=== PATIENT | male | born 1955 | race Caucasian/White ===

== ENCOUNTER 2017-09-08 08:58 | Outpatient (RCR) | payer BC, SELFPAY ==
[2017-09-08 10:34] LABS: Prothrombin Time (Protime)PT. 22.1 SECONDS (11.7-14.9)
== END 2017-09-08 09:15 | disposition home or self-care (01) ==
LOC: LAB 08:58
PROVIDERS: Family Provider Family Medicine; PCP Family Medicine; Visit Provider Internal Medicine Cardiovascular Disease
DX: I48.0 Paroxysmal atrial fibrillation (principal)
CPT/HCPCS: 36415; 85610

== ENCOUNTER → 2017-11-09 14:07 | Outpatient (CLI) | payer BC, SELFPAY ==
--- NOTE | 2017-11-09 14:08 | ECHOD_ITS ---
Reason For Study: MVP Procedure This was a 2D Doppler, Color Flow transthoracic echocardiogram. Exam performed in department. Left Ventricle Normal LV size. Moderate concentric left ventricular hypertrophy. Left ventricular systolic function is normal. The estimated ejection fraction is 60 %. Transmitral doppler flow suggestive of impaired relaxation of left ventricle. No regional wall motion abnormalities noted. Right Ventricle Normal RV size. Normal systolic function. Atria Normal left atrium. Normal right atrium. Mitral Valve Bileaflet diffuse mitral valve thickening. Mild (1+) eccentric mitral valve insufficiency. Tricuspid Valve Normal tricuspid valve. Unable to estimate RV systolic pressure, pulmonary artery pressure probably normal. Aortic Valve Trisinus/trileaflet aortic valve. Mild (1+) eccentric aortic valve insufficiency. Pulmonic Valve Normal pulmonic valve. Great Vessels Normal aortic root. The pulmonary artery is normal size. Normal inferior vena cava. Pericardium/Pleural No pericardial effusion. MMode/2D Measurements & Calculations LVIDd: 3.7 cm IVSd: 1.5 cm Ao root diam: 3.8 cm LVIDs: 2.7 cm LVPWd: 1.4 cm RVDd: 3.2 cm FS: 26.4 % LAV(MOD-bp): 33.1 ml EDV(MOD-sp4): 157.3 ml SV(MOD-sp4): 107.5 ml LAV(MOD-bp) Indexed: 16.9 ml/m2 ESV(MOD-sp4): 49.8 ml LAV(MOD-sp2): 35.7 ml EF(MOD-sp4): 68.3 % LAV(MOD-sp4): 31.1 ml LA A4 area: 12.8 cm2 RA A4 area: 13.9 cm2 Time Measurements MV dec time: 0.27 sec Doppler Measurements & Calculations MV E max joshua: 56.8 cm/sec Lat Peak E' Joshua: 8.7 cm/sec Med Peak E' Joshua: 6.9 cm/sec MV A max joshua: 79.5 cm/sec E/E' lat: 6.6 E/E' med: 8.3 MV E/A: 0.71 Ao V2 max: 114.3 cm/sec LV V1 max: 103.7 cm/sec PA V2 max: 75.5 cm/sec Ao max P.2 mmHg LV V1 max P.3 mmHg Interpretation Summary Normal LV size. Moderate concentric left ventricular hypertrophy. Left ventricular systolic function is normal. The estimated ejection fraction is 60 %. Transmitral doppler flow suggestive of impaired relaxation of left ventricle Ordering Physician: Nanette Cullen/Roger Alvarado Referring Physician: NANETTE MCDANIEL Performed By: Cathy Ruff RDCS
== END ==
PROVIDERS: Family Provider Family Medicine; PCP Family Medicine; Visit Provider Nurse Practitioner Family
DX: I48.0 Paroxysmal atrial fibrillation (principal); I42.8 Other cardiomyopathies; I34.1 Nonrheumatic mitral (valve) prolapse; I10 Essential (primary) hypertension
CPT/HCPCS: 93306

== ENCOUNTER 2017-11-21 10:51 | Inpatient (IN) | payer BC, SELFPAY ==
--- NOTE | 2017-11-06 08:58 | HP.PCM_ITS ---
History and Physical DATE OF SURGERY: 11/21/2017 SCHEDULED PROCEDURE: RIGHT TOTAL HIP ARTHROPLASTY HISTORY OF PRESENT ILLNESS: This is a 62-year-old male who is been having ongoing pain in his right hip for the past 1 year. Pain can reach as high as an 8 out of 10. Pain is been intermittent, dull, aching, sharp, stabbing, and sore. Pain is increased with going up and down stairs, walking any amount of distance, sitting for extended periods of time, and driving. Patient states exercise has been minimally helpful. Patient has difficult time with activities of daily living including showering, getting dressed, shopping, and doing any lifting or squatting. Pain is located in the groin. Pain does awaken him at night. Patient has tried conservative measures consisting of rest and elevation with minimal relief. Patient has had previous corticosteroid injection into the hip and spine with no relief in symptoms. Patient has also been through formal physical therapy and home exercises with minimal relief. He has tried oral medications consisting of Tylenol with no relief in symptoms. Patient does take Coumadin due to previous history of atrial fibrillation. Patient denies previous surgery on the right hip. He has been using a cane as needed. After failing conservative measures and discussing all treatment options with Dr. Fernandez, the patient would like to proceed with a right total hip arthroplasty. Patient has history of atrial fibrillation in which she underwent a cardioversion previously. Since then he has never been in atrial fibrillation. He has been taking Coumadin since. He also has history of gastric reflux disease and cardiomyopathy. Patient currently denies any chest pain, shortness of breath, fevers chills, recent infection. Patient is currently undergoing preoperative clearance by his correctional facility psychiatrist Dr. Alvarado. Anticipate stopping Coumadin 5 days prior to surgery. Patient has received clearance from his primary care physician Dr. Lopez. REVIEW OF SYSTEMS: ROS: Const: Denies change in appetite, fever,or weight change. CV: Denies chest pain, heart murmur and irregular heartbeat. Resp: Denies cough, pneumonia, SOB, tuberculosis and wheezing. GI: Denies constipation, diarrhea, difficulty swallowing, heartburn, nausea, bloody stools and vomiting. : . (F Genital Sx) Urinary: denies incontinence. Musculo: Reports limp, trouble walking and weakness, but denies leg swelling. Skin: Denies Raynaud's, history of shingles and tattoo. Neuro: Denies ambulatory dysfunction, dizziness, numbness/tingling and tremor. Psych: Denies anxiety, insomnia and stress. Jaylan/Lymph: Reports bleeding/bruising tendency, but denies anemia and past transfusion. Reviewed, no changes. PAST MEDICAL HISTORY: Advance Care Plan: Other Directive, LIVING WILL Effective Date: 10/23/2017 PMH: Medical Problems: Gout, reflux, Afib, cardio myelopathy Accidents: Fracture - RT WRIST RT ELBOW Surgical Hx: Knee Arthroscopy Lt Anesthesia Complications: None Assistive Devices: Glasses Reviewed and updated. SOCIAL HISTORY: SH: Marital: .Occupation: Retired.Work Status: Retired.Hand Dominance: Right- handed. Personal Habits: Cigarette Use: Never Smoked Cigarettes.Alcohol: Occasionally.Drug Use: Denies Use.Enjoy Exercising: Daily. Reviewed, no changes. VITALS: Ht: 69 Wt: 176lb Wt k.834 BMI: 26.0 BP: 122/76 Pulse: 80 Resp: 16 T: 97.7 T: 36.5C ALLERGIES: No Known Drug Allergy MEDICATIONS: Aspirin 81 Low Dose 81 mg 1po qday, Welchol 625 mg 4 tabs by mouth daily, Flecainide Acetate 100 mg 1 by mouth every day, Valsartan 40 mg 1po qday, Metoprolol 50 mg 1po qday, Warfarin Sodium 4 mg prn, Nexium 20 mg 1 by mouth every day PRE-OP EXAM: General appearance:NORMAL Other: Eyes: Conjunctivae and lids: NORMAL Pupils: ERR Ears, Nose, Mouth, and Throat: NORMAL Other: Inspection of lips, teeth and gums: NORMAL Other: Neck: Examination of neck: no masses noted. Respiratory: Assessment of respiratory effort: NORMAL Other: Ausculation of lungs: clear to ausculation no wheeses, ronchi or rales. Cardiovascular: Ausculation of heart: regular rate and rhythem, no mummurs, gallops or rubs. Exam of carotid arteries: NORMAL Other: Gastrointestinal: Exam of abdomen: soft, nontender, nondistended bowel sounds present. PHYSICAL EXAMINATION: Patient walks with an antalgic gait. Range of motion of the right hip is 90? of flexion, internal rotation to 10?, and external rotation to 20?. Pain is increased with internal and external rotation. Sensations intact to light touch. IMAGING STUDIES: X-rays were obtained at [facility] [place] on November 06, 2017 including AP pelvis, AP right hip, and crossfire lateral right hip reveals joint space narrowing, subchondral sclerosis, and osteophyte formation consistent with moderate to severe osteoarthritis of the right hip. No findings for fracture. No lytic or blastic lesions. IMPRESSION: 1. Moderate to severe right hip osteoarthritis 2. History of atrial fibrillation with previous cardioversion: Currently on Coumadin 3. Gastric reflux disease 4. History of gout 5. Cardiomyopathy PLAN: Dr. Fernandez did discuss and review with the patient all treatment options including surgical versus nonsurgical. Patient wishes to proceed with above- stated procedure. Potential risks, benefits, and complications of this procedure were discussed in detail including but not limited to , infection , nerve and blood vessel damage, persistent pain, numbness, tingling, paresthesias, blood clot, pulmonary embolism, and requirement for further surgery. The patient expressed full understanding has no further questions for the doctor. Patient does agree to proceed with the above-stated procedure and has signed the surgery consent form. ___ I have re-examined the patient. There are no clinical changes since date of exam. ___ See progress notes for changes. ___ Dictated on admission Date: Time: Signature:
[2017-11-06 10:28] VITALS: BP 130/80; PULSE 75; RESP 16; TEMP 36.4; O2SAT 96; BMI 25.9
[2017-11-06 11:21] LABS: Absolute Lymphocyte Count 1.47 X10^3/ul (0.83-4.51); Absolute Neutrophil Count 5.4 X10^3/uL (2.0-7.7); Basophil# 0.04 X10^3/uL; Basophil% 0.5 % (0-1); Eosinophil# 0.07 X10^3/uL; Eosinophils% 0.9 % (0-5); Hematocrit 42.8 % (40-54); Hemoglobin 14.6 g/dl (13.0-16.5); Lymphocyte # 1.47 X10^3/ul (4.0); Lymphocyte % 18.4 % (19-41); Mean Corp Hgb Conc 34.1 g/gl (32-36); Mean Corpuscular Hgb 33.5 pg (27.0-32.0); Mean Corpuscular Volume 98.2 fL (80-94); Mean Platelet Vol. 9.3 fl (6.2-12.0); Monocyte# 1.03 X10^3/uL; Monocyte% 12.9 % (0-10); Neutrophil % 67.3 % (47-70); Platelet Count 232 K/mm3 (150-450); RBC Distribution Width SD 42.2 fl (35.1-43.9); Red Blood Count 4.36 M/mm3 (4.6-6.2)
[2017-11-06 11:22] LABS: POSITIVE COUNT NO; POSITIVE DIFFERENTIAL NO; POSITIVE MORPHOLOGY NO
[2017-11-06 11:42] LABS: Anion Gap 8 (5-15); BUN 9 mg/dL (7-18); BUN/Creat Ratio 11.2 RATIO (10-20); Calcium,Total 8.5 mg/dL (8.5-10.1); Chloride 108 mmol/L (98-107); EST Glomerular Filtration Rate 103 mL/min (>60); Est Glom Filt Rate - Afr Amer 125 mL/min (>60); Estimated Creatinine Clearance 94.51 ml/min; Glucose 87 mg/dL (74-106); Potassium 3.9 mmol/L (3.5-5.1); Sodium Level 141 mmol/L (136-145)
--- NOTE | 2017-11-16 15:44 | CASEMGMT ---
Attempted call, left [facility], and Mr. Olvera immediately returned call. Mr. Olvera reports he has a FWW and access to a raised toilet seat if needed. He reports he has a first floor set-up, and has 2 entry steps. He lives with his sig other, and has transportation to therapy. He plans to complete therapy at [facility]. RN CM informed patient one of the RN CM would follow-up s/p surgery to ensure all transition and care coordination needs were met. Elbert Mesa BSN, RN-BC, CCM
[2017-11-21] VITALS (9 sets, daily range): BP systolic 97–154; BP diastolic 62–93; PULSE 52–82; RESP 16–18; TEMP 36.1–37.2; O2SAT 96–100; BMI 25.9; BMI 25.8
--- NOTE | 2017-11-21 06:48 | RAD_ITS ---
STUDY: X-RAY - PELVIS AND RIGHT HIP REASON FOR EXAM: Male, 62 years old. Postop hip replacement. TECHNIQUE: Radiological exam, hip, unilateral, with pelvis when performed; 2 or 3 views. COMPARISON: None. FINDINGS: There is a right hip arthroplasty with a satisfactory appearance, and no evidence for complication. Normal bilateral iliac wings, sacroiliac joints and visualized sacrum. Normal bilateral superior and inferior pubic rami. Normal pubic symphysis. Normal bilateral ischial tuberosities. RAD/Hip Min 2 Views (Portable) IMPRESSION: There is a right hip arthroplasty with a satisfactory appearance, and no evidence for complication. Electronically Signed: Valeriano Zuleta MD at 16:06 EDT , Service support ,
--- NOTE | 2017-11-21 10:25 | OP.PCM_ITS ---
Report of Operation Date of Procedure: 11/21/17 Pre-Operative Diagnosis: Right hip primary osteoarthritis Post-Operative Diagnosis: Right hip primary osteoarthritis Surgery/Procedure Performed:: Right direct anterior total hip replacement Description of Surgical Findings:: Stable hip with equal leg length dairy farm supervisor: Magdaleno Spicer Type of Anesthesia:: Spinal Anesthesiologist: Philip Carrillo Special Medications: 2 g Ancef, 1 g TXA at incision, 1 g TXA closure, 10 mg Decadron, joint cocktail (5 mg Duramorph, 30 mL of 0.5% Ropivicaine, 1000 units of epinephrine, 30 mg of Toradol) Specimen's removed: Bony cuts Estimated Blood Loss (mL): 150 Fluids Replaced: 1400 Description of Procedure: Components used: 1. Anato Columbus femoral stem size 7 2. Columbus trident acetabular shell size 56 mm 3. Columbus X3 polyethylene f 4. Natalie Biolox delta 36mm, 0mm femoral head Brief history operative indications: 62 yo m who failed conservative measures for their hip osteoarthritis. X-rays were consistent with osteoarthritis including joint space narrowing, osteophyte formation and subchondral cysts. Total hip replacement was discussed with the patient with risks and benefits including but not limited to blood loss, DVTs, PEs, neurovascular damage, dislocation, general risks of anesthesia including loss of life. Patient demonstrated an understanding medical clearance is obtained the patient was consented for surgery. Procedure: On the date of procedure the patient's R hip was marked in the preoperative area. Patient was then taken back to the operating room where anesthesia assumed control of the C-spine and airway and administered anesthetic. Patient was transferred to the operating table and placed in the supine position. The hips were placed at the break of the bed and a sacral bump was placed. The R lower extremity was then prepped out in a sterile fashion using chlorhexidine while the surgeon scrubbed. The PA was vital in the positioning of the patient. Upon reentering the room the R lower extremity was draped in the standard orthopedic fashion and the incision was marked. A timeout was called and everyone agreed upon the side, the site, the procedure be performed, antibody given, and patient's identity. At this time incision was made through skin, subcutaneous tissue, and fat down to fascia. The fascia was then incised and the TFL was retracted laterally. A retractor was placed on the lateral border of the femoral neck. Attention was directed to the inferior portion of the approach and all crossing vessels were identified and appropriately coagulated. A retractor was then placed on the medial portion of the femoral neck. The anterior capsule was then cleared of all soft tissue and then H shaped capsulotomy was made. The retractors were then placed inside the capsule. The femoral neck was identified and a cleanup cut was made. At this time a power corkscrew was used to remove the femoral head. Attention was then turned toward the acetabulum where the soft tissues were appropriately retracted and the acetabulum was sequentially reamed to 55 mm. A 56 mm cup was then selected and impacted into place. Acetabular liner was impacted into place and locking mechanism was verified. The position of the acetabular cup was then verified under live fluoroscopy. Attention was then turned to the femur. Soft tissue releases on the medial and lateral femoral neck were appropriately done, the leg was externally rotated and lateralized. A David retractor was placed medially and proximally to the greater trochanter this allowed appropriate visualization and exposure of the femoral canal. Rongeour was then used to remove excess lateral bone. A canal finder and entry broach were used to open the proximal canal. Once we verified we were down the femoral canal we subsequently broached up to a size 7 femur. The appropriate neck was placed in the previously selected head was trialed with a 0 mm neck. Traction was pulled and the hip was reduced with internal rotation. Once it was appropriately reduced and stability was checked. There was minimal shuck, equal leg lengths and appropriate stability with hyperextension and external rotation as well as with 90? flexion and internal rotation. Fluoroscopy was then also used to verify the position of the components and leg lengths using the contralateral side for comparison. The trial components were then dislocated the proximal femur was again exposed and the components were removed from the wound. The final components were verified and opened. The wound was copiously irrigated out with normal saline. The acetabulum was checked for any residual debris. The final components were placed and impacted. Traction and internal rotation were again used to reduce the hip. After adequate reduction the hip remained stable with appropriate leg lengths. The final components were once again checked with live fluoroscopy and were found to be satisfactory. The wound was then copiously irrigated with normal saline once more, and hemostasis was obtained. Closure was then done using #1 Vicryl runner to close the fascia. A 2-0 vicryl interuppted sutures were used to close the subcutaneous skin. A 3-0 Monocryl and Steri-Strips were used for final skin closure. A Silverlon dressing was placed. Patient was awakened by anesthesia and [facility]. Patient was then transferred to the PACU for recovery. Postoperative plan: Patient will get 24 hours postop antibiotics. Patient will get in-house physical therapy and will be weight-bear as tolerated. Patient will follow up in office in 2 weeks for a wound check and x-rays. During the course of the procedure the physician junior administrative assistant played a vital role. His intimate knowledge of my steps in the procedure aided in safe and expedient completion of the procedure. the PA played a vital rolls in positioning particularly in obtaining the appropriate position at the break of the bed and placing the sacral bump. The PA was also vital in the retraction of soft tissues during the exposure and especially the femoral work as this is a vital part of the procedure to prevent neurovascular damage, fractures, cortical breaches and other complications. The PA was also vital and protecting soft tissues during times of bony cuts and reaming. He also played a vital role in closure with my direct supervision. The PA was also important during reduction and dislocation of the joint and trials intraoperatively. Grafts/Implants Used: Natalie Anato - Complications none - Admit VTE Documentation VTE Present on Admission: No VTE Mechan Device Prophylaxis: SCD's, Thigh High WILL Hose VTE Pharm Prophylaxis ordered?: Yes
[2017-11-21] MEDS: Scopolamine 1mg/72hr Patch 1 PATCH TD (11:33)
[2017-11-21] MEDS: Acetaminophen 500 MG Tablet 1000 MG PO ×3 (11:33→21:18)
[2017-11-21] MEDS: Celecoxib 200 MG Capsule 400 MG PO (11:33)
[2017-11-21] MEDS: oxyCODONE HCl Cr 10 MG Tablet PO (11:33)
[2017-11-21] MEDS: Cefazolin 2 GM in 0.9% Normal Saline 100 ML IV (12:30)
[2017-11-21 13:26] LABS: Prothrombin Time Fingerstick 12.7 SEC (11.9-14.4)
--- NOTE | 2017-11-21 13:30 | RAD_ITS ---
STUDY: X-RAY - PELVIS AND RIGHT HIP REASON FOR EXAM: Hip pain. TECHNIQUE: Radiological exam, hip, unilateral, with pelvis when performed; 2 or 3 views. COMPARISON: Radiographs 05/04/2017. FINDINGS: 2 fluoroscopic views demonstrate a total right hip arthroplasty in satisfactory position. Electronically Signed: Sukumar Adkins MD at 16:13 EDT Tel , Service support , RAD/Hip 1 view with Pelvis
--- NOTE | 2017-11-21 16:50 | PCM.PROGNOTE ---
<Hugo Valenzuela - Last Filed: 11/21/17 16:50> Subjective: Pt of Dr. Fernandez who underwent total right hip today. Currently complains of mild dizziness and states he aspirated a imtiaz doon after surgery. Currently he feels no SOB, cough, nausea, or pain. He has tingling in his BLE. He has had several surgeries in the past, denies any hx of complications with sedation. He had AF in 2008, after which he was successfully cardioverted with no repeat episodes, since then maintained on toprol and tambocor with warfarin for OAC per Dr. Alvarado. Currently no palp. - Physical Exam General: Alert, Oriented x3, Cooperative HEENT: Atraumatic, PERRLA, EOMI, Normocephalic Neck: Supple, No JVD, Negative Carotid Bruits Lungs: Clear to auscultation, Normal air movement Cardiovascular: Regular rate, No murmurs Abdomen: Bowel Sounds Present, Soft, Non Tender Extremities: No edema, Capillary Refill Less than 3 Seconds Skin: No rashes, No breakdown Musculoskeletal: No Tenderness to Palpation of Joints or Extremities Neurological: Cranial nerves II-XII grossly intact Psych/Mental Status: Normal Affect, Appropriate Vital Signs Temp Pulse Resp BP Pulse Ox 97.5 F L 58 L 16 120/72 100 11/21/17 15:35 11/21/17 15:35 11/21/17 15:35 11/21/17 15:35 11/21/17 15:35 Oxygen Delivery Method Room Air Weight: 79.379 kg Body Mass Index (BMI) 25.8 Intake and Output for Last 24 Hours 11/19/17 11/20/17 11/21/17 23:59 23:59 23:59 Intake Total 1999 Balance 1999 Laboratory Tests Past 24 Hrs 11/21/17 11:14 POC PT 12.7 INR 1.10 Medical Necessity - Tobacco Use Smoking Status: Never smoker Assessment/Plan 1. osteoarthritis right hip - s/p right total hip POD#[address] Fernandez - currently recovering well with pain well controlled, sitting upright in chair, mild dizziness likely s/e of sedation recovery. Pt choked on a imtiaz doon, slowly advance diet, pt likely not alert enough at the time but seems well alert and upright with clear lungs and no SOB or cough, no O2 demand. 2. PAF - stable since 2008 s/p cardioversion maintained on tambocor, wafarin, metoprolol, pt of Dr. Alvarado 3. GERD - PPI 4. HLD - hold welchol until discharge DVT ppx: restart warfarin tonight, currently subtherapeutic at normal level as held for surgery so in the meantime he has SCDs applied. follow inr Pt seen by Hugo Valenzuela PA-C under the supervision of Dr. Hernandez <Shawn Hernandez - Last Filed: 11/21/17 17:12> Subjective: 59-year-old white male who underwent a right anterior total hip replacement by Dr. Fernandez. No current complaints at this time. - Physical Exam General: Alert, Cooperative HEENT: Atraumatic, Normocephalic Oral: Moist Mucosa, No Gingival or Mucosal Lesions/ Ulcerations Neck: No Nodes, Thyroid Normal Size and Texture Lungs: Clear to auscultation, Normal air movement Cardiovascular: Regular rate, Regular Rhythm, Normal S1, Normal S2, No murmurs Abdomen: Bowel Sounds Present, Soft, Non Tender, Non-Distended Extremities: No edema, No Calf Tenderness Skin: No rashes, No breakdown Musculoskeletal: No Muscle Wasting Neurological: Sensory exam intact to light touch and pain, Coordination normal Psych/Mental Status: Normal Affect, Appropriate Vital Signs Temp Pulse Resp BP Pulse Ox 36.4 C L 58 L 16 120/72 100 11/21/17 15:35 11/21/17 15:35 11/21/17 15:35 11/21/17 15:35 11/21/17 15:35 Oxygen Delivery Method Room Air Weight: 79.379 kg Body Mass Index (BMI) 25.8 Intake and Output for Last 24 Hours 11/19/17 11/20/17 11/21/17 23:59 23:59 23:59 Intake Total 1999 Balance 1999 Laboratory Tests Past 24 Hrs 11/21/17 11:14 POC PT 12.7 INR 1.10 Medical Necessity - Tobacco Use Smoking Status: Never smoker Assessment/Plan Patient seen and examined independently. Agree with the above note by the physician dairy and food laboratory assistant. 1. Paroxysmal atrial fibrillation Stable. Cardiogram from November 09 showed an ejection fraction of 60%. Continue with metoprolol succinate, flecainide and warfarin. 2. Hypertension Stable. Continue with valsartan and in addition to his metoprolol. 3. DVT prophylaxis: Patient is back on Coumadin. Patient will be also on SCDs. 4. Status post total right hip arthroplasty: Management per Dr. Fernandez. Thank you for the consult. The hospitalist service will follow with you. Code Visit Inpatient E&M: 15417 Subs Hosp L2
[2017-11-21] MEDS: Famotidine 20 MG Tablet PO (16:58)
[2017-11-21] MEDS: Senna/Docusate Sodium 1 Tablet 2 TABLET PO ×2 (16:58→21:18)
--- NOTE | 2017-11-21 17:00 | PN_ITS ---
<Hugo Valenzuela - Last Filed: 11/21/17 16:50> Subjective: Pt of Dr. Fernandez who underwent total right hip today. Currently complains of mild dizziness and states he aspirated a imtiaz doon after surgery. Currently he feels no SOB, cough, nausea, or pain. He has tingling in his BLE. He has had several surgeries in the past, denies any hx of complications with sedation. He had AF in 2008, after which he was successfully cardioverted with no repeat episodes, since then maintained on toprol and tambocor with warfarin for OAC per Dr. Alvarado. Currently no palp. - Physical Exam General: Alert, Oriented x3, Cooperative HEENT: Atraumatic, PERRLA, EOMI, Normocephalic Neck: Supple, No JVD, Negative Carotid Bruits Lungs: Clear to auscultation, Normal air movement Cardiovascular: Regular rate, No murmurs Abdomen: Bowel Sounds Present, Soft, Non Tender Extremities: No edema, Capillary Refill Less than 3 Seconds Skin: No rashes, No breakdown Musculoskeletal: No Tenderness to Palpation of Joints or Extremities Neurological: Cranial nerves II-XII grossly intact Psych/Mental Status: Normal Affect, Appropriate Vital Signs Temp Pulse Resp BP Pulse Ox 97.5 F L 58 L 16 120/72 100 11/21/17 15:35 11/21/17 15:35 11/21/17 15:35 11/21/17 15:35 11/21/17 15:35 Oxygen Delivery Method Room Air Weight: 79.379 kg Body Mass Index (BMI) 25.8 Intake and Output for Last 24 Hours 11/19/17 11/20/17 11/21/17 23:59 23:59 23:59 Intake Total 1999 Balance 1999 Laboratory Tests Past 24 Hrs 11/21/17 11:14 POC PT 12.7 INR 1.10 Medical Necessity - Tobacco Use Smoking Status: Never smoker Assessment/Plan 1. osteoarthritis right hip - s/p right total hip POD#[address] Fernandez - currently recovering well with pain well controlled, sitting upright in chair, mild dizziness likely s/e of sedation recovery. Pt choked on a imtiaz doon, slowly advance diet, pt likely not alert enough at the time but seems well alert and upright with clear lungs and no SOB or cough, no O2 demand. 2. PAF - stable since 2008 s/p cardioversion maintained on tambocor, wafarin, metoprolol, pt of Dr. Alvarado 3. GERD - PPI 4. HLD - hold welchol until discharge DVT ppx: restart warfarin tonight, currently subtherapeutic at normal level as held for surgery so in the meantime he has SCDs applied. follow inr Pt seen by Hugo Valenzuela PA-C under the supervision of Dr. Hernandez <Shawn Hernandez - Last Filed: 11/21/17 17:12> Subjective: 59-year-old white male who underwent a right anterior total hip replacement by Dr. Fernandez. No current complaints at this time. - Physical Exam General: Alert, Cooperative HEENT: Atraumatic, Normocephalic Oral: Moist Mucosa, No Gingival or Mucosal Lesions/ Ulcerations Neck: No Nodes, Thyroid Normal Size and Texture Lungs: Clear to auscultation, Normal air movement Cardiovascular: Regular rate, Regular Rhythm, Normal S1, Normal S2, No murmurs Abdomen: Bowel Sounds Present, Soft, Non Tender, Non-Distended Extremities: No edema, No Calf Tenderness Skin: No rashes, No breakdown Musculoskeletal: No Muscle Wasting Neurological: Sensory exam intact to light touch and pain, Coordination normal Psych/Mental Status: Normal Affect, Appropriate Vital Signs Temp Pulse Resp BP Pulse Ox 36.4 C L 58 L 16 120/72 100 11/21/17 15:35 11/21/17 15:35 11/21/17 15:35 11/21/17 15:35 11/21/17 15:35 Oxygen Delivery Method Room Air Weight: 79.379 kg Body Mass Index (BMI) 25.8 Intake and Output for Last 24 Hours 11/19/17 11/20/17 11/21/17 23:59 23:59 23:59 Intake Total 1999 Balance 1999 Laboratory Tests Past 24 Hrs 11/21/17 11:14 POC PT 12.7 INR 1.10 Medical Necessity - Tobacco Use Smoking Status: Never smoker Assessment/Plan Patient seen and examined independently. Agree with the above note by the physician occupational therapist assistant. 1. Paroxysmal atrial fibrillation * Stable. * Cardiogram from November 09 showed an ejection fraction of 60%. * Continue with metoprolol succinate, flecainide and warfarin. 2. Hypertension * Stable. Continue with valsartan and in addition to his metoprolol. 3. DVT prophylaxis: Patient is back on Coumadin. Patient will be also on SCDs. 4. Status post total right hip arthroplasty: Management per Dr. Fernandez. Thank you for the consult. The hospitalist service will follow with you. Code Visit Inpatient E&M: 20561 Subs Hosp L2
[2017-11-21] MEDS: Cefazolin 1 GM/50 ML BAG IV (20:56)
[2017-11-21] MEDS: Flecainide 100 MG Tablet PO (21:15)
[2017-11-22] VITALS: BP 100/64; PULSE 76; RESP 16; TEMP 37.1; O2SAT 97
[2017-11-22] MEDS: Lactated Ringers 1,000 ML 125 ML IV (00:11)
[2017-11-22] MEDS: Ketorolac 15 MG/ML Vial IV (00:23)
[2017-11-22] MEDS: 0.9% NaCl Peripheral Flush Adult/Peds IV ×2 (00:24→05:54)
[2017-11-22 02:00] VITALS: BP 114/79; PULSE 87; RESP 16; TEMP 37.4; O2SAT 94
[2017-11-22] MEDS: Cefazolin 1 GM/50 ML BAG IV (04:45)
[2017-11-22] MEDS: oxyCODONE 5 MG Tablet PO (06:12)
--- NOTE | 2017-11-22 06:37 | NURSING ---
Removed scopalmine patch, as patient was not nauseated, and was slightly confused during the night.
[2017-11-22 06:43] LABS: Hematocrit 31.5 % (40-54); Hemoglobin 10.4 g/dl (13.0-16.5); Mean Corpuscular Hgb 32.8 pg (27.0-32.0); Mean Corpuscular Volume 99.4 fL (80-94); Mean Platelet Vol. 9.3 fl (6.2-12.0); Platelet Count 230 K/mm3 (150-450); RBC Distribution Width CV 11.9 % (11.6-14.6); RBC Distribution Width SD 41.7 fl (35.1-43.9); Red Blood Count 3.17 M/mm3 (4.6-6.2); White Blood Count 12.7 K/mm3 (4.4-11.0)
[2017-11-22 06:44] LABS: Scan Indicated on CBC? Y/N NO
[2017-11-22 06:47] LABS: International Normalized Ratio 1.1; Prothrombin Time (Protime)PT. 14.5 SECONDS (11.7-14.9)
[2017-11-22 07:04] LABS: Anion Gap 8 (5-15); BUN 12 mg/dL (7-18); BUN/Creat Ratio 11.3 RATIO (10-20); Calcium,Total 8.2 mg/dL (8.5-10.1); Chloride 106 mmol/L (98-107); Creatinine, Serum 1.06 mg/dL (0.70-1.30); EST Glomerular Filtration Rate 75 mL/min (>60); Est Glom Filt Rate - Afr Amer 91 mL/min (>60); Estimated Creatinine Clearance 71.33 ml/min; Glucose 132 mg/dL (74-106); Potassium 3.8 mmol/L (3.5-5.1); Sodium Level 139 mmol/L (136-145)
--- NOTE | 2017-11-22 07:09 | PCM.PN.ORT ---
Subjective: The patient was sitting in bedside chair upon examination. Patient denies any chest pain, shortness of breath, dizziness, lightheadedness, nausea or vomiting, or calf pain. Pain is controlled on medications. No adverse overnight events. Overall patient is doing well. Patient did have some dizziness yesterday but this has resolved. Patient states he possibly wants to go home today if pain is controlled and he tolerates therapy well. Patient has been placed back on his warfarin. He has followed by his monitor tech for this treatment. Objective: Vital signs stable and afebrile. Patient is able to plantarflex and dorsiflex actively. Sensation is intact to light touch to saphenous, sural, superficial and deep peroneal, and tibial distribution. Dressing is clean dry and intact. Negative Homans bilaterally, negative signs and symptoms of DVT. - Physical Exam General: Alert, Oriented x3, Cooperative, No apparent distress Vital Signs Temp Pulse Resp BP Pulse Ox 99.3 F H 87 16 114/79 94 11/22/17 02:00 11/22/17 02:00 11/22/17 02:00 11/22/17 02:00 11/22/17 02:00 Oxygen Delivery Method Room Air Weight: 79.379 kg Body Mass Index (BMI) 25.8 Intake and Output for Last 24 Hours 11/20/17 11/21/17 11/22/17 23:59 23:59 23:59 Intake Total 2570 / 2570 2232 / 2232 Output Total 1450 / 1450 Balance 2570 / 2570 782 / 782 Laboratory Tests Past 24 Hrs 11/21/17 11/22/17 11/22/17 11:14 06:08 06:08 WBC 12.7 H RBC 3.17 L Hgb 10.4 L Hct 31.5 L MCV 99.4 H MCH 32.8 H MCHC 33.0 RDW 11.9 RDW Differential 41.7 Plt Count 230 MPV 9.3 POC PT 12.7 PT INR 1.10 Sodium 139 Potassium 3.8 Chloride 106 Carbon Dioxide 25.0 Anion Gap 8 BUN 12 Creatinine 1.06 Estim Creat Clear Calc 71.33 Est GFR (MDRD) Af Amer 91 Est GFR (MDRD) Non-Af 75 BUN/Creatinine Ratio 11.3 Glucose 132 H Calcium 8.2 L 11/22/17 06:08 WBC RBC Hgb Hct MCV MCH MCHC RDW RDW Differential Plt Count MPV POC PT PT Pending INR Pending Sodium Potassium Chloride Carbon Dioxide Anion Gap BUN Creatinine Estim Creat Clear Calc Est GFR (MDRD) Af Amer Est GFR (MDRD) Non-Af BUN/Creatinine Ratio Glucose Calcium Medical Necessity - Tobacco Use Smoking Status: Never smoker Assessment/Plan 1. S/P right direct anterior total hip arthroplasty POD #1 2. Continue Pain Medications: Tylenol and OxyIR 3. DVT Prophylaxis: Patient has been placed back on his warfarin 4. PT/OT: Weightbearing as tolerated 5. H & H: 10.4/31.5, asymptomatic 6. Leukocytosis: Currently 12.7, afebrile. Patient did receive Decadron intraoperatively 7. Encouraged Incentive Spirometry 8. Continue postoperative medical management per medicine 9. Disposition: Plan will be for possible discharge home today if pain is controlled and patient tolerates formal physical therapy. Prescriptions will be attached to chart. Patient will follow-up per postop instructions. Patient has been informed to follow-up with his monitor tech for INR testing until he is therapeutic with his warfarin. Patient voiced understanding and agreement with plan.
--- NOTE | 2017-11-22 07:12 | PN.ORTHO_ITS ---
Subjective: The patient was sitting in bedside chair upon examination. Patient denies any chest pain, shortness of breath, dizziness, lightheadedness, nausea or vomiting , or calf pain. Pain is controlled on medications. No adverse overnight events. Overall patient is doing well. Patient did have some dizziness yesterday but this has resolved. Patient states he possibly wants to go home today if pain is controlled and he tolerates therapy well. Patient has been placed back on his warfarin. He has followed by his talent acquisition partner for this treatment. Objective: Vital signs stable and afebrile. Patient is able to plantarflex and dorsiflex actively. Sensation is intact to light touch to saphenous, sural, superficial and deep peroneal, and tibial distribution. Dressing is clean dry and intact. Negative Homans bilaterally, negative signs and symptoms of DVT. - Physical Exam General: Alert, Oriented x3, Cooperative, No apparent distress Vital Signs Temp Pulse Resp BP Pulse Ox 99.3 F H 87 16 114/79 94 11/22/17 02:00 11/22/17 02:00 11/22/17 02:00 11/22/17 02:00 11/22/17 02:00 Oxygen Delivery Method Room Air Weight: 79.379 kg Body Mass Index (BMI) 25.8 Intake and Output for Last 24 Hours 11/20/17 11/21/17 11/22/17 23:59 23:59 23:59 Intake Total 2570 / 2570 2232 / 2232 Output Total 1450 / 1450 Balance 2570 / 2570 782 / 782 Laboratory Tests Past 24 Hrs 11/21/17 11/22/17 11/22/17 11:14 06:08 06:08 WBC 12.7 H RBC 3.17 L Hgb 10.4 L Hct 31.5 L MCV 99.4 H MCH 32.8 H MCHC 33.0 RDW 11.9 RDW Differential 41.7 Plt Count 230 MPV 9.3 POC PT 12.7 PT INR 1.10 Sodium 139 Potassium 3.8 Chloride 106 Carbon Dioxide 25.0 Anion Gap 8 BUN 12 Creatinine 1.06 Estim Creat Clear Calc 71.33 Est GFR (MDRD) Af Amer 91 Est GFR (MDRD) Non-Af 75 BUN/Creatinine Ratio 11.3 Glucose 132 H Calcium 8.2 L 11/22/17 06:08 WBC RBC Hgb Hct MCV MCH MCHC RDW RDW Differential Plt Count MPV POC PT PT Pending INR Pending Sodium Potassium Chloride Carbon Dioxide Anion Gap BUN Creatinine Estim Creat Clear Calc Est GFR (MDRD) Af Amer Est GFR (MDRD) Non-Af BUN/Creatinine Ratio Glucose Calcium Medical Necessity - Tobacco Use Smoking Status: Never smoker Assessment/Plan 1. S/P right direct anterior total hip arthroplasty POD #1 2. Continue Pain Medications: Tylenol and OxyIR 3. DVT Prophylaxis: Patient has been placed back on his warfarin 4. PT/OT: Weightbearing as tolerated 5. H & H: 10.4/31.5, asymptomatic 6. Leukocytosis: Currently 12.7, afebrile. Patient did receive Decadron intraoperatively 7. Encouraged Incentive Spirometry 8. Continue postoperative medical management per medicine 9. Disposition: Plan will be for possible discharge home today if pain is controlled and patient tolerates formal physical therapy. Prescriptions will be attached to chart. Patient will follow-up per postop instructions. Patient has been informed to follow-up with his talent acquisition partner for INR testing until he is therapeutic with his warfarin. Patient voiced understanding and agreement with plan.
--- NOTE | 2017-11-22 07:14 | PCM.DC.THR ---
Discharge Diet: No Restrictions Discharge Activity: May Not Drive - while taking narcotic pain medications. May shower in (days): 1 - Turned dressing away from water Ice area for (Minutes): 20 - Every 1-2 hours while awake Weight Bearing Status: Weight bearing as tolerated Additional Activity Instructions:: Wear elastic stockings for 2 weeks. DO NOT use alcohol with narcotic pain medication. DO NOT make important decisions while taking narcotic medication. If you have problems with taking your medication (rash, itching, nausea, etc.) call the office at once. Call your doctor if your incision/area has: Increased Pain/ Swelling, Increased Redness, Foul Smelling Discharge Call your doctor if you observe: Fever of 101 or Higher Remove Dressing in (days):: 4 - Okay to remove dressing on November 26, 2017 Additional Instructions: Follow [facility] postop instructions Allergies/Adverse Reactions: Allergies No Known Allergies Allergy (Verified 11/06/17 10:03) Medications to take at Discharge Aspirin E.C. [Ecotrin] 81 mg PO DAILY@0800 11/06/17 Colesevelam Hydrochloride [Welchol] 1,250 mg PO DAILY 11/06/17 Esomeprazole Mag Trihydrate [Nexium] 20 mg PO PRN PRN 11/06/17 Flecainide [Tambocor] 100 mg PO BID 11/06/17 Metoprolol Succinate [Toprol Xl] 50 mg PO QHS 11/06/17 Valsartan 40 mg PO LUNCH 11/06/17 Warfarin Sodium [Coumadin] 4 mg PO SUMOSA 11/06/17 Warfarin Sodium [Coumadin] 6 mg PO TUWETHFR 11/06/17 Acetaminophen [Tylenol] 1,000 mg PO Q8 #90 tab 11/22/17 Oxycodone [Oxyir] 5 - 10 mg PO Q4H PRN PRN 7 Days #80 tab 11/22/17 The following prescriptions were given: Oxycodone [Oxyir] 5 - 10 mg PO Q4H PRN PRN 7 Days #80 tab PRN Reason: Mod-Severe Pain (-05/23) Acetaminophen [Tylenol] 1,000 mg PO Q8 #90 tab Primary Care Physician: Dandre Lopez MD [Primary Care Provider] - Please Follow Up With: [facility] therapy When: 11/27/17 @ 10:00 with Julio Please Follow Up With: Magdaleno Spicer PA-C When: 12/04/17 @ 10:00 am
[2017-11-22 07:46] VITALS: BP 115/72; PULSE 84; RESP 16; TEMP 36.4; O2SAT 96
[2017-11-22] MEDS: Aspirin E.C. 81 MG Tablet PO (08:02)
[2017-11-22] MEDS: Flecainide 100 MG Tablet PO ×2 (08:02→22:01)
[2017-11-22] MEDS: Famotidine 20 MG Tablet PO (08:02)
[2017-11-22] MEDS: Senna/Docusate Sodium 1 Tablet 2 TABLET PO (08:02)
--- NOTE | 2017-11-22 11:12 | CASEMGMT ---
FÁTIMA ORDONEZ Face to Face with patient for initial transition planning/care coordination assessment. FÁTIMA ORDONEZ introduced self and role at [facility]. Patient sitting in chair, alert and oriented, at bedside. Patient willing to participate in assessment and is able to answer all questions appropriately. Care providers, pharmacy, and demographics verified. Patient lives with house with 1st floor setup. DME consist of shower chair, raised toilet seat, FWW. Patient wishes to discharge home and would like outpatient therapy changed from [facility] to [facility]. FÁTIMA ORDONEZ called [facility] and requested script be sent to [facility]. Patient states he has no further needs or concerns at this time. CM to follow for discharge planning needs that may arise. Disposition Plan: Patient to discharge home with outpatient therapy, family support, and follow-up plans in place.
[2017-11-22] MEDS: VALSARTAN 40 MG TABLET PO (11:16)
--- NOTE | 2017-11-22 11:41 | NURSING ---
Call placed to [facility], around 10am today, per retail shift leader nurse pt began getting confused in the middle of the night so she removed scop patch. Pt remains confused this morning and per therapy when they where talking with pt about his living situation pt states he lives in in 2 story house and sleeps on the third floor. states this was not the only question pt answered wrong and that he is not acting like him self. Told Ari scop patch was removed and he stated to try and avoid narcotics and to talk with hospitalist when they round on pt.
--- NOTE | 2017-11-22 12:44 | PCM.PROGNOTE ---
Subjective: Patient is a 62-year-old male with a past medical history of osteoarthritis, paroxysmal atrial fibrillation on Tambocor, GERD and hyperlipidemia who had a right total hip replacement yesterday done by Dr. Fernandez. The hospitalist service was consulted for management of his chronic medical problems. He is afebrile. Vital signs are stable. He is 94-97% saturated on room air. Per nursing he has been confused since last night and he is very tired. The scopolamine patch has been removed. Per the hospitalist note from yesterday he aspirated a Jane Doone in recovery yesterday. All lab was personally reviewed. The white blood cell count today is 12.7 and the hemoglobin has dropped to 10.4. BMP is unremarkable. He is c/o 2/10 pain in the R hip and thigh while sitting and a 7 or 8 with weight bearing. He does not usually take meds other than Tylenol for pain. He is also c/o burning in his thigh. Has not been sleeping well lately, too much on my mind. He denies CP, patient's, shortness of breath, cough. - Physical Exam General: Alert, Cooperative, No apparent distress - while sitting in a chair. He is oriented to person, year, month. Told me initially he was in the [facility] but then later knew he was in [facility]. HEENT: Atraumatic, PERRLA, EOMI, Normocephalic Oral: Dry Mucosa Neck: Supple, No Nodes, Trachea Midline Lungs: Clear to auscultation Cardiovascular: Regular rate, Regular Rhythm, Normal S1, Normal S2, No Ectopic Activity, No Gallop Abdomen: Bowel Sounds Present, Soft, Non Tender, Non-Distended Extremities: No clubbing, No cyanosis Skin: No rashes Neurological: Cranial nerves II-XII grossly intact, Neuro grossly intact Psych/Mental Status: Normal Affect Vital Signs Temp Pulse Resp BP Pulse Ox 97.5 F L 84 16 115/72 96 11/22/17 07:46 11/22/17 07:46 11/22/17 07:46 11/22/17 07:46 11/22/17 07:46 Oxygen Delivery Method Room Air Weight: 175 lb Body Mass Index (BMI) 25.8 Intake and Output for Last 24 Hours 11/20/17 11/21/17 11/22/17 23:59 23:59 23:59 Intake Total 2570 / 2570 2232 / 2232 Output Total 1450 / 1450 Balance 2570 / 2570 782 / 782 Laboratory Tests Past 24 Hrs 11/21/17 11/22/17 11/22/17 11:14 06:08 06:08 WBC 12.7 H RBC 3.17 L Hgb 10.4 L Hct 31.5 L MCV 99.4 H MCH 32.8 H MCHC 33.0 RDW 11.9 RDW Differential 41.7 Plt Count 230 MPV 9.3 POC PT 12.7 PT INR 1.10 Sodium 139 Potassium 3.8 Chloride 106 Carbon Dioxide 25.0 Anion Gap 8 BUN 12 Creatinine 1.06 Estim Creat Clear Calc 71.33 Est GFR (MDRD) Af Amer 91 Est GFR (MDRD) Non-Af 75 BUN/Creatinine Ratio 11.3 Glucose 132 H Calcium 8.2 L 11/22/17 06:08 WBC RBC Hgb Hct MCV MCH MCHC RDW RDW Differential Plt Count MPV POC PT PT 14.5 INR 1.1 Sodium Potassium Chloride Carbon Dioxide Anion Gap BUN Creatinine Estim Creat Clear Calc Est GFR (MDRD) Af Amer Est GFR (MDRD) Non-Af BUN/Creatinine Ratio Glucose Calcium Medical Necessity - Tobacco Use Smoking Status: Never smoker Assessment/Plan Impressions 1. Postop day #1-status post right total hip replacement 2. Altered mental status-likely secondary to scopolamine and narcotics. He is improving since the scopolamine patch was removed 3. Paroxysmal atrial fibrillation-on Tambocor 4. Osteoarthritis 5. Hypertension-adequately controlled 6. dry MM with an increase in Creat 7. Chronic anticoagulation with warfarin 8. insomnia due to anxiety and can't turn his brain off Started on 1 g of Tylenol every [address] Fernandez. Continue metoprolol, flecainide, daily baby aspirin, valsartan. Coumadin restarted by Dr. Fernandez Continue morphine and oxycodone for now. If the confusion does not completely resolve with discontinuation of scopolamine will need to adjust pain medications and obtain a CT brain. Recheck BMP, CBC and PT/INR in a.m. trazodone at [facility] for insomnia Discontinue Phenergan as it also can cause confusion. Continue Zofran as needed nausea/vomiting 2 liter of 0.45% NS now and then DC. Code Visit Inpatient E&M: 29367 Subs Hosp L2
[2017-11-22 14:43] VITALS: BP 105/70; PULSE 81; RESP 16; TEMP 37.1; O2SAT 100
[2017-11-22] MEDS: Acetaminophen 500 MG Tablet 1000 MG PO ×2 (14:47→22:00)
[2017-11-22] MEDS: 0.45% Normal Saline 1,000 ML 125 ML IV ×2 (14:48→22:01)
--- NOTE | 2017-11-22 17:39 | MDS.RN ---
Call placed to Dr. Fernandez, notifed that right hip has extensive bruising/ hard/ warm to touch. stated he would access pt in the morning, and to hold coumadin for tonight
[2017-11-22 20:26] VITALS: BP 138/70; PULSE 73; RESP 16; TEMP 37; O2SAT 96
[2017-11-22 21:59] VITALS: BP 120/68; PULSE 83
[2017-11-22] MEDS: Metoprolol(XL)Succ 50 MG Tablet PO (21:59)
[2017-11-23 02:32] VITALS: BP 137/66; PULSE 76; RESP 16; TEMP 36.9; O2SAT 95
[2017-11-23] MEDS: Acetaminophen 500 MG Tablet 1000 MG PO ×2 (05:22→13:59)
--- NOTE | 2017-11-23 06:14 | PCM.PN.ORT ---
Subjective: Patient doing well today. Did have some confusion yesterday afternoon we have been holding oxycodone patient currently complains of 2 out of 10 pain with rest and sitting, 7 out of 10 pain with weightbearing which is consistent with yesterday. He also has some anterior thigh burning. Developed some ecchymosis of his thigh and swelling last evening. Patient feels confusion has resolved at this time. Scopolamine patch and Phenergan were discontinued. No chest pain or shortness of breath. Objective: Postoperative right x-rays reveal status post right total hip replacement no fractures are noted. - Physical Exam General: Alert, Oriented x3, Cooperative Extremities: - - Right lower extremity: Dressing has area of stable outlined saturation which is dry and intact Patient has moderate swelling with soft his upper thigh and ecchymosis around superior lateral thigh. Sensations intact to light touch saphenous, sural, superficial peroneal, deep peroneal, and tibial distributions Motors intact EHL, DF, PF calves are soft and supple Vital Signs Temp Pulse Resp BP Pulse Ox 98.5 F 76 16 137/66 H 95 11/23/17 02:32 11/23/17 02:32 11/23/17 02:32 11/23/17 02:32 11/23/17 02:32 Oxygen Delivery Method Room Air Weight: 175 lb Body Mass Index (BMI) 25.8 Intake and Output for Last 24 Hours 11/21/17 11/22/17 11/23/17 23:59 23:59 23:59 Intake Total 2570 / 2570 2943 / 2943 1893 / 1893 Output Total 1450 / 1450 200 / 200 Balance 2570 / 2570 1493 / 1493 1693 / 1693 Laboratory Tests Past 24 Hrs 11/22/17 11/22/17 11/22/17 06:08 06:08 06:08 WBC 12.7 H RBC 3.17 L Hgb 10.4 L Hct 31.5 L MCV 99.4 H MCH 32.8 H MCHC 33.0 RDW 11.9 RDW Differential 41.7 Plt Count 230 MPV 9.3 PT 14.5 INR 1.1 Sodium 139 Potassium 3.8 Chloride 106 Carbon Dioxide 25.0 Anion Gap 8 BUN 12 Creatinine 1.06 Estim Creat Clear Calc 71.33 Est GFR (MDRD) Af Amer 91 Est GFR (MDRD) Non-Af 75 BUN/Creatinine Ratio 11.3 Glucose 132 H Calcium 8.2 L Medical Necessity - Tobacco Use Smoking Status: Never smoker Assessment/Plan Postop day 2 right total hip replacement 1. Pain control: We will discontinue oxycodone and start Ultram today 2. DVT prophylaxis: Patient is on chronic Coumadin will hold Coumadin this morning and if stable will restart upon discharge this afternoon 3. Physical therapy: Weight-bear as tolerated activity as tolerated 4. Ecchymosis: Hold Coumadin this morning recheck INR and if thigh is stable restart upon discharge 5. Disposition: Plan for discharge later today if thigh stable. [facility] Office:
[2017-11-23 07:40] LABS: Hematocrit 29.1 % (40-54); Hemoglobin 9.6 g/dl (13.0-16.5); Mean Corpuscular Hgb 33.2 pg (27.0-32.0); Mean Corpuscular Volume 100.7 fL (80-94); Mean Platelet Vol. 9.7 fl (6.2-12.0); Platelet Count 187 K/mm3 (150-450); RBC Distribution Width CV 12.1 % (11.6-14.6); RBC Distribution Width SD 42.8 fl (35.1-43.9); Red Blood Count 2.89 M/mm3 (4.6-6.2)
[2017-11-23 07:48] LABS: Scan Indicated on CBC? Y/N NO
[2017-11-23 07:59] LABS: Anion Gap 8 (5-15); BUN 8 mg/dL (7-18); BUN/Creat Ratio 10.3 RATIO (10-20); Calcium,Total 7.8 mg/dL (8.5-10.1); Chloride 110 mmol/L (98-107); Creatinine, Serum 0.78 mg/dL (0.70-1.30); EST Glomerular Filtration Rate 107 mL/min (>60); Est Glom Filt Rate - Afr Amer 130 mL/min (>60); Estimated Creatinine Clearance 96.94 ml/min; Glucose 90 mg/dL (74-106); Potassium 3.4 mmol/L (3.5-5.1); Sodium Level 143 mmol/L (136-145)
[2017-11-23] MEDS: traMADol 50 MG Tablet PO (08:12)
[2017-11-23] MEDS: Aspirin E.C. 81 MG Tablet PO (08:13)
[2017-11-23] MEDS: Famotidine 20 MG Tablet PO (08:13)
[2017-11-23] MEDS: Flecainide 100 MG Tablet PO (08:13)
[2017-11-23 08:14] VITALS: BP 117/69; PULSE 74; RESP 18; TEMP 37.2; O2SAT 99
--- NOTE | 2017-11-23 11:08 | CASEMGMT ---
FÁTIMA ORDONEZ confirmed with [facility] that they received script from [facility] for outpatient therapy. FÁTIMA ORDONEZ updated patient that [facility] received script for outpatient therapy and encouraged patient to call [facility] to schedule therapy appt for Monday or Monday. FÁTIMA ORDONEZ provided patient with number to [facility]. FÁTIMA ORDONEZ offered to schedule appt but patient states that he could schedule appt. FÁTIMA ORDONEZ will continue to follow this patient and plan for a safe discharge.
[2017-11-23] MEDS: VALSARTAN 40 MG TABLET PO (11:28)
[2017-11-23] MEDS: Gabapentin 100 MG Capsule 200 MG PO (13:59)
[2017-11-23 14:05] VITALS: BP 110/72; PULSE 74; RESP 18; TEMP 37; O2SAT 98
--- NOTE | 2017-11-23 16:14 | PCM.DC ---
You will use the following diet at home:: No restrictions Your food should be the consistency of: Regular Your liquids should be the consistency of: Regular/Thin Discharge Activity: May Not Drive - while taking narcotic pain medications. May shower in (days): 1 - Turned dressing away from water Ice area for (Minutes): 20 - Every 1-2 hours while awake Weight Bearing Status: Weight bearing as tolerated Additional Activity Instructions:: Wear elastic stockings for 2 weeks. DO NOT use alcohol with narcotic pain medication. DO NOT make important decisions while taking narcotic medication. If you have problems with taking your medication (rash, itching, nausea, etc.) call the office at once. Call your doctor if your incision/area has: Increased Pain/ Swelling, Increased Redness, Foul Smelling Discharge Call your doctor if you observe: Fever of 101 or Higher, Inability to urinate, Inability to have a bowel movement, Shortness of breath, Dizziness, Fainting spells, Swelling in the ankles, Chest pain, Uncontrolled pain Remove Dressing in (days):: 4 - Okay to remove dressing on November 26, 2017 Instructions: Understanding Sciatica, Gabapentin Oral tablet Additional Instructions: Gabapentin can make you sleepy. You are on a low dose but, it is controlling the burning....you get used to it in a few days and the tiredness generally goes away. If the burning continues for longer than 2-3 weeks talk to your PCP about getting a CT scan or MRI of your back. Take 2 capsules in the morning and 2 capsules at about 2-3 in the afternoon and then 2 capsules at bedtime. You will need to get the INR checked in 3 days. Pending Tests on Discharge: none Allergies/Adverse Reactions: Allergies No Known Allergies Allergy (Verified 11/06/17 10:03) Medications to take at Discharge Aspirin E.C. [Ecotrin] 81 mg PO DAILY@0800 11/06/17 Colesevelam Hydrochloride [Welchol] 1,250 mg PO DAILY 11/06/17 Esomeprazole Mag Trihydrate [Nexium] 20 mg PO PRN PRN 11/06/17 Flecainide [Tambocor] 100 mg PO BID 11/06/17 Metoprolol Succinate [Toprol Xl] 50 mg PO QHS 11/06/17 Valsartan 40 mg PO LUNCH 11/06/17 Warfarin Sodium [Coumadin] 4 mg PO SUMOSA 11/06/17 Warfarin Sodium [Coumadin] 6 mg PO TUWETHFR 11/06/17 Acetaminophen [Tylenol] 1,000 mg PO Q8 #90 tab 11/22/17 Gabapentin [Neurontin] 200 mg PO TIDCM #100 cap 11/23/17 Senna/Docusate Sodium [Senokot-S] 2 tablet PO BID tablet 11/23/17 traMADol [Ultram] 50 - 100 mg PO Q6H PRN PRN 7 Days #60 tablet 11/23/17 The following prescriptions were given: traMADol [Ultram] 50 - 100 mg PO Q6H PRN PRN 7 Days #60 tablet PRN Reason: Pain Acetaminophen [Tylenol] 1,000 mg PO Q8 #90 tab Gabapentin [Neurontin] 200 mg PO TIDCM #100 cap Primary Care Physician: Dandre Lopez MD [Primary Care Provider] - Please follow up with your Primary Care Physician in: as needed. Please Follow Up With: [facility] When: 11/27/17 @ 10:00 with Julio Please Follow Up With: Magdaleno Spicer PA-C When: 12/04/17 @ 10:00 am Proposed Discharge Date: 11/23/17
--- NOTE | 2017-11-23 16:32 | PCM.PROGNOTE ---
Patient Problems: Active and Suspected Problems Acute blood loss anemia (Acute) Hypokalemia (Acute) Toxic encephalopathy (Acute) Status post total hip replacement, right (Acute) Subjective: Afebrile, vital signs stable, 98-99% saturated on room air. White blood cell count today is normal. Hemoglobin is 9.6, down from 14.6 at admission. Platelets are within normal limits. Potassium is mildly decreased at 3.4 and the supplement was ordered. He still reports that has severe burning pain in the anterior right thigh. This pain significantly increases with any weightbearing. He was not even able to ambulate to the door of his room without stopping. Denies any back pain. Objective: - Physical Exam General: Alert, Cooperative, No apparent distress - while sitting in a chair. He is alert and oriented X 3 today and back to his baseline. HEENT: Atraumatic, PERRLA, EOMI, Normocephalic Oral: Dry Mucosa Neck: Supple, No Nodes, Trachea Midline Lungs: Clear to auscultation Cardiovascular: Regular rate, Regular Rhythm, Normal S1, Normal S2, No Ectopic Activity, No Gallop Abdomen: Bowel Sounds Present, Soft, Non Tender, Non-Distended Extremities: No clubbing, No cyanosis Skin: No rashes Neurological: Cranial nerves II-XII grossly intact, Neuro grossly intact Psych/Mental Status: Normal Affect - Physical Exam Vital Signs Temp Pulse Resp BP Pulse Ox 98.6 F 74 18 110/72 98 11/23/17 14:05 11/23/17 14:05 11/23/17 14:05 11/23/17 14:05 11/23/17 14:05 Oxygen Delivery Method Room Air Weight: 175 lb Body Mass Index (BMI) 25.8 Intake and Output for Last 24 Hours 11/21/17 11/22/17 11/23/17 23:59 23:59 23:59 Intake Total 2570 / 2570 2943 / 2943 1893 / 1893 Output Total 1450 / 1450 200 / 200 Balance 2570 / 2570 1493 / 1493 1693 / 1693 Laboratory Tests Past 24 Hrs 11/23/17 11/23/17 06:05 06:05 WBC 7.0 RBC 2.89 L Hgb 9.6 L Hct 29.1 L MCV 100.7 H MCH 33.2 H MCHC 33.0 RDW 12.1 RDW Differential 42.8 Plt Count 187 MPV 9.7 Sodium 143 Potassium 3.4 L Chloride 110 H Carbon Dioxide 25.0 Anion Gap 8 BUN 8 Creatinine 0.78 Estim Creat Clear Calc 96.94 Est GFR (MDRD) Af Amer 130 Est GFR (MDRD) Non-Af 107 BUN/Creatinine Ratio 10.3 Glucose 90 Calcium 7.8 L Medical Necessity - Tobacco Use Smoking Status: Never smoker Assessment/Plan Active and Suspected Problems Acute blood loss anemia (Acute) Hypokalemia (Acute) Toxic encephalopathy (Acute) Status post total hip replacement, right (Acute) Impressions 1. Postop day #2-status post right total hip replacement 2. Toxic encephalopathy/altered mental status-secondary to the combined effects of narcotics and scopolamine 3. Paroxysmal atrial fibrillation-on Tambocor -in normal sinus rhythm since admission 4. Osteoarthritis 5. Hypertension-adequately controlled 6. dry MM with an increase in Creat - resolved with hydration 7. Chronic anticoagulation with warfarin 8. insomnia due to anxiety and can't turn his brain off 9. radicular pain R thigh. 10. Hypokalemia He was given 200 mg of Gabapentin and the pain improved significantly. He was able to ambulate to the door of his room and into the [place] and around the loop without stopping. He now tells me that he can feel the soreness in his lateral thigh from the incision ......prior to Gabapentin it was masked by the burning pain. Will DC with a RX for Neurontin 200 mg TID. If the pain persists for longer than a week or 2 would consider imaging his low back.
== END 2017-11-23 16:56 | disposition home or self-care (01) | DRG 469 ==
PROVIDERS: Physician Assistant; Admitting Provider Specialist; Family Provider Family Medicine; PCP Family Medicine; Visit Provider Internal Medicine
PROC: 0SR902A Replacement of Right Hip Joint with Metal on Polyethylene Synthetic Substitute, Uncemented, Open Approach (ICD-10-PCS; CPT 27284; principal; 2017-11-21 12:35)
DX: M16.11 Unilateral primary osteoarthritis, right hip (principal); G92 Toxic encephalopathy; D62 Acute posthemorrhagic anemia; I42.9 Cardiomyopathy, unspecified; T44.3X5A Adverse effect of other parasympatholytics [anticholinergics and antimuscarinics] and spasmolytics, initial encounter; I48.0 Paroxysmal atrial fibrillation; I10 Essential (primary) hypertension; E87.6 Hypokalemia; K21.9 Gastro-esophageal reflux disease without esophagitis; E78.5 Hyperlipidemia, unspecified; M10.9 Gout, unspecified; Z79.01 Long term (current) use of anticoagulants; Z85.828 Personal history of other malignant neoplasm of skin; Y92.239 Unspecified place in hospital as the place of occurrence of the external cause; Z79.82 Long term (current) use of aspirin
CPT/HCPCS: 36415; 36416; 73501; 73502; 76000; 80048; 85025; 85027; 85610; 87077; 87081; 97110; 97116; 97162; 97165; 97530; 99251; J7120; A4216; G0463

== ENCOUNTER 2017-12-08 10:47 | Outpatient (RCR) | payer BC, SELFPAY ==
[2017-11-30 10:14] LABS: International Normalized Ratio 1.3; Prothrombin Time (Protime)PT. 15.9 SECONDS (11.7-14.9)
[2017-12-08 11:43] LABS: International Normalized Ratio 1.8; Prothrombin Time (Protime)PT. 20.9 SECONDS (11.7-14.9)
== END 2017-12-08 11:00 | disposition home or self-care (01) ==
LOC: LAB 10:47
PROVIDERS: Family Provider Family Medicine; PCP Family Medicine; Visit Provider Internal Medicine Cardiovascular Disease
DX: I48.0 Paroxysmal atrial fibrillation (principal)
CPT/HCPCS: 36415; 85610

== ENCOUNTER 2018-01-12 08:42 | Outpatient (RCR) | payer BC, SELFPAY ==
[2018-01-12 10:34] LABS: Prothrombin Time (Protime)PT. 39.8 SECONDS (11.7-14.9)
[2018-01-12 11:16] LABS: International Normalized Ratio 4.1
== END 2018-01-12 09:00 | disposition home or self-care (01) ==
LOC: LAB 08:42
PROVIDERS: Family Provider Family Medicine; PCP Family Medicine; Visit Provider Internal Medicine Cardiovascular Disease
DX: I48.0 Paroxysmal atrial fibrillation (principal)
CPT/HCPCS: 36415; 85610

== ENCOUNTER 2018-01-25 10:00 | Outpatient (RCR) | payer BC, SELFPAY ==
--- NOTE | 2017-11-28 11:10 | HP.PTEVAL_ITS ---
Patient's Visit Information SHARRON WILHELM is a 62 year old M referred to Physical Therapy by FRANK Gaytan with a diagnosis of R JOSELUIS. Date of Evaluation: 11/28/17 Physical Therapist: Devonte Whyte PT, - Visit Plan Frequency: 2-3x /Week Duration: 4-6 Weeks Plan: Anterior hip JOSELUIS protocal consisting of R LE stretching and strengthening , balance and proprio, core strengthening - Subjective Subjective: DOS: 11/21/17. Pt had a R JOSELUIS. Pt reports having R hip pain for over one year. Pt reports he was limping badly until having the surgery. Pt reports he is doing better since having the surgery. Pt reports he ;has pain, but it is a different pain than before. Pt reports his R thigh is still numb. Pt reports he ambulated with a cane PRN prior to surgery, but notes now he is ready to ambulate with no AD. Pt reports no sleep diff secondary to pain. Pt has steps to his basement, but has not attempted to negotiate them yet. 2/10 at rest, 8/ 10 at worst (walking) - Pain R hip pain Pain Intensity (Out of 10): 2 Pain Intensity Range: 8 - Objective Neuro: B LE sensation is WNL to light touch. B patellar tendon reflex= 2/3. MMT : R hip is grossly 3/5. All other B LE MMT= 5/5 throughout. ROM: Pt is moderately limited with R hip flexion and abduction . all other ROM is WNL. Gait: Pt ambulates with the use of walker. Slow cadance. Minor inversion of r foot during gait. Pt is able to ambulate 140' until needing a rest secondary to fatigue - Goals Goal 1:: Decrease R hip pain x 50% to aid with ambulation Goal Time Frame: 4-6 Weeks Goal 2:: Pt will be able to ambulate greater than 1000 feet to aid with community ambulation Goal Time Frame: 4-6 Weeks Goal 3:: Increase R LE strength x 1 grade to aid with stair negotiation Goal Time Frame: 4-6 Weeks Goal 4:: I with HEP Goal Time Frame: 4-6 Weeks - Rehabilitation Potential Physical Therapy Diagnosis: R hip pain, weakness, and limited ability to ambulate secondary to R JOSELUIS Rehabilitation Potential: Good - Anticipated Interventions Thank you for the opportunity to evaluate your patient. For Medicare and Medicare HMO plans, please review the plan of care and approve it. It will need to be FAXED BACK to us at [phone] for Medicare purposes. Please let me know if there are questions or concerns regarding this plan of care. Physician Signature: Date:
--- NOTE | 2018-01-25 11:10 | HP.PTDCSUM ---
HP - PT D/C Summary It has been my pleasure to treat SHARRON WILHELM under orders from FRANK Gaytan, for the diagnosis of R JOSELUIS for a total of 20 visit(s). Discharge Date: Please see the following information for a summary of their discharge status. - Subjective Subjective: Pt reports mild pain this date. - Pain R hip pain Pain Intensity (Out of 10): 1 - Overall Improvement % Improvement: 80 - Objective Objective/Function: MMT: R hip is now 5/5. Pt can ambulate over 1400' with no AD without limitation. pain is 1/10. Pt is I with HEP in gym setting. Rx goals achieved - Goals Goal 1:: Decrease R hip pain x 50% to aid with ambulation Goal Progress: Goal Met Goal 2:: Pt will be able to ambulate greater than 1000 feet to aid with community ambulation Goal Progress: Goal Met Goal 3:: Increase R LE strength x 1 grade to aid with stair negotiation Goal Progress: Goal Met Goal 4:: I with HEP Goal Progress: Goal Met - Plan Plan: Discharge - D/C Information If there are questions or concerns regarding this patient's physical therapy, please feel free to call me at [phone]. Thank you for the referral of this patient. Sincerely, Devonte Whyte, PT,
== END 2018-01-25 19:00 | disposition home or self-care (01) ==
LOC: PT 10:00
PROVIDERS: Family Provider Family Medicine; PCP Family Medicine; Visit Provider Physician Assistant Surgical
DX: M16.11 Unilateral primary osteoarthritis, right hip (principal)
CPT/HCPCS: 97110; 97161; 97530

== ENCOUNTER 2018-02-02 08:30 | Outpatient (RCR) | payer BC, SELFPAY ==
--- NOTE | 2018-01-18 10:30 | DT_ITS ---
This patient was seen during an EMR downtime January 15, 2018 - January 22, 2018. This patient may have a combination of paper and electronic documentation or all paper documentation. All documentation is viewable within the e-chart portion of [employer] for each patient visit.
[2018-01-23 04:29] LABS: International Normalized Ratio 1.5; Prothrombin Time (Protime)PT. 18.2 SECONDS (11.7-14.9)
[2018-02-02 09:31] LABS: International Normalized Ratio 2.3; Prothrombin Time (Protime)PT. 25.1 SECONDS (11.7-14.9)
== END 2018-02-02 09:00 | disposition home or self-care (01) ==
LOC: LAB 08:30
PROVIDERS: Family Provider Family Medicine; PCP Family Medicine; Visit Provider Internal Medicine Cardiovascular Disease
DX: I48.91 Unspecified atrial fibrillation (principal); Z79.01 Long term (current) use of anticoagulants
CPT/HCPCS: 36415; 85610

== ENCOUNTER 2018-04-19 08:24 | Outpatient (RCR) | payer BC, SELFPAY ==
[2018-04-19 09:58] LABS: International Normalized Ratio 3.1; Prothrombin Time (Protime)PT. 32.1 SECONDS (11.7-14.9)
== END 2018-04-19 10:00 | disposition home or self-care (01) ==
LOC: LAB 08:24
PROVIDERS: Family Provider Family Medicine; PCP Family Medicine; Visit Provider Internal Medicine Cardiovascular Disease
DX: I48.0 Paroxysmal atrial fibrillation (principal); Z79.01 Long term (current) use of anticoagulants
CPT/HCPCS: 36415; 85610

== ENCOUNTER 2018-05-25 08:58 | Outpatient (RCR) | payer BC, SELFPAY ==
[2018-05-25 09:33] LABS: International Normalized Ratio 1.9; Prothrombin Time (Protime)PT. 21.5 SECONDS (11.7-14.9)
== END 2018-05-25 10:00 | disposition home or self-care (01) ==
LOC: LAB 08:58
PROVIDERS: Family Provider Family Medicine; PCP Family Medicine; Referring Provider Internal Medicine Cardiovascular Disease; Visit Provider Internal Medicine Cardiovascular Disease
DX: I48.0 Paroxysmal atrial fibrillation (principal); Z79.01 Long term (current) use of anticoagulants
CPT/HCPCS: 36415; 85610

== ENCOUNTER 2018-07-04 08:44 | Outpatient (RCR) | payer BC, SELFPAY ==
[2018-06-22 11:11] LABS: International Normalized Ratio 1.2; Prothrombin Time (Protime)PT. 15.5 SECONDS (11.7-14.9)
[2018-07-04 10:04] LABS: International Normalized Ratio 2.1; Prothrombin Time (Protime)PT. 23.4 SECONDS (11.7-14.9)
== END 2018-07-13 10:30 | disposition home or self-care (01) ==
LOC: LAB 08:44
PROVIDERS: Family Provider Family Medicine; PCP Family Medicine; Referring Provider Internal Medicine Cardiovascular Disease; Visit Provider Internal Medicine Cardiovascular Disease
DX: I48.0 Paroxysmal atrial fibrillation (principal); Z79.01 Long term (current) use of anticoagulants
CPT/HCPCS: 36415; 85610

== ENCOUNTER 2018-07-27 08:52 | Outpatient (RCR) | payer BC, SELFPAY ==
[2018-04-20 09:12] VITALS: BMI 25.2
[2018-07-27 10:04] LABS: International Normalized Ratio 1.4; Prothrombin Time (Protime)PT. 17.2 SECONDS (11.7-14.9)
--- OUTSIDE RECORDS SUMMARY | 2018-09-11 22:00 | XMS RPT_ITS ---
:1955 Author Organization OHIP Support Name Relationship Address Phone MELONIE BOB Unavailable [address] + [place] [address] R Unavailable Unavailable Unavailable KOBILARCIK, BOB Unavailable [address] + [place] [address] R Unavailable Unavailable Unavailable KOBILARCIK, BOB Unavailable [address] + [place] [address] R Unavailable Unavailable Unavailable KOBILARCIK, BOB Unavailable [address] + [place] [address] R Unavailable Unavailable Unavailable KOBILARCIK, BOB Unavailable [address] + [place] [address] R Unavailable Unavailable Unavailable KOBILARCIK, BOB Unavailable [address] + [place] [address] R Unavailable Unavailable Unavailable KOBILARCIK, BOB Unavailable [address] + [place] [address] R Unavailable Unavailable Unavailable KOBILARCIK, BOB Unavailable [address] + [place] [address] R Unavailable Unavailable Unavailable KOBILARCIK, BOB Unavailable [address] + [place] [address] R Unavailable Unavailable Unavailable KOBILARCIK, BOB Unavailable [address] + [place] [address] R Unavailable Unavailable Unavailable KOBILARCIK, BOB Unavailable [address] + [place] [address] R Unavailable Unavailable Unavailable KOBILARCIK, BOB Unavailable [address] + [place] [address] R Unavailable Unavailable Unavailable KOBILARCIK, BOB Unavailable [address] + [place] [address] R Unavailable Unavailable Unavailable KOBILARCIK, BOB Unavailable [address] + [place] [address] R Unavailable Unavailable Unavailable KOBILARCIK, BOB Unavailable [address] + [place] [address] R Unavailable Unavailable Unavailable KOBILARCIK, BOB Unavailable [address] + [place] [address] R Unavailable Unavailable Unavailable KOBILARCIK, BBO Unavailable [address] + [place] [address] R Unavailable Unavailable Unavailable KOBILARCIK, BOB Unavailable [address] + [place] [address] R Unavailable Unavailable Unavailable KOBILARCIK, BOB Unavailable [address] + [place] [address] R Unavailable Unavailable Unavailable Care Team Providers Name Role Phone Roger Alvarado Attending Unavailable Roger Alvarado Referring Unavailable [facility] Nanette Primary Care Unavailable Roger Alvarado Attending Unavailable [facility] Unavailable Roger Alvarado Attending Unavailable Roger Alvarado Referring Unavailable [facility] Unavailable Jim, Lai Admitting Unavailable [facility] Unavailable Shawn Hernandez Consulting Unavailable SementiNeha Attending Unavailable Roof, Nanette H Attending Unavailable Roof, Nanette H Referring Unavailable [facility] Unavailable Jim, Lai Admitting Unavailable [facility] Unavailable Joppgwen, Shawn Consulting Unavailable Jopperi, Shawn Attending Unavailable Jim, Lai Consulting Unavailable Jim, Lai Admitting Unavailable Sementi, Neha Attending Unavailable [facility] Unavailable Mary, Shawn Consulting Unavailable Semenrubia, Neha Consulting Unavailable Magdaleno Spicer PA-C Attending Unavailable Magdaleno Spicer PA-C Referring Unavailable [facility] Unavailable Jim, Lai Admitting Unavailable Sementi, Neha Attending Unavailable [facility] Unavailable Mary, Shawn Consulting Unavailable Sementi, Neha Consulting Unavailable Judson Guzman Attending Unavailable Roof, Nanette H Referring Unavailable 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 Attending Unavailable Moodispaw, Roger Referring Unavailable Lopez, Nanette Primary Care Unavailable Moodispaw, Roger Attending Unavailable Moodispaw, Roger Referring Unavailable Lopez, Nanette Primary Care Unavailable Moodispaw, Roger Attending Unavailable Moodispaw, Roger Referring Unavailable Lopez, Nanette Primary Care Unavailable Moodispaw, Roger Attending Unavailable Lopez, Nanette Referring Unavailable Kim, Kayley Attending Unavailable Moodispaw, Roger Attending Unavailable Moodispaw, Roger Attending Unavailable Moodispaw, Roger Referring Unavailable Lopez, Nanette Primary Care Unavailable Moodispaw, Roger Attending Unavailable Moodispaw, Roger Referring Unavailable Lopez, Nanette Primary Care Unavailable Moodispaw, Roger Attending Unavailable Moodispaw, Roger Referring Unavailable Lopez, Nanette Primary Care Unavailable PROBLEMS PROBLEMS DATE TYPE CONDITION / CODE ATTENDING STATUS SOURCE 08/13/2018 Unknown I48.0 - Paroxysmal MoodhafsagerardoRoger guo Active [place] atrial fibrillation [facility] / I48.0(ICD-10) Hospital Repository 06/14/2018 Unknown Z79.01 - lobsterman MoodhafsagerardoRoger guo Active [place] (current) use of [facility] anticoagulants / Hospital Z79.01(ICD-10) Repository 04/20/2018 Unknown I10 - Essential Moodisgerardosari Roger Active [place] (primary) [facility] hypertension / Hospital I10(ICD-10) Repository 04/20/2018 Unknown E78.5 - Moodisgerardosari Roger Active [place] Hyperlipidemia, [facility] unspecified / Hospital E78.5(ICD-10) Repository 02/09/2018 Unknown I48.91 - Unspecified MoodisgerardosariRoger Active [place] atrial fibrillation Community / I48.91(ICD-10) Hospital Repository 01/31/2018 Unknown M16.11 - Unilateral Eshenaur, Active [place] primary [facility] right hip / Repository M16.11(ICD-10) 11/23/2017 Unknown G89.18 - Other acute Sementi, Active [place] postprocedural pain Neha [facility] / G89.18(ICD-10) Hospital Repository 11/22/2017 Unknown Z96.641 - Presence Sementi, Active [place] of right artificial Neha [facility] hip joint / Hospital Z96.641(ICD-10) Repository PROCEDURES PROCEDURES No Procedure Records FoundRESULTS RESULTS PROTHROMBIN TIME W/INR Collected: 08/31/2018 Status: F Source: [place] 9:[address] [facility] REPOSITORY TYPE CODE TESTS RESULT OUT OF RANGE REFERENCE UNITS LAB L300.4150 11.7-14.9 SECONDS High PROTIME 27.9 LAB L300.4200 Normal INR 2.6 Performed By: #### L300.3900 #### [facility] [address] [place], [place], [id number] (258) PROTHROMBIN TIME W/INR Collected: 07/27/2018 Status: F Source: [place] 8:[address] [facility] REPOSITORY TYPE CODE TESTS RESULT OUT OF RANGE REFERENCE UNITS LAB L300.4150 11.7-14.9 SECONDS High PROTIME 17.2 LAB L300.4200 Normal INR 1.4 Performed By: #### L300.3900 #### [facility] [address] [place], [place], [address] (930) PROTHROMBIN TIME W/INR Collected: 07/04/2018 Status: F Source: [place] 8:[address] [facility] REPOSITORY TYPE CODE TESTS RESULT OUT OF RANGE REFERENCE UNITS LAB L300.4150 11.7-14.9 SECONDS High PROTIME 23.4 LAB L300.4200 Normal INR 2.1 Performed By: #### L300.3900 #### [facility] [address] [place], [address] PROTHROMBIN TIME W/INR Collected: 06/22/2018 Status: F Source: [place] 9:[address] [facility] REPOSITORY TYPE CODE TESTS RESULT OUT OF RANGE REFERENCE UNITS LAB L300.4150 11.7-14.9 SECONDS High PROTIME 15.5 LAB L300.4200 Normal INR 1.2 Performed By: #### L300.3900 #### [facility] [address] [place], [address] PROTHROMBIN TIME W/INR Collected: 05/25/2018 Status: F Source: [place] 9:[address] [facility] REPOSITORY Order Comment: Comments: STANDING ORDER Comments: STANDING ORDER TYPE CODE TESTS RESULT OUT OF RANGE REFERENCE UNITS LAB L300.4150 11.7-14.9 SECONDS High PROTIME 21.5 LAB L300.4200 Normal INR 1.9 Performed By: #### L300.3900 #### [facility] [address] [place], [address] CARDIOLOGY VISIT Observed: 04/20/2018 Status: F Source: [place] REPORT 9:[address] [facility] REPOSITORY [facility] [address] [place] [address] OFFICE VISIT Date of Service: 04/20/18 MR#: [id number] Acct: [id number] Name: SHARRON WILHELM Rep #: [id number] : 1955 Provider: Roger Alvarado MD Age/Sex: 62/M Location: [facility] Status: Signed HPI HPI Details: SHARRON WILHELM, is a 62 M who presents to the office today for for outpatient cardiovascular follow-up of his history of underlying paroxysmal atrial fibrillation, non-CAD related cardiomyopathy, mitral valve prolapse, hyperlipidemia, and hypertension. Overall since his visit of 1 year ago he states he has been doing well. He has not had any acute cardiovascular concerns or issues. He has not required additional outpatient or inpatient cardiovascular evaluation. He remains on his medications. He has had no obvious complications. He had an ECG today. He remains in sinus rhythm. He has a left axis deviation with an incomplete right bundle branch block pattern and a left anterior fascicular block pattern as well as poor R-wave progression. In comparison to his ECG from 1 year ago there is no significant change Intake Vital Signs04/20/18 Height 5 ft 9 in 04/20/18 Weight: 171 lb 04/20/18 Body Mass Index (BMI) 25.2 04/20/18 Blood Pressure 118/62 Intake Visit Reasons: 1 Y FU Allergies oxycodone Adverse Reaction (Severe, Verified 04/20/18 09:12) Confused, disoriented scopolamine Adverse Reaction (Severe, Verified 04/20/18 09:12) Confused, disoriented Medications Aspirin E.C. [Ecotrin] 81 mg PO DAILY@0800 11/06/17 [History Confirmed 04/20/18] Esomeprazole Mag Trihydrate [Nexium] 20 mg PO PRN PRN 11/06/17 [History Confirmed 04/20/18] Valsartan 40 mg PO LUNCH 11/06/17 [History Confirmed 04/20/18] Warfarin Sodium [Coumadin] 6 mg PO TUWETHFR 11/06/17 [History Confirmed 04/20/18] flecainide 100 mg tablet 100 mg PO BID #180 tab 12/06/17 [Rx Confirmed 04/20/18] metoprolol succinate ER 50 mg tablet,extended release 24 hr 50 mg PO QHS #90 tab 12/06/17 [Rx Confirmed 04/20/18] colesevelam 625 mg tablet 1,250 mg PO DAILY #180 tab 12/26/17 [Rx Confirmed 04/20/18] warfarin 1 mg tablet 1 mg PO .COMPLEX #90 tab 01/02/18 [Rx Confirmed 04/20/18] warfarin 2 mg tablet 2 mg PO .COMPLEX #270 tab 01/11/18 [Rx Confirmed 04/20/18] warfarin 5 mg tablet 5 mg PO .COMPLEX #90 tab 03/13/18 [Rx Confirmed 04/20/18] acetaminophen 500 mg tablet 1,000 mg PO Q8 PRN tab 04/20/18 [History] [facility] Medical History Hyperlipidemia (Chronic) Hypertension (Chronic) Nonrheumatic mitral (valve) prolapse (Acute) Cardiomyopathy in other diseases classified elsewhere (Chronic) Acute blood loss anemia (Acute) Hypokalemia (Acute) Insomnia (Chronic) Toxic encephalopathy (Acute) Status post total hip replacement, right (Acute) Paroxysmal atrial fibrillation (Chronic) senior care (current) use of anticoagulants (Chronic) Mural thrombus of heart (Acute) DDD (degenerative disc disease) (Chronic) Surgical History History of arthroscopic knee surgery (Resolved) History of right hip replacement (Resolved) History of umbilical hernia repair (Resolved) Family History Father Atrial fibrillation Mother Cardiomyopathy Social History Smoking Status: Never smoker alcohol intake: former details: History of alcohol abuse ROS Const Const: Negative for fatigue, weakness, weight gain, weight loss, frequent falls or excessive sweating Eyes Eyes: Negative for change in vision, blurry vision or transient loss of vision ENT ENT: Negative for dizziness or balance problems Cardio Chest Pain: No Palpitations: No Edema: None Muscle aches with walking: None Resp Respiratory: Negative for SOB with activity or SOB at rest GI GI: Negative vomiting or vomiting blood/hematemesis : Negative for hematuria Musc Musc: Negative for balance problems, muscle aches/ myalgia, muscle weakness or joint pain Skin Skin: Negative non-healing lesions or rash Neuro Neuro: Negative for weakness, blurry vision, dizziness, lightheadedness, frequent falls or orthostatic symptoms Jaylan Hematologic/Lymphatic: Negative for easy bleeding Endo Endo: Negative for fatigue or excessive sweating Psych Psych: Negative for anxiety or depression Allergy Allergy/Immunology: Negative for hives, Negative for rash Cardiology Exam Const Appearance: cooperative, healthy appearing, comfortable, no acute distress, well developed and well groomed Nutritional Appearance: average body habitus Orientation: alert, awake and oriented x3 Head Head: normal to inspection, normocephalic and atraumatic Ears: hearing grossly normal bilaterally Nose: external nose normal Face and Sinus: face symmetric Mouth: oral mucosae normal Teeth and gingiva: fair dentition Eyes Eyelids: eyelids normal Conjunctivae: conjunctivae normal Pupils: PERRL EOM: EOM intact bilaterally Neck Neck: normal visual inspection and full ROM Carotids: normal carotid upstroke Chest Chest inspection: normal inspection of the chest and symmetric chest movement Auscultation: Bilateral: Clear to Auscultation Cardio Palpation: normal PMI Rate: regular rate Rhythm: regular rhythm Heart sounds: S1 normal and S2 normal GI GI: normal to inspection, bowel sounds present and soft Neuro General: awake, oriented x3, moves all extremities and alert Skin Skin: ecchymosis Extremities Pulses: Normal: Right Radial Pulse, Left Radial Pulse Lower Extremity Edema: None: Bilateral Psych Psychological: anxious Supplemental Info He had a transthoracic echocardiogram on 11/09/2017. Interpretation Summary Normal LV size. Moderate concentric left ventricular hypertrophy. Left ventricular systolic function is normal. The estimated ejection fraction is 60 %. Transmitral doppler flow suggestive of impaired relaxation of left ventricle He had a transesophageal echocardiogram on 06/19/2009. Interpretation Summary Transesophageal study with limited transthoracic views to reassess LV function for comparison. Mild concentric left ventricular hypertrophy. Moderately severe global left ventricular systoli.c dysfunction. The estimated ejection fraction is 30 %. Left ventricular function improved compared to study of 03/22/09 Normal right ventricle. Normal left atrium. There is no spontaneous contrast in the left. atrium. No thrombus is detected in the left atrial appendage. Left atrial appendage fibrillatory velocities approaching 70 cm/sec. Normal right atrium. There is no spontaneous contrast in the right atrium.. No thrombus. Mild mitral valve prolapse. No significant thickening. Mild (1+) mitral valve insufficiency. Trivial tricuspid valve insufficiency. Mild (1+) aortic valve insufficiency. Trivial pulmonic valve insufficiency. Assessment AND Plan 1. Paroxysmal atrial fibrillation I48.0 Plan At the present time he appears to be remaining in sinus rhythm. He will continue his current medical management and follow-up. Orders Orders: 2. Nonrheumatic mitral (valve) prolapse I34.1 Plan He has undergone noninvasive evaluation as noted above. There is no significant change based on history or examination. He will continue his current therapy and follow-up 3. Hyperlipidemia, unspecified hyperlipidemia type E78.5 Plan He does not recall when his last lipid lab was performed. The last one available for review was from 2014. He will be scheduled for future fasting lipid and hepatic profile peer Orders Orders: 4. Essential hypertension I10 Plan His blood pressure appears to be reasonably well-controlled. He will continue medical management and follow-up peer Orders Orders: 5. lobsterman current use of anticoagulant Z79.01 Plan He is on long-term oral anticoagulant. At the present time he wishes to remain on warfarin/Coumadin therapy. He will continue laboratory follow-up Plan Detail Additional Comments Thank you for allowing me to participate in the care of your patient. Please don't hesitate to call if any issues arise. This note was generated using a voice recognition system and there may be incorrect words, spelling or punctuation that were not noted when reviewing the office note prior to saving. Follow Up 1 Year (PFM) Coding Level of Care Code Off vis,est,level 4 Diagnoses Paroxysmal atrial fibrillation I48.0 Nonrheumatic mitral (valve) prolapse I34.1 Hyperlipidemia, unspecified hyperlipidemia type E78.5 Hyperlipidemia type: unspecified Essential hypertension I10 Hypertension type: essential hypertension lobsterman current use of anticoagulant Z79.01 Coding Level of Care Code Off vis,est,level 4 Diagnoses Paroxysmal atrial fibrillation I48.0 Nonrheumatic mitral (valve) prolapse I34.1 Hyperlipidemia, unspecified hyperlipidemia type E78.5 Hyperlipidemia type: unspecified Essential hypertension I10 Hypertension type: essential hypertension lobsterman current use of anticoagulant Z79.01 04/20/18 0951 <Electronically signed by Roger Alvarado MD> Date Roger Alvarado MD Cosigner Signature: Date (if applicable) CC: 12 LEAD EKG PERFORMED Observed: 04/20/2018 Status: F [place] [facility] [place] 9:[address] [facility] REPOSITORY [place] [id number] [place] [address] 12 Lead E[place] [facility] [place]/18916 MR#: [id number] Acct: [id number] Name: SHARRON WILHELM Rep #: [id number] : 1955 62 From: Roger Alvarado MD Attending Dr: Roger Alvarado MD Status: DEP AMB Ordering Dr: Roger Alvarado MD Date: 04/20/18 Location: [facility] Sex: M C [place] [facility] [place] [facility] [place] ECG Report Interpretation Sinus Rhythm Left axis deviationICRBBBLeft anterior fascicular blockPoor R wave progressionABNORMAL Electronically signed on 04/20/2018 at 11:43 by Roger Alvarado Software Version [id number] 04/20/18 1144 Date Roger Alvarado MD CC: Date Dictated: 04/20/18916 Date Transcribed: 04/20/18916 Customer Support Analyst: PM Signed PROTHROMBIN TIME W/INR Collected: 04/19/2018 Status: F Source: [place] 8:[address] [facility] REPOSITORY TYPE CODE TESTS RESULT OUT OF RANGE REFERENCE UNITS LAB L300.4150 11.7-14.9 SECONDS High PROTIME 32.1 LAB L300.4200 Normal INR 3.1 Performed By: #### L300.3900 #### [facility] [address] [place], [address] PROTHROMBIN TIME W/INR Collected: 02/02/2018 Status: F Source: [place] 8:[address] [facility] REPOSITORY TYPE CODE TESTS RESULT OUT OF RANGE REFERENCE UNITS LAB L300.4150 11.7-14.9 SECONDS High PROTIME 25.1 LAB L300.4200 Normal INR 2.3 Performed By: #### L300.3900 #### [facility] [address] [place], [address] DOWNTIME REPORT Observed: 02/01/2018 Status: F Source: [place] 1:07 PM [facility] Medical Records Department [address] [place] [address] Downtime Report MR#: [id number] Acct: [id number] Name: SHARRON WILHELM Rep #: [id number] : 1955 62 From: Willy Lopez PCP: Nanette Lopez MD Status: REG RCR This patient was seen during an EMR downtime January 15, 2018 - January 22, 2018. This patient may have a combination of paper and electronic documentation or all paper documentation. All documentation is viewable within the e-chart portion of [employer] for each patient visit. PT D/C SUMMARY (1) Observed: 01/25/2018 Status: F Source: [place] 11:10 AM [facility] [address] [place] [address] Fax REHABILITATION SERVICES DISCHARGE SUMMARY MR#: [id number] Acct: [id number] Name: SHARRON WILHELM Rep #: [id number] : 1955 62 From: Devonte Whyte PT, ATC Referring Dr.: Magdaleno MARIE Status: REG RCR Insurance: [employer] SELF PAY INSURANCE HP - PT D/C Summary It has been my pleasure to treat SHARRON WILHELM under orders from GERARDO Gaytan, for the diagnosis of R JOSELUIS for a total of 20 visit(s). Discharge Date: Please see the following information for a summary of their discharge status. - Subjective Subjective: Pt reports mild pain this date. - Pain R hip pain Pain Intensity (Out of 10): 1 - Overall Improvement % Improvement: 80 - Objective Objective/Function: MMT: R hip is now 5/5. Pt can ambulate over 1400' with no AD without limitation. pain is 1/10. Pt is I with HEP in gym setting. Rx goals achieved - Goals Goal 1:: Decrease R hip pain x 50% to aid with ambulation Goal Progress: Goal Met Goal 2:: Pt will be able to ambulate greater than 1000 feet to aid with community ambulation Goal Progress: Goal Met Goal 3:: Increase R LE strength x 1 grade to aid with stair negotiation Goal Progress: Goal Met Goal 4:: I with HEP Goal Progress: Goal Met - Plan Plan: Discharge - D/C Information If there are questions or concerns regarding this patient's physical therapy, please feel free to call me at [phone]. Thank you for the referral of this patient. Sincerely, Devonte Whyte, PT, <Electronically signed by Devonte Whyte PT, ATC> 01/25/18 1110 CC: Nanette Lopez MD; Magdaleno MARIE [facility] Signed PROTHROMBIN TIME W/INR Collected: 01/18/2018 Status: F Source: [place] 10:[address] [facility] REPOSITORY Order Comment: RESULT(S) PREVIOUSLY REPORTED ON MANUAL REQUISITION DURING DOWNTIME. TYPE CODE TESTS RESULT OUT OF RANGE REFERENCE UNITS LAB L300.4150 11.7-14.9 SECONDS High PROTIME 18.2 LAB L300.4200 Normal INR 1.5 Performed By: #### L300.3900 #### [place] [facility] [address] [place], [address] PROTHROMBIN TIME W/INR Collected: 01/12/2018 Status: F Source: [place] 8:[address] [facility] REPOSITORY TYPE CODE TESTS RESULT OUT OF REFERENCE UNITS RANGE LAB L300.4150 11.7-14.9 SECONDS High PROTIME 39.8 LAB L300.4200 High alert INR 4.1 Result Comment: CRITICAL VALUE VERIFIED. CALLED TO KAYLEY KIM 01/12/18 1116 Rosa S Davidjayy. RESULTS READ BACK BY SAME. Performed By: #### L300.3900 #### [facility] [address] [place], [address] PROTHROMBIN TIME W/INR Collected: 12/08/2017 Status: F Source: [place] 10:[address] [facility] REPOSITORY TYPE CODE TESTS RESULT OUT OF RANGE REFERENCE UNITS LAB L300.4150 11.7-14.9 SECONDS High PROTIME 20.9 LAB L300.4200 Normal INR 1.8 Performed By: #### L300.3900 #### [facility] [address] [place], [address] PROTHROMBIN TIME W/INR Collected: 11/30/2017 Status: F Source: [place] 9:[address] [facility] REPOSITORY TYPE CODE TESTS RESULT OUT OF RANGE REFERENCE UNITS LAB L300.4150 11.7-14.9 SECONDS High PROTIME 15.9 LAB L300.4200 Normal INR 1.3 Performed By: #### L300.3900 #### [facility] [address] [place], [address] INITAL EVALUATION (1) Observed: 11/28/2017 Status: F Source: [place] - PT 11:[address] [facility] REPOSITORY [facility] [address] [place], [place] [address] Fax REHABILITATION SERVICES INITIAL EVALUATION MR#: [id number] Acct: [id number] Name: SHARRON WILHELM Rep #: [id number] : 1955 62 From: Devonte Whyte PT, ATC Referring Dr.: Magdaleno MARIE Status: REG RCR Insurance: [employer] SELF PAY INSURANCE Patient's Visit Information SHARRON WILHELM is a 62 year old M referred to Physical Therapy by GERARDO Gaytan with a diagnosis of R JOSELUIS. Date of Evaluation: 11/28/17 Physical Therapist: Devonte Whyte PT, - Visit Plan Frequency: 2-3x /Week Duration: 4-6 Weeks Plan: Anterior hip JOSELUIS protocal consisting of R LE stretching and strengthening, balance and proprio, core strengthening - Subjective Subjective: DOS: 11/21/17. Pt had a R JOSELUIS. Pt reports having R hip pain for over one year. Pt reports he was limping badly until having the surgery. Pt reports he is doing better since having the surgery. Pt reports he ;has pain, but it is a different pain than before. Pt reports his R thigh is still numb. Pt reports he ambulated with a cane PRN prior to surgery, but notes now he is ready to ambulate with no AD. Pt reports no sleep diff secondary to pain. Pt has steps to his basement, but has not attempted to negotiate them yet. 2/10 at rest, 8/10 at worst (walking) - Pain R hip pain Pain Intensity (Out of 10): 2 Pain Intensity Range: 8 - Objective Neuro: B LE sensation is WNL to light touch. B patellar tendon reflex= 2/3. MMT: R hip is grossly 3/5. All other B LE MMT= 5/5 throughout. ROM: Pt is moderately limited with R hip flexion and abduction . all other ROM is WNL. Gait: Pt ambulates with the use of walker. Slow cadance. Minor inversion of r foot during gait. Pt is able to ambulate 140' until needing a rest secondary to fatigue - Goals Goal 1:: Decrease R hip pain x 50% to aid with ambulation Goal Time Frame: 4-6 Weeks Goal 2:: Pt will be able to ambulate greater than 1000 feet to aid with community ambulation Goal Time Frame: 4-6 Weeks Goal 3:: Increase R LE strength x 1 grade to aid with stair negotiation Goal Time Frame: 4-6 Weeks Goal 4:: I with HEP Goal Time Frame: 4-6 Weeks - Rehabilitation Potential Physical Therapy Diagnosis: R hip pain, weakness, and limited ability to ambulate secondary to R JOSELUIS Rehabilitation Potential: Good - Anticipated Interventions Thank you for the opportunity to evaluate your patient. For Medicare and Medicare HMO plans, please review the plan of care and approve it. It will need to be FAXED BACK to us at [phone] for Medicare purposes. Please let me know if there are questions or concerns regarding this plan of care. Physician Signature: Date: <Electronically signed by Devonte Whyte PT, ATC> 11/28/17 1110 CC: Nanette Lopez MD; Magdaleno MARIE [facility] Signed For Medicare only, by signing this I certify the plan of care. Physicians Signature Date DISCHARGE INSTRUCTION Observed: 11/23/2017 Status: F Source: MENASHA 4:[address] [facility] REPOSITORY [facility] Medical Records Department [address] [place] [address] Instructions for Home/Discharge Instructions 11/23/17 1614 MR#: [id number] Acct: [id number] Name: SHARRON WILHELM Rep #: [id number] : 1955 62 From: Maximo Alvarez DO PCP: Nanette Lopez MD Status: ADM IN You will use the following diet at home:: No restrictions Your food should be the consistency of: Regular Your liquids should be the consistency of: Regular/Thin Discharge Activity: May Not Drive - while taking narcotic pain medications. May shower in (days): 1 - Turned dressing away from water Ice area for (Minutes): 20 - Every 1-2 hours while awake Weight Bearing Status: Weight bearing as tolerated Additional Activity Instructions:: Wear elastic stockings for 2 weeks. DO NOT use alcohol with narcotic pain medication. DO NOT make important decisions while taking narcotic medication. If you have problems with taking your medication (rash, itching, nausea, etc.) call the office at once. Call your doctor if your incision/area has: Increased Pain/ Swelling, Increased Redness, Foul Smelling Discharge Call your doctor if you observe: Fever of 101 or Higher, Inability to urinate, Inability to have a bowel movement, Shortness of breath, Dizziness, Fainting spells, Swelling in the ankles, Chest pain, Uncontrolled pain Remove Dressing in (days):: 4 - Okay to remove dressing on November 26, 2017 Instructions: Understanding Sciatica, Gabapentin Oral tablet Additional Instructions: Gabapentin can make you sleepy. You are on a low dose but, it is controlling the burning....you get used to it in a few days and the tiredness generally goes away. If the burning continues for longer than 2-3 weeks talk to your PCP about getting a CT scan or MRI of your back. Take 2 capsules in the morning and 2 capsules at about 2-3 in the afternoon and then 2 capsules at bedtime. You will need to get the INR checked in 3 days. Pending Tests on Discharge: none Allergies/Adverse Reactions: Allergies No Known Allergies Allergy (Verified 11/06/17 10:03) Medications to take at Discharge Aspirin E.C. [Ecotrin] 81 mg PO DAILY@0800 11/06/17 Colesevelam Hydrochloride [Welchol] 1,250 mg PO DAILY 11/06/17 Esomeprazole Mag Trihydrate [Nexium] 20 mg PO PRN PRN 11/06/17 Flecainide [Tambocor] 100 mg PO BID 11/06/17 Metoprolol Succinate [Toprol Xl] 50 mg PO QHS 11/06/17 Valsartan 40 mg PO LUNCH 11/06/17 Warfarin Sodium [Coumadin] 4 mg PO SUMOSA 11/06/17 Warfarin Sodium [Coumadin] 6 mg PO TUWETHFR 11/06/17 Acetaminophen [Tylenol] 1,000 mg PO Q8 #90 tab 11/22/17 Gabapentin [Neurontin] 200 mg PO TIDCM #100 cap 11/23/17 Senna/Docusate Sodium [Senokot-S] 2 tablet PO BID tablet 11/23/17 traMADol [Ultram] 50 - 100 mg PO Q6H PRN PRN 7 Days #60 tablet 11/23/17 The following prescriptions were given: traMADol [Ultram] 50 - 100 mg PO Q6H PRN PRN 7 Days #60 tablet PRN Reason: Pain Acetaminophen [Tylenol] 1,000 mg PO Q8 #90 tab Gabapentin [Neurontin] 200 mg PO TIDCM #100 cap Primary Care Physician: Nanette Lopez MD [Primary Care Provider] - Please follow up with your Primary Care Physician in: as needed. Please Follow Up With: [facility] When: 11/27/17 @ 10:00 with Julio Please Follow Up With: Magdaleno Spicer PA-C When: 12/04/17 @ 10:00 am Proposed Discharge Date: 11/23/17 11/23/17 1629 <Electronically signed by Maximo Rubio Soledadrubia DO> Date Maximo Alvarez DO CC: Shawn Hernandez DO; Nanette Lopez MD; Lai Fernandez MD CBC-COMPLETE BLOOD CNT Collected: 11/23/2017 Status: F Source: [place] NO DIFF 6:[address] [facility] REPOSITORY TYPE CODE TESTS RESULT OUT OF RANGE REFERENCE UNITS LAB L100.1000 4.4-11.0 K/mm3 Normal WBC 7.0 LAB L100.1200 4.6-6.2 M/mm3 Low RBC 2.89 LAB L100.1300 13.0-16.5 g/dl Low HGB 9.6 LAB L100.1400 40-54 % Low HCT 29.1 LAB L100.1500 80-94 fL High MCV 100.7 LAB L100.1600 27.0-32.0 pg High MCH 33.2 LAB L100.1700 32-36 g/gl Normal MCHC 33.0 LAB L100.1810 11.6-14.6 % Normal RDW CV 12.1 LAB L100.1820 35.1-43.9 fl Normal RDW SD 42.8 LAB L100.1900 150-450 K/mm3 Normal PLT 187 LAB L100.2000 6.2-12.0 fl Normal MPV 9.7 Performed By: #### L100.0500 #### [facility] [address], [address] BASIC METABOLIC Collected: 11/23/2017 Status: F Source: [place] PROFILE (BMP) 6:[address] [facility] REPOSITORY TYPE CODE TESTS RESULT OUT OF RANGE REFERENCE UNITS LAB L501.0100 74-106 mg/dL Normal GLU 90 Result Comment: Please note revised GLUCOSE reference range effective 2017. LAB L501.1000 7-18 mg/dL Normal BUN 8 LAB L501.1100 0.70-1.30 mg/dL Normal CREAT,SERUM 0.78 Result Comment: The validity of the calculated GFR AND GFRAA in patients over 70 years has not been determined. Clinical correlation is essential. LAB L501.1110 >60 mL/min Normal EST GFR 107 Result Comment: Non- GFR Calc LAB L501.1115 >60 mL/min Normal EST GFR - AA 130 Result Comment: GFR Calc LAB L501.1255 ml/min Normal Estimated CRCL 96.94 LAB L501.1300 10-20 RATIO Normal BUN/CRE 10.3 LAB L501.2200 8.5-10 mg/dL Low .1 CA 7.8 LAB L501.5300 136-14 mmol/L Normal 5 NA 143 LAB L501.5600 3.5-5. mmol/L Low 1 K 3.4 LAB L501.5900 98-107 mmol/L High CL 110 LAB L501.6100 21.0-3 mmol/L Normal 2.0 CO2 25.0 LAB L501.6200 5-15 Normal GAP 8 Performed By: #### L500.2500 #### [facility] [address] [facility] [place], [address] DISCHARGE INSTRUCTION Observed: 11/22/2017 Status: F Source: [place] 7:[address] [facility] REPOSITORY [facility] Medical Records Department [address] [place] [address] Instructions for Home/Discharge Instructions 11/22/17 0714 MR#: [id number] Acct: [id number] Name: SHARRON WILHELM Rep #: [id number] : 1955 62 From: Magdaleno Spicer PA-C PCP: Nanette Lopez MD Status: ADM IN ADDENDUM by Magdaleno MARIE on 11/22/17 at 0716 Patient will follow up with his physical therapy technician with regards to his INR and warfarin treatment. Date Magdaleno Spicer PA-C cc: Shawn Hernandez DO; Nanette Lopez MD * Signed Discharge Diet: No Restrictions Discharge Activity: May Not Drive - while taking narcotic pain medications. May shower in (days): 1 - Turned dressing away from water Ice area for (Minutes): 20 - Every 1-2 hours while awake Weight Bearing Status: Weight bearing as tolerated Additional Activity Instructions:: Wear elastic stockings for 2 weeks. DO NOT use alcohol with narcotic pain medication. DO NOT make important decisions while taking narcotic medication. If you have problems with taking your medication (rash, itching, nausea, etc.) call the office at once. Call your doctor if your incision/area has: Increased Pain/ Swelling, Increased Redness, Foul Smelling Discharge Call your doctor if you observe: Fever of 101 or Higher Remove Dressing in (days):: 4 - Okay to remove dressing on November 26, 2017 Additional Instructions: Follow [facility] postop instructions Allergies/Adverse Reactions: Allergies No Known Allergies Allergy (Verified 11/06/17 10:03) Medications to take at Discharge Aspirin E.C. [Ecotrin] 81 mg PO DAILY@0800 11/06/17 Colesevelam Hydrochloride [Welchol] 1,250 mg PO DAILY 11/06/17 Esomeprazole Mag Trihydrate [Nexium] 20 mg PO PRN PRN 11/06/17 Flecainide [Tambocor] 100 mg PO BID 11/06/17 Metoprolol Succinate [Toprol Xl] 50 mg PO QHS 11/06/17 Valsartan 40 mg PO LUNCH 11/06/17 Warfarin Sodium [Coumadin] 4 mg PO SUMOSA 11/06/17 Warfarin Sodium [Coumadin] 6 mg PO TUWETHFR 11/06/17 Acetaminophen [Tylenol] 1,000 mg PO Q8 #90 tab 11/22/17 Oxycodone [Oxyir] 5 - 10 mg PO Q4H PRN PRN 7 Days #80 tab 11/22/17 The following prescriptions were given: Oxycodone [Oxyir] 5 - 10 mg PO Q4H PRN PRN 7 Days #80 tab PRN Reason: Mod-Severe Pain (-05/23) Acetaminophen [Tylenol] 1,000 mg PO Q8 #90 tab Primary Care Physician: Nanette Lopez MD [Primary Care Provider] - Please Follow Up With: [facility] When: 11/27/17 @ 10:00 with Julio Please Follow Up With: Magdaleno Spicer PA-C When: 12/04/17 @ 10:00 am 11/22/17 0715 <Electronically signed by Magdaleno Spicer PA-C> Date Magdaleno Spicer PA-C CC: Shawn Hernandez DO; Nanette Lopez MD CBC-COMPLETE BLOOD CNT Collected: 11/22/2017 Status: F Source: [place] NO DIFF 6:[address] [facility] REPOSITORY TYPE CODE TESTS RESULT OUT OF RANGE REFERENCE UNITS LAB L100.1000 4.4-11.0 K/mm3 High WBC 12.7 LAB L100.1200 4.6-6.2 M/mm3 Low RBC 3.17 LAB L100.1300 13.0-16.5 g/dl Low HGB 10.4 LAB L100.1400 40-54 % Low HCT 31.5 LAB L100.1500 80-94 fL High MCV 99.4 LAB L100.1600 27.0-32.0 pg High MCH 32.8 LAB L100.1700 32-36 g/gl Normal MCHC 33.0 LAB L100.1810 11.6-14.6 % Normal RDW CV 11.9 LAB L100.1820 35.1-43.9 fl Normal RDW SD 41.7 LAB L100.1900 150-450 K/mm3 Normal PLT 230 LAB L100.2000 6.2-12.0 fl Normal MPV 9.3 Performed By: #### L100.0500 #### [facility] [address], [address] BASIC METABOLIC Collected: 11/22/2017 Status: F Source: [place] PROFILE (BMP) 6:[address] [facility] REPOSITORY TYPE CODE TESTS RESULT OUT OF RANGE REFERENCE UNITS LAB L501.0100 74-106 mg/dL High GLU 132 Result Comment: Fasting Glucose result greater than or equal to 126 mg/dL suggests DIABETES MELLITUS per A.D.A. criteria. Please note revised GLUCOSE reference range effective 2017. LAB L501.1000 7-18 mg/dL Normal BUN 12 LAB L501.1100 0.70-1.30 mg/dL Normal CREAT,SERUM 1.06 Result Comment: The validity of the calculated GFR AND GFRAA in patients over 70 years has not been determined. Clinical correlation is essential. LAB L501.1110 >60 mL/min Normal EST GFR 75 Result Comment: Non- GFR Calc LAB L501.1115 >60 mL/min Normal EST GFR - AA 91 Result Comment: GFR Calc LAB L501.1255 ml/min Normal Estimated CRCL 71.33 LAB L501.1300 10-20 RATIO Normal BUN/CRE 11.3 LAB L501.2200 8.5-10 mg/dL Low .1 CA 8.2 LAB L501.5300 136-14 mmol/L Normal 5 NA 139 LAB L501.5600 3.5-5. mmol/L Normal 1 K 3.8 LAB L501.5900 98-107 mmol/L Normal CL 106 LAB L501.6100 21.0-3 mmol/L Normal 2.0 CO2 25.0 LAB L501.6200 5-15 Normal GAP 8 Performed By: #### L500.2500 #### [facility] [address] [place], [place], [address] PROTHROMBIN TIME W/INR Collected: 11/22/2017 Status: F Source: [place] 6:[address] [facility] REPOSITORY TYPE CODE TESTS RESULT OUT OF RANGE REFERENCE UNITS LAB L300.4150 11.7-14.9 SECONDS Normal PROTIME 14.5 LAB L300.4200 Normal INR 1.1 Performed By: #### L300.3900 #### [facility] [address] [place], [address] OPERATIVE REPORT Observed: 11/21/2017 Status: F Source: [place] 2:[address] [facility] REPOSITORY [facility] Medical Records Department [address] [place] [address] Operative Report 11/21/17 1020 MR#: [id number] Acct: [id number] Name: SHARRON WILHELM Rep #: [id number] : 1955 62 From: Lai Fernandez MD PCP: Nanette Lopez MD Status: ADM IN Y Location: [place] [address] Report of Operation Date of Procedure: 11/21/17 Pre-Operative Diagnosis: Right hip primary osteoarthritis Post-Operative Diagnosis: Right hip primary osteoarthritis Surgery/Procedure Performed:: Right direct anterior total hip replacement Description of Surgical Findings:: Stable hip with equal leg length marine resource economist: Magdaleno Spicer Type of Anesthesia:: Spinal Anesthesiologist: Philip Carrillo Special Medications: 2 g Ancef, 1 g TXA at incision, 1 g TXA closure, 10 mg Decadron, joint cocktail (5 mg Duramorph, 30 mL of 0.5% Ropivicaine, 1000 units of epinephrine, 30 mg of Toradol) Specimen's removed: Bony cuts Estimated Blood Loss (mL): 150 Fluids Replaced: 1400 Description of Procedure: Components used: 1. Anato Natalie femoral stem size 7 2. Natalie trident acetabular shell size 56 mm 3. Arnett X3 polyethylene f 4. Natalie Biolox delta 36mm, 0mm femoral head Brief history operative indications: 62 yo m who failed conservative measures for their hip osteoarthritis. X-rays were consistent with osteoarthritis including joint space narrowing, osteophyte formation and subchondral cysts. Total hip replacement was discussed with the patient with risks and benefits including but not limited to blood loss, DVTs, PEs, neurovascular damage, dislocation, general risks of anesthesia including loss of life. Patient demonstrated an understanding medical clearance is obtained the patient was consented for surgery. Procedure: On the date of procedure the patient's R hip was marked in the preoperative area. Patient was then taken back to the operating room where anesthesia assumed control of the C-spine and airway and administered anesthetic. Patient was transferred to the operating table and placed in the supine position. The hips were placed at the break of the bed and a sacral bump was placed. The R lower extremity was then prepped out in a sterile fashion using chlorhexidine while the surgeon scrubbed. The PA was vital in the positioning of the patient. Upon reentering the room the R lower extremity was draped in the standard orthopedic fashion and the incision was marked. A timeout was called and everyone agreed upon the side, the site, the procedure be performed, antibody given, and patient's identity. At this time incision was made through skin, subcutaneous tissue, and fat down to fascia. The fascia was then incised and the TFL was retracted laterally. A retractor was placed on the lateral border of the femoral neck. Attention was directed to the inferior portion of the approach and all crossing vessels were identified and appropriately coagulated. A retractor was then placed on the medial portion of the femoral neck. The anterior capsule was then cleared of all soft tissue and then H shaped capsulotomy was made. The retractors were then placed inside the capsule. The femoral neck was identified and a cleanup cut was made. At this time a power corkscrew was used to remove the femoral head. Attention was then turned toward the acetabulum where the soft tissues were appropriately retracted and the acetabulum was sequentially reamed to 55 mm. A 56 mm cup was then selected and impacted into place. Acetabular liner was impacted into place and locking mechanism was verified. The position of the acetabular cup was then verified under live fluoroscopy. Attention was then turned to the femur. Soft tissue releases on the medial and lateral femoral neck were appropriately done, the leg was externally rotated and lateralized. A David retractor was placed medially and proximally to the greater trochanter this allowed appropriate visualization and exposure of the femoral canal. Rongeour was then used to remove excess lateral bone. A canal finder and entry broach were used to open the proximal canal. Once we verified we were down the femoral canal we subsequently broached up to a size 7 femur. The appropriate neck was placed in the previously selected head was trialed with a 0 mm neck. Traction was pulled and the hip was reduced with internal rotation. Once it was appropriately reduced and stability was checked. There was minimal shuck, equal leg lengths and appropriate stability with hyperextension and external rotation as well as with 90 flexion and internal rotation. Fluoroscopy was then also used to verify the position of the components and leg lengths using the contralateral side for comparison. The trial components were then dislocated the proximal femur was again exposed and the components were removed from the wound. The final components were verified and opened. The wound was copiously irrigated out with normal saline. The acetabulum was checked for any residual debris. The final components were placed and impacted. Traction and internal rotation were again used to reduce the hip. After adequate reduction the hip remained stable with appropriate leg lengths. The final components were once again checked with live fluoroscopy and were found to be satisfactory. The wound was then copiously irrigated with normal saline once more, and hemostasis was obtained. Closure was then done using #1 Vicryl runner to close the fascia. A 2-0 vicryl interuppted sutures were used to close the subcutaneous skin. A 3-0 Monocryl and Steri-Strips were used for final skin closure. A Silverlon dressing was placed. Patient was awakened by anesthesia and transferred to the [facility]. Patient was then transferred to the PACU for recovery. Postoperative plan: Patient will get 24 hours postop antibiotics. Patient will get in-house physical therapy and will be weight-bear as tolerated. Patient will follow up in office in 2 weeks for a wound check and x-rays. During the course of the procedure the physician day care assistant played a vital role. His intimate knowledge of my steps in the procedure aided in safe and expedient completion of the procedure. the PA played a vital rolls in positioning particularly in obtaining the appropriate position at the break of the bed and placing the sacral bump. The PA was also vital in the retraction of soft tissues during the exposure and especially the femoral work as this is a vital part of the procedure to prevent neurovascular damage, fractures, cortical breaches and other complications. The PA was also vital and protecting soft tissues during times of bony cuts and reaming. He also played a vital role in closure with my direct supervision. The PA was also important during reduction and dislocation of the joint and trials intraoperatively. Grafts/Implants Used: Natalie Anato - Complications none - Admit VTE Documentation VTE Present on Admission: No VTE Mechan Device Prophylaxis: SCD's, Thigh High WILL Hose VTE Pharm Prophylaxis ordered?: Yes 11/21/17 6829 <Electronically signed by Lai Fernandez MD> Date Lai Fernandez MD CC: Nanette Lopez MD; Lai Fernandez MD Signed PROTIME W/INR Collected: 11/21/2017 Status: F Source: AL[place] FINGERSTICK 11:[address] [facility] REPOSITORY TYPE CODE TESTS RESULT OUT OF RANGE REFERENCE UNITS LAB L9200.1001 11.9-14.4 SEC Normal PROTIME ISTAT 12.7 Result Comment: Reference Range 11.9 - 14.4 LAB L9200.2000 Normal INR ISTAT 1.10 Result Comment: Critical Value > 3.5 Performed By: #### L9200.0000 #### [facility] Point of Care [address] [place] [address] HIP MIN 2 VIEWS Observed: 11/21/2017 Status: F Source: ALFONSO (PORTABLE) 6:[address] [facility] REPOSITORY [facility] Imaging Services [address] [place] [address] Hip Min 2 Views (Portable) MR#: [id number] Acct: [id number] Name: SHARRON WILHELM Rep #: [id number] : 1955 62 From: Valeriano Zuleta MD PCP: Nanette Lopez MD Status: ADM IN Study: Hip Min 2 Views (Portable) Date of Exam: 11/21/17 Exam# [id number] Ordering Dr: Lai Fernandez MD STUDY: X-RAY - PELVIS AND RIGHT HIP REASON FOR EXAM: Male, 62 years old. Postop hip replacement. TECHNIQUE: Radiological exam, hip, unilateral, with pelvis when performed; 2 or 3 views. COMPARISON: None. FINDINGS: There is a right hip arthroplasty with a satisfactory appearance, and no evidence for complication. Normal bilateral iliac wings, sacroiliac joints and visualized sacrum. Normal bilateral superior and inferior pubic rami. Normal pubic symphysis. Normal bilateral ischial tuberosities. RAD/Hip Min 2 Views (Portable) IMPRESSION: There is a right hip arthroplasty with a satisfactory appearance, and no evidence for complication. Electronically Signed: Valeriano Zuleta MD at 16:06 EDT , Service support , CC: Nanette Lopez MD; Lai Fernandez MD Customer Support Analyst: Signed HIP 1 VIEW WITH Observed: 11/21/2017 Status: F Source: [place] PELVIS 12:[address] [facility] REPOSITORY [facility] Imaging Services [address] [place] [address] Hip 1 view with Pelvis MR#: [id number] Acct: [id number] Name: ROSANNASHARRON ESTRADA Rep #: [id number] : 1955 M 62 From: Sukumar Adkins MD PCP: Nanette Lopez MD Status: ADM IN Study: Hip 1 view with Pelvis Date of Exam: 11/21/17 Exam# [id number] Ordering Dr: Lai Fernandez MD STUDY: X-RAY - PELVIS AND RIGHT HIP REASON FOR EXAM: Hip pain. TECHNIQUE: Radiological exam, hip, unilateral, with pelvis when performed; 2 or 3 views. COMPARISON: Radiographs 05/04/2017. FINDINGS: 2 fluoroscopic views demonstrate a total right hip arthroplasty in satisfactory position. Electronically Signed: Sukumar Adkins MD at 16:13 EDT Tel , Service support , RAD/Hip 1 view with Pelvis CC: Nanette Lopez MD; Lai Fernandez MD Customer Support Analyst: Signed ECHOCARDIOGRAM COMPLETE Observed: 11/09/2017 Status: F Source: ALF[place] 5:[address] [facility] REPOSITORY [facility] Cardiovascular Services [address] [place] [address] Echo Complete 11/09/17 1412 MR#: [id number] Acct: [id number] Name: SHARRON WILHELM Rep #: [id number] : 1955 62 From: Judson Guzman MD Attending Dr: Nanette Cullen [employer]CH CHIEF Status: REG CLI Ordering Dr: Nanette Cullen [employer] CHIEF-C Date: 11/09/17 Location: [facility] Sex: M C Admitted: Reason For Study: MVP Procedure This was a 2D Doppler, Color Flow transthoracic echocardiogram. Exam performed in department. Left Ventricle Normal LV size. Moderate concentric left ventricular hypertrophy. Left ventricular systolic function is normal. The estimated ejection fraction is 60 %. Transmitral doppler flow suggestive of impaired relaxation of left ventricle. No regional wall motion abnormalities noted. Right Ventricle Normal RV size. Normal systolic function. Atria Normal left atrium. Normal right atrium. Mitral Valve Bileaflet diffuse mitral valve thickening. Mild (1+) eccentric mitral valve insufficiency. Tricuspid Valve Normal tricuspid valve. Unable to estimate RV systolic pressure, pulmonary artery pressure probably normal. Aortic Valve Trisinus/trileaflet aortic valve. Mild (1+) eccentric aortic valve insufficiency. Pulmonic Valve Normal pulmonic valve. Great Vessels Normal aortic root. The pulmonary artery is normal size. Normal inferior vena cava. Pericardium/Pleural No pericardial effusion. MMode/2D Measurements AND Calculations LVIDd: 3.7 cm IVSd: 1.5 cm Ao root diam: 3.8 cm LVIDs: 2.7 cm LVPWd: 1.4 cm RVDd: 3.2 cm FS: 26.4 % LAV(MOD-bp): 33.1 ml EDV(MOD-sp4): 157.3 ml SV(MOD-sp4): 107.5 ml LAV(MOD-bp) Indexed: 16.9 ml/m2 ESV(MOD-sp4): 49.8 ml LAV(MOD-sp2): 35.7 ml EF(MOD-sp4): 68.3 % LAV(MOD-sp4): 31.1 ml LA A4 area: 12.8 cm2 RA A4 area: 13.9 cm2 Time Measurements MV dec time: 0.27 sec Doppler Measurements AND Calculations MV E max joshua: 56.8 cm/sec Lat Peak E' Joshua: 8.7 cm/sec Med Peak E' Joshua: 6.9 cm/sec MV A max joshua: 79.5 cm/sec E/E' lat: 6.6 E/E' med: 8.3 MV E/A: 0.71 Ao V2 max: 114.3 cm/sec LV V1 max: 103.7 cm/sec PA V2 max: 75.5 cm/sec Ao max P.2 mmHg LV V1 max P.3 mmHg Interpretation Summary Normal LV size. Moderate concentric left ventricular hypertrophy. Left ventricular systolic function is normal. The estimated ejection fraction is 60 %. Transmitral doppler flow suggestive of impaired relaxation of left ventricle Ordering Physician: Nanette Cullen/Roger Alvarado Referring Physician: NANETTE LOPEZ Performed By: Cathy Ruff RDCS 11/09/17 1752 Date Judson Guzman MD CC: REMBERTO Guardado Roof; Nanette Lopez MD Date Dictated: 11/09/17 141 Date Transcribed: 11/09/171751 Customer Support Analyst: Signed HISTORY AND PHYSICAL Observed: 11/06/2017 Status: F Source: MENASHA EXAM 11:[address] [facility] REPOSITORY [facility] Medical Records Department [address] [place] [address] History and Physical 11/06/17 0854 MR#: [id number] Acct: [id number] Name: SHARRON WILHELM Rep #: [id number] : 1955 62 From: Magdaleno Spicer PA-C PCP: Nanette Lopez MD Status: PRE IN Y Location: [facility] History and Physical DATE OF SURGERY: 11/21/2017 SCHEDULED PROCEDURE: RIGHT TOTAL HIP ARTHROPLASTY HISTORY OF PRESENT ILLNESS: This is a 62-year-old male who is been having ongoing pain in his right hip for the past 1 year. Pain can reach as high as an 8 out of 10. Pain is been intermittent, dull, aching, sharp, stabbing, and sore. Pain is increased with going up and down stairs, walking any amount of distance, sitting for extended periods of time, and driving. Patient states exercise has been minimally helpful. Patient has difficult time with activities of daily living including showering, getting dressed, shopping, and doing any lifting or squatting. Pain is located in the groin. Pain does awaken him at night. Patient has tried conservative measures consisting of rest and elevation with minimal relief. Patient has had previous corticosteroid injection into the hip and spine with no relief in symptoms. Patient has also been through formal physical therapy and home exercises with minimal relief. He has tried oral medications consisting of Tylenol with no relief in symptoms. Patient does take Coumadin due to previous history of atrial fibrillation. Patient denies previous surgery on the right hip. He has been using a cane as needed. After failing conservative measures and discussing all treatment options with Dr. Fernandez, the patient would like to proceed with a right total hip arthroplasty. Patient has history of atrial fibrillation in which she underwent a cardioversion previously. Since then he has never been in atrial fibrillation. He has been taking Coumadin since. He also has history of gastric reflux disease and cardiomyopathy. Patient currently denies any chest pain, shortness of breath, fevers chills, recent infection. Patient is currently undergoing preoperative clearance by his physical therapy technician Dr. Alvarado. Anticipate stopping Coumadin 5 days prior to surgery. Patient has received clearance from his primary care physician Dr. Lopez. REVIEW OF SYSTEMS: ROS: Const: Denies change in appetite, fever,or weight change. CV: Denies chest pain, heart murmur and irregular heartbeat. Resp: Denies cough, pneumonia, SOB, tuberculosis and wheezing. GI: Denies constipation, diarrhea, difficulty swallowing, heartburn, nausea, bloody stools and vomiting. : . (F Genital Sx) Urinary: denies incontinence. Musculo: Reports limp, trouble walking and weakness, but denies leg swelling. Skin: Denies Raynaud's, history of shingles and tattoo. Neuro: Denies ambulatory dysfunction, dizziness, numbness/tingling and tremor. Psych: Denies anxiety, insomnia and stress. Jaylan/Lymph: Reports bleeding/bruising tendency, but denies anemia and past transfusion. Reviewed, no changes. PAST MEDICAL HISTORY: Advance Care Plan: Other Directive, LIVING WILL Effective Date: 10/23/2017 PMH: Medical Problems: Gout, reflux, Afib, cardio myelopathy Accidents: Fracture - RT WRIST RT ELBOW Surgical Hx: Knee Arthroscopy Lt Anesthesia Complications: None Assistive Devices: Glasses Reviewed and updated. SOCIAL HISTORY: SH: Marital: .Occupation: Retired.Work Status: Retired.Hand Dominance: Right-handed. Personal Habits: Cigarette Use: Never Smoked Cigarettes.Alcohol: Occasionally.Drug Use: Denies Use.Enjoy Exercising: Daily. Reviewed, no changes. VITALS: Ht: 69 Wt: 176lb Wt k.834 BMI: 26.0 BP: 122/76 Pulse: 80 Resp: 16 T: 97.7 T: 36.5C ALLERGIES: No Known Drug Allergy MEDICATIONS: Aspirin 81 Low Dose 81 mg 1po qday, Welchol 625 mg 4 tabs by mouth daily, Flecainide Acetate 100 mg 1 by mouth every day, Valsartan 40 mg 1po qday, Metoprolol 50 mg 1po qday, Warfarin Sodium 4 mg prn, Nexium 20 mg 1 by mouth every day PRE-OP EXAM: General appearance:NORMAL Other: Eyes: Conjunctivae and lids: NORMAL Pupils: ERR Ears, Nose, Mouth, and Throat: NORMAL Other: Inspection of lips, teeth and gums: NORMAL Other: Neck: Examination of neck: no masses noted. Respiratory: Assessment of respiratory effort: NORMAL Other: Ausculation of lungs: clear to ausculation no wheeses, ronchi or rales. Cardiovascular: Ausculation of heart: regular rate and rhythem, no mummurs, gallops or rubs. Exam of carotid arteries: NORMAL Other: Gastrointestinal: Exam of abdomen: soft, nontender, nondistended bowel sounds present. PHYSICAL EXAMINATION: Patient walks with an antalgic gait. Range of motion of the right hip is 90 of flexion, internal rotation to 10 , and external rotation to 20 . Pain is increased with internal and external rotation. Sensations intact to light touch. IMAGING STUDIES: X-rays were obtained at [facility] [place] on November 06, 2017 including AP pelvis, AP right hip, and crossfire lateral right hip reveals joint space narrowing, subchondral sclerosis, and osteophyte formation consistent with moderate to severe osteoarthritis of the right hip. No findings for fracture. No lytic or blastic lesions. IMPRESSION: 1. Moderate to severe right hip osteoarthritis 2. History of atrial fibrillation with previous cardioversion: Currently on Coumadin 3. Gastric reflux disease 4. History of gout 5. Cardiomyopathy PLAN: Dr. Fernandez did discuss and review with the patient all treatment options including surgical versus nonsurgical. Patient wishes to proceed with above- stated procedure. Potential risks, benefits, and complications of this procedure were discussed in detail including but not limited to , infection, nerve and blood vessel damage, persistent pain, numbness, tingling, paresthesias, blood clot, pulmonary embolism, and requirement for further surgery. The patient expressed full understanding has no further questions for the doctor. Patient does agree to proceed with the above-stated procedure and has signed the surgery consent form. ___ I have re-examined the patient. There are no clinical changes since date of exam. ___ See progress notes for changes. ___ Dictated on admission Date: Time: Signature: 11/06/17 1125 <Electronically signed by Magdaleno Spicer PA-C> Date Magdaleno Spicer PA-C Cosigner Signature: Date (if applicable) CC: Nanette Lopez MD; Magdaleno MARIE Signed CBC W/DIFF, AUTOMATED Collected: 11/06/2017 Status: F Source: ALFONSO 10:[address] [facility] REPOSITORY TYPE CODE TESTS RESULT OUT OF RANGE REFERENCE UNITS LAB L100.1000 4.4-11.0 K/mm3 Normal WBC 8.0 LAB L100.1200 4.6-6.2 M/mm3 Low RBC 4.36 LAB L100.1300 13.0-16.5 g/dl Normal HGB 14.6 LAB L100.1400 40-54 % Normal HCT 42.8 LAB L100.1500 80-94 fL High MCV 98.2 LAB L100.1600 27.0-32.0 pg High MCH 33.5 LAB L100.1700 32-36 g/gl Normal MCHC 34.1 LAB L100.1810 11.6-14.6 % Normal RDW CV 12.0 LAB L100.1820 35.1-43.9 fl Normal RDW SD 42.2 LAB L100.1900 150-450 K/mm3 Normal PLT 232 LAB L100.2000 6.2-12.0 fl Normal MPV 9.3 LAB L100.2100 47-70 % Normal NEUT% 67.3 LAB L100.2200 19-41 % Low LY% 18.4 LAB L100.2300 0-10 % High MONO% 12.9 LAB L100.2400 0-5 % Normal EO% 0.9 LAB L100.2500 0-1 % Normal BASO% 0.5 LAB L100.2550 0.0-0.9 % Normal IM GRAN % 0.000 Result Comment: IG% - Immature Granulocytes (promyelocytes, myelocytes and metamyelocytes) > 1% indicates that a LEFT SHIFT is Present. LAB L100.2620 2.0-7.7 X10 3/uL Normal Absolute Neut 5.4 LAB L100.2720 0.83-4.51 X10 3/ul Normal Absolute Lymph 1.47 Performed By: #### L100.0100 #### [facility] [address] [place], [place], [address] BASIC METABOLIC Collected: 11/06/2017 Status: F Source: MENASHA PROFILE (BMP) 10:[address] [facility] REPOSITORY TYPE CODE TESTS RESULT OUT OF RANGE REFERENCE UNITS LAB L501.0100 74-106 mg/dL Normal GLU 87 Result Comment: Please note revised GLUCOSE reference range effective 2017. LAB L501.1000 7-18 mg/dL Normal BUN 9 LAB L501.1100 0.70-1.30 mg/dL Normal CREAT,SERUM 0.80 Result Comment: The validity of the calculated GFR AND GFRAA in patients over 70 years has not been determined. Clinical correlation is essential. LAB L501.1110 >60 mL/min Normal EST GFR 103 Result Comment: Non- GFR Calc LAB L501.1115 >60 mL/min Normal EST GFR - AA 125 Result Comment: GFR Calc LAB L501.1255 ml/min Normal Estimated CRCL 94.51 LAB L501.1300 10-20 RATIO Normal BUN/CRE 11.2 LAB L501.2200 8.5-10 mg/dL Normal .1 CA 8.5 LAB L501.5300 136-14 mmol/L Normal 5 NA 141 LAB L501.5600 3.5-5. mmol/L Normal 1 K 3.9 LAB L501.5900 98-107 mmol/L High CL 108 LAB L501.6100 21.0-3 mmol/L Normal 2.0 CO2 25.0 LAB L501.6200 5-15 Normal GAP 8 Performed By: #### L500.2500 #### [facility] [address] [place], [address] Observed: 11/06/2017 Status: F Source: ALFONSO MRSA/SAID SCREEN 10:[address] [facility] REPOSITORY MRSA/SAID SCRN S. AUREUS S. aureus Positive MRSA MRSA Negative Performed By: #### M100.651 #### [facility] [address] [place], [address] PROTHROMBIN TIME W/INR Collected: 09/08/2017 Status: F Source: ALFONSO 9:[address] [facility] REPOSITORY TYPE CODE TESTS RESULT OUT OF RANGE REFERENCE UNITS LAB L300.4150 11.7-14.9 SECONDS High PROTIME 22.1 LAB L300.4200 Normal INR 2.0 Performed By: #### L300.3900 #### [facility] [address] [place], [address] ALLERGIES ALLERGIES DATE TYPE / CODE NAME / CODE REACTION SEVERITY SOURCE 04/20/2018 Drug oxycodone/F0 Confused, [facility] Allergy/416 [id number](RXN [facility] Hospital 453718(SNOM ORM) Repository ED CT) 04/20/2018 Drug scopolamine/ Confused, [facility] Allergy/416 I911018080(R [facility] 923385(SNOM XNORM) Repository ED CT) 11/06/2017 Drug No Known Unknown [facility] Allergy/416 Allergies/F0 Hospital 719167(SNOM [id number](RXN Repository ED CT) ORM) ENCOUNTERS ENCOUNTERS ADMIT/DISCHARGE ACCOUNT ADMITTING ENCOUNTER LOCATION SOURCE NUMBER CLASS 08/31/2018 [id number] Ambulatory [place] 3 [facility] ing:LAB Repository 07/27/2018/ [id number] Ambulatory [facility] 8 4 [facility] ing:LAB Repository 07/04/2018/ [id number] Ambulatory [facility] 8 8 [facility] ing:LAB Repository 05/25/2018/ [id number] Ambulatory [facility] 8 7 [facility] ing:LAB Repository 04/23/2018 [id number] Ambulatory [facility] [place] 4 [facility] Repository 04/20/2018/ [id number] Ambulatory [facility]:B [place] 8 7 [facility] Repository 04/19/2018/ [id number] Ambulatory [place] 8 7 [facility] ing:LAB Repository 04/18/2018 [id number] Ambulatory [facility]:B [place] 9 [facility] Repository 02/02/2018/ [id number] Amb[place] 8 5 [facility] ing:LAB Repository 01/25/2018/ [id number] Ambulatory [place] 8 2 [facility] ing:PT Repository 01/12/2018/ [id number] Ambulatory [place] 8 2 [facility] ing:LAB Repository 12/08/2017/ [id number] Ambulatory [place] 8 8 [facility] ing:LAB Repository 11/21/2017/ [id number] Jim, Inpatient [place] 8 5 Lai Matamoros [facility] ing:AR9Lies: Repository RZ211Ifs: 1 11/21/2017 [id number] Jim, Ambulatory BMSBuilding:B [place] 3 Lai AYALA.[facility] Repository 11/21/2017 [id number] Jim, Ambulatory BMSBuilding:B [place] 8 Lai AYALA.[facility] Repository 11/21/2017 [id number] Jim, Ambulatory BMSBuilding:B [place] 5 Lai AYALA.[facility] Repository 11/09/2017 [id number] Ambulatory [place] 0 [facility] ing:CVS Repository 11/09/2017 [id number] Ambulatory BMSBuilding:W [place] 6 [facility] Repository 09/08/2017/ [id number] Ambulatory [place] 8 0 [facility] ing:LAB Repository PAYERS PAYERS ENCOUNTER GUARANTOR PAYER SUBSCRIBER SOURCE 08/31/2018 SHARRON [id number] Insurance:ANTHEMPolic KOBILARCIKDOB: [facility]ly [facility] NANETTE BARRETT, y Number: [id number] [id number]: [id number] Repository Date:8046-60-52[address] () [address]RTMGLBS, [place] [address]LE: 08/31/2018 Secondary NOT GIVENUNK [place] Insurance:SELF PAY [facility] Number: Effective Repository Date:2018-08-13 07/27/2018 SHARRON Greer [facility] SHARRON [place] [id number] Insurance:ANTHEMPolic KOBILARCIKDOB: [facility] NANETTE BARRETT, y Number: [id number]-Canoncito-[facility] [id number]: [id number] Repository Date:8666-31-43LW [address] () [address]HJGJHFU, [place] [address]RJ: 07/27/2018 Secondary NOT GIVENUNK [place] Insurance:SELF PAY [facility] Number: Effective Repository Date:2018-07-16 07/04/2018 SHARRON Greer [facility] SHARRON Butterfield [place] [id number] Insurance:ANTHEMPolic KOBILARCIKDOB: [facility] NANETTE BARRETT, y Number: [id number]-Canoncito-[facility] [id number]: [id number] Repository Date:2425-07-39CU [address] () [address]XZLDWKC, [place] [address]EV: 07/04/2018 Secondary NOT GIVENUNK [place] Insurance:SELF PAY [facility] Number: Effective Repository Date:2018-06-14 05/25/2018 SHARRON Butterfield [facility] SHARRON Butterfield [place] [id number] Insurance:ANTHEMPolic KOBILARCIKDOB: [facility] NANETTE BARRETT, y Number: [id number]-Canoncito-Lag[facility] [id number]: [id number] Repository Date:3854-68-75XF [address] () [address]XCIEFJP, [place] [address]GJ: 05/25/2018 Secondary NOT GIVENUNK [place] Insurance:SELF PAY [facility] Number: Effective Repository Date:2018-05-16 04/23/2018 SHARRON T Primary NOT GIVENUNK [place] [id number] Insurance:SELF PAY [facility] [address] Number: Effective Repository Date:2017-07-28 () 04/20/2018 [facility] Primary SHARRON T [place] [id number] Insurance:ANTHEMPolic KOBILARCIKDOB: [facility] NANETTE BARRETT, y Number: [id number]-Canoncito-Lag[facility] [id number]: [id number] Repository Date:5433-96-24MP [address] () [id number] [place] [address]HH: 04/20/2018 Secondary NOT GIVENUNK [place] Insurance:SELF PAY [facility] Number: Effective Repository Date:2018-04-20 04/19/2018 [facility] Primary [facility] [place] [id number] Insurance:ANTHEMPolic KOBILARCIKDOB: [facility] NANETTE BARRETT, y Number: [id number]-Canoncito-[facility] [id number]: [id number] Repository Date:4830-32-56DC [address] () [id number] [place] [address]XS: 04/19/2018 Secondary NOT GIVENUNK [place] Insurance:SELF PAY [facility] Number: Effective Repository Date:2018-02-09 04/18/2018 [facility] Primary [facility] [place] [id number] Insurance:ANTHEMPolic KOBILARCIKDOB: [facility] NANETTE BARRETT, y Number: [id number]-Canoncito-Lag[facility] [id number]: [id number] Repository Date:6301-31-39HE [address] () [id number] [place] [address]JG: 04/18/2018 Secondary NOT GIVENUNK [place] Insurance:SELF PAY [facility] Number: Effective Repository Date:2018-04-18 02/02/2018 SHARRON Butterfield [facility] SHARRON Butterfield [place] [id number] Insurance:ANTHEMPolic KOBILARCIKDOB: [facility], y Number: [id number]-Canoncito-Lag[facility] Service [facility] [address]Njl: [id number] Repository Date:9065-55-43EB [address] () [address]AEXLQNS [place] [address]SQ: 02/02/2018 Secondary NOT GIVENUNK [place] Insurance:SELF PAY [facility] Number: Effective Repository Date:2018-01-18 01/25/2018 SHARRON Butterfield [facility] SHARRON Butterfield [place] [id number] Insurance:ANTHEMPolic KOBILARCIKDOB: [facility], y Number: [id number]-Canoncito[facility] [id number]: [id number] Repository Date:3850-05-35GZ [address] () 731214WGUZTPD, [place] [address]EI: 01/25/2018 Secondary NOT GIVENUNK [place] Insurance:SELF PAY [facility] Number: Effective Repository Date:2017-11-23 01/12/2018 SHARRON Butterfield [facility] SHARRON Butterfield [place] [id number] Insurance:ANTHEMPolic KOBILARCIKDOB: [facility], y Number: [id number]-Canoncito-Laguna Service Unit [id number]: [id number] Repository Date:6048-49-87PD [address] () 194369XJVWJFV [place] [address]FC: 01/12/2018 Secondary NOT GIVENUNK [place] Insurance:SELF PAY [facility] Number: Effective Repository Date:2017-12-12 12/08/2017 SHARRON Butterfield Primary SHARRON Butterfield [place] [id number] Insurance:ANTHEMPolic KOBILARCIKDOB: [facility], y Number: [id number]-Canoncito-Lag[facility] [address]Sfb: [id number] Repository Date:6479-09-22RR [address] () 572522SQPPYHG, [place] [address]OQ: 12/08/2017 Secondary NOT GIVENUNK [place] Insurance:SELF PAY [facility] Number: Effective Repository Date:2017-09-19 11/21/2017 SHARRON Butterfield Primary SHARRON [place] [id number] Insurance:ANTHEMPolic KOBILARCIKDOB: [facility] NANETTE [facility], y Number: [id number]-Canoncito-Lag[facility] [id number]: [id number] Repository Date:8294-98-42AT [address] () 820612ICRLZAJ, [place] [address]RF: 11/21/2017 Secondary NOT GIVENUNK [place] Insurance:SELF PAY [facility] Number: Effective Repository Date:2017-10-24 11/21/2017 SHARRON Butterfield Primary SHARRON Greer [place] [id number] Insurance:ANTHEMPolic KOBILARCIKDOB: [facility], y Number: [id number]-Canoncito-Lag[facility] Service [facility] [id number]: [id number] Repository Date:0118-52-81UM [address] () 9835[address]BUONWAT, [place] [address]QU: 11/21/2017 Secondary NOT GIVENUNK [place] Insurance:SELF PAY [facility] Number: Effective Repository Date:2017-11-21 11/21/2017 SHARRON Butterfield Primary SHARRON [place] [id number] Insurance:ANTHEMPolic KOBILARCIKDOB: [facility], y Number: [id number]-Canoncito-Laguna [facility] [id number]: [id number] Repository Date:1405-33-84XF [address] () 092374PNLNEAY, [place] [address]YV: 11/21/2017 Secondary NOT GIVENUNK [place] Insurance:SELF PAY [facility] Number: Effective Repository Date:2017-11-21 11/21/2017 SHARRON Butterfield Primary SHARRON Greer [place] [id number] Insurance:ANTHEMPolic KOBILARCIKDOB: [facility], y Number: [id number]-Canoncito-Lag[facility] [id number]: [id number] Repository Date:4039-73-73HX [address]OX () 660727ONBREZS, [place] [address]RA: 11/21/2017 Secondary NOT GIVENUNK [place] Insurance:SELF PAY [facility] Number: Effective Repository Date:2017-11-21 [facility]/09/2017 [facility] [place] [id number] Insurance:ANTHEMPolic KOBILARCIKDOB: [facility] NANETTE BARRETT, y Number: [id number]-Canoncito-[facility] [id number]: [id number] Repository Date:7679-06-54NS [address] () 342387EQIIEKR, [place] [address]NR: 11/09/2017 Secondary NOT GIVENUNK [place] Insurance:SELF PAY [facility] Number: Effective Repository Date:2017-10-27 11/09/2017 [facility] [place] [id number] Insurance:ANTHEMPolic KOBILARCIKDOB: [facility] NANETTE BARRETT, y Number: [id number]-Canoncito-Lag[facility] Unit [id number]: [id number] Repository Date:6917-16-43DJ [address] () 390321IUEYWUI, [place] [address]WQ: 11/09/2017 Secondary NOT GIVENUNK [place] Insurance:SELF PAY [facility] Number: Effective Repository Date:2017-11-09 09/08/2017 [facility] [place] [id number] Insurance:ANTHEMPolic KOBILARCIKDOB: [facility] NANETTE BARRETT, y Number: [id number]-Canoncito-[facility] [id number]: [id number] Repository Date:9953-50-71IX [address] () 99[address]OKZRQCE, [place] [address]HW: 09/08/2017 Secondary NOT GIVENUNK [place] [facility] Number: Effective Repository Date:2017-08-14
== END 2018-07-27 09:00 | disposition home or self-care (01) ==
LOC: LAB 08:52
PROVIDERS: Family Provider Family Medicine; PCP Family Medicine; Referring Provider Internal Medicine Cardiovascular Disease; Visit Provider Internal Medicine Cardiovascular Disease
DX: I48.0 Paroxysmal atrial fibrillation (principal); Z79.01 Long term (current) use of anticoagulants
CPT/HCPCS: 36415; 85610

== ENCOUNTER 2018-08-31 09:41 | Outpatient (RCR) | payer BC, SELFPAY ==
[2018-04-20 09:12] VITALS: BMI 25.2
[2018-08-31 10:45] LABS: International Normalized Ratio 2.6; Prothrombin Time (Protime)PT. 27.9 SECONDS (11.7-14.9)
--- OUTSIDE RECORDS SUMMARY | 2018-11-04 17:13 | XMS RPT_ITS ---
:1955 Author Organization OHIP Support Name Relationship Address Phone MELONIE BOB Unavailable [address] + [place] [address] R Unavailable Unavailable Unavailable KOBILARCIK, BOB Unavailable [address] + [place] [address] R Unavailable Unavailable Unavailable KOBILARCIK, BOB Unavailable [address] + [place] [address] R Unavailable Unavailable Unavailable KOBILARCIK, BOB Unavailable [address] + [place] [address] R Unavailable Unavailable Unavailable KOBILARCIK, BOB Unavailable [address] + [place] [address] R Unavailable Unavailable Unavailable KOBILARCIK, BOB Unavailable [address] + [place] [address] R Unavailable Unavailable Unavailable KOBILARCIK, BOB Unavailable [address] + [place] [address] R Unavailable Unavailable Unavailable KOBILARCIK, BOB Unavailable [address] + [place] [address] R Unavailable Unavailable Unavailable KOBILARCIK, BOB Unavailable [address] + [place] [address] R Unavailable Unavailable Unavailable KOBILARCIK, BOB Unavailable [address] + [place] [address] R Unavailable Unavailable Unavailable KOBILARCIK, BOB Unavailable [address] + [place] [address] R Unavailable Unavailable Unavailable KOBILARCIK, BOB Unavailable [address] + [place] [address] R Unavailable Unavailable Unavailable KOBILARCIK, BOB Unavailable [address] + [place] [address] R Unavailable Unavailable Unavailable KOBILARCIK, BOB Unavailable [address] + [place] [address] R Unavailable Unavailable Unavailable KOBILARCIK, BOB Unavailable [address] + [place] [address] R Unavailable Unavailable Unavailable KOBILARCIK, BOB Unavailable [address] + [place] [address] R Unavailable Unavailable Unavailable KOBILARCIK, BOB Unavailable [address] + [place] [address] R Unavailable Unavailable Unavailable KOBILARCIK, BOB Unavailable [address] + [place] [address] R Unavailable Unavailable Unavailable Care Team Providers Name Role Phone Roger Alvarado Attending Unavailable Roger Alvarado Referring Unavailable Lopez, Nanette Primary Care Unavailable Roger Alvarado Attending Unavailable Roger Alvarado Referring Unavailable Lopez, [facility] Unavailable Jim, Lai Admitting Unavailable Lopez, Nanette Primary Care Unavailable Jopperi, Shawn Consulting Unavailable SementiNeha Attending Unavailable Roof, Nanette H Attending Unavailable Roof, Nanette H Referring Unavailable Lopez, Nanette Primary Care Unavailable Jim, Lai Admitting Unavailable Lopez, Nanette Primary Care Unavailable Jopperi, Shawn Consulting Unavailable Jopperi, Shawn Attending Unavailable Jim, Lai Consulting Unavailable Jim, Lai Admitting Unavailable Sementi, Neha Attending Unavailable Lopez, Nanette Primary Care Unavailable Jopperi, Shawn Consulting Unavailable Sementi, Neha Consulting Unavailable Magdaleno Spicer PA-C Attending Unavailable EsMagdaleno juarez PA-C Referring Unavailable Lopez, Nanette Primary Care Unavailable Jim, Lai Admitting Unavailable Sementi, Neha Attending Unavailable Lopez, Nanette Primary Care Unavailable Jopperi, Shawn Consulting Unavailable Sementi, Neha Consulting Unavailable MeganSupa ramirezril Attending Unavailable Roof, Nanette H Referring Unavailable 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 Attending Unavailable Roger Alvarado Referring Unavailable Lopez, Nanette Primary Care Unavailable Roger Alvarado Attending Unavailable Roger Alvarado Referring Unavailable Lopez, Nanette Primary Care Unavailable Roger Alvarado Attending Unavailable Moodispaw, Roger Referring Unavailable Lopez, [...] STATUS SOURCE 08/13/2018 Unknown I48.0 - Paroxysmal Moodhafsagerardosari Roger Active [place] atrial fibrillation [facility] / I48.0(ICD-10) Hospital Repository 06/14/2018 Unknown 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 Active [place] (current) use of [facility] anticoagulants / Hospital Z79.01(ICD-10) Repository 04/20/2018 Unknown I10 - Essential Moodiskenyon Roger Active [place] (primary) [facility] hypertension / Hospital I10(ICD-10) Repository 04/20/2018 Unknown E78.5 - Moodispasari Roger Active [place] Hyperlipidemia, [facility] unspecified / Hospital E78.5(ICD-10) Repository 02/09/2018 Unknown I48.91 - Unspecified Moodiskenyon, Roger Active [place] atrial fibrillation [facility] / I48.91(ICD-10) Hospital Repository 01/31/2018 Unknown M16.11 - Unilateral Eshenaur, Active [place] [facility] / Repository M16.11(ICD-10) 11/23/2017 Unknown G89.18 - Other acute Sementi, Active [place] postprocedural pain Neha [facility] / G89.18(ICD-10) Hospital Repository 11/22/2017 Unknown Z96.641 - Presence Sementi, Active [place] of right artificial [facility] hip joint / Hospital Z96.641(ICD-10) Repository PROCEDURES PROCEDURES No Procedure Records FoundRESULTS RESULTS PROTHROMBIN TIME W/INR Collected: 08/31/2018 Status: F Source: [place] 9:46 AM [facility] HOSPITAL REPOSITORY TYPE CODE TESTS RESULT OUT OF RANGE REFERENCE UNITS LAB L300.4150 11.7-14.9 SECONDS High PROTIME 27.9 LAB L300.4200 Normal INR 2.6 Performed By: #### L300.3900 #### [facility] [address] [place], [place], [address] PROTHROMBIN TIME W/INR Collected: 07/27/2018 Status: F Source: [place] 8:58 AM [facility] REPOSITORY TYPE CODE TESTS RESULT OUT OF RANGE REFERENCE UNITS LAB L300.4150 11.7-14.9 SECONDS High PROTIME 17.2 LAB L300.4200 Normal INR 1.4 Performed By: #### L300.3900 #### [facility] [address] [place], [place], [address] PROTHROMBIN TIME W/INR Collected: 07/04/2018 Status: F Source: [place] 8:48 AM [facility] REPOSITORY TYPE CODE TESTS RESULT OUT OF RANGE REFERENCE UNITS LAB L300.4150 11.7-14.9 SECONDS High PROTIME 23.4 LAB L300.4200 Normal INR 2.1 Performed By: #### L300.3900 #### [facility] [address] [place], [place], [address] PROTHROMBIN TIME W/INR Collected: 06/22/2018 Status: F Source: [place] 9:54 AM [facility] REPOSITORY TYPE CODE TESTS RESULT OUT OF RANGE REFERENCE UNITS LAB L300.4150 11.7-14.9 SECONDS High PROTIME 15.5 LAB L300.4200 Normal INR 1.2 Performed By: #### L300.3900 #### [facility] [address] [place], [address] PROTHROMBIN TIME W/INR Collected: 05/25/2018 Status: F Source: [place] 9:07 AM [facility] REPOSITORY Order Comment: Comments: STANDING ORDER Comments: STANDING ORDER TYPE CODE TESTS RESULT OUT OF RANGE REFERENCE UNITS LAB L300.4150 11.7-14.9 SECONDS High PROTIME 21.5 LAB L300.4200 Normal INR 1.9 Performed By: #### L300.3900 #### [facility] [address] [place], [place], [address] CARDIOLOGY VISIT Observed: 04/20/2018 Status: F Source: [place] REPORT 9:51 AM [facility] REPOSITORY [facility] [address] [place] [address] OFFICE VISIT Date of Service: 04/20/18 MR#: [id number] Acct: [id number] Name: SHARRON WILHELM Rep #: [id number] : 1955 Provider: Roger Alvarado MD Age/Sex: 62/M Location: [facility] [place], [place] Status: Signed HPI HPI Details: SHARRON WILHELM, [...] mg PO Q8 PRN tab 04/20/18 [History] [facility] Medical History Hyperlipidemia (Chronic) Hypertension (Chronic) Nonrheumatic mitral (valve) prolapse (Acute) Cardiomyopathy in other diseases classified elsewhere (Chronic) Acute blood loss anemia (Acute) Hypokalemia (Acute) Insomnia (Chronic) Toxic encephalopathy (Acute) Status post total hip replacement, right (Acute) Paroxysmal atrial fibrillation (Chronic) 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 lumber cutter current use of anticoagulant Z79.01 Plan He [...] Essential hypertension I10 Hypertension type: essential hypertension detention current use of anticoagulant Z79.01 Coding Level of Care Code Off vis,est,level 4 Diagnoses Paroxysmal atrial fibrillation I48.0 Nonrheumatic mitral (valve) prolapse I34.1 Hyperlipidemia, unspecified hyperlipidemia type E78.5 Hyperlipidemia type: unspecified Essential hypertension I10 Hypertension type: essential hypertension detention current use of anticoagulant Z79.01 04/20/18 0951 <Electronically signed by Roger Alvarado MD> Date Roger Alvarado MD Cosigner Signature: Date (if applicable) CC: 12 LEAD EKG PERFORMED Observed: 04/20/2018 Status: F Source: [place] BY [facility] [place] 9:18 AM [facility] REPOSITORY [facility] [address] [place] [address] 12 Lead EKG performed by [facility] [place] 04/20/18916 MR#: [id number] Acct: [id number] Name: SAHRRON WILHELM Rep #: [id number] : 1955 62 From: Roger Alvarado MD Attending Dr: Roger Alvarado MD Status: DEP AMB Ordering Dr: Roger Alvarado MD Date: 04/20/18 Location: [facility] [place] [place] Sex: M C Admitted: [facility] [place]/12 Lead EKG performed by [facility] [place] ECG Report Interpretation Sinus Rhythm Left axis deviationICRBBBLeft anterior fascicular blockPoor R wave progressionABNORMAL Electronically signed on 04/20/2018 at 11:43 by Roger Alvarado [employer] Version 8610 04/20/18 1144 Date Roger Alvarado MD CC: Date Dictated: 04/20/18916 Date Transcribed: 04/20/18916 X Ray Equipment Mechanic: PM Signed PROTHROMBIN TIME W/INR Collected: 04/19/2018 Status: F Source: [place] 8:32 AM [facility] REPOSITORY TYPE CODE TESTS RESULT OUT OF RANGE REFERENCE UNITS LAB L300.4150 11.7-14.9 SECONDS High PROTIME 32.1 LAB L300.4200 Normal INR 3.1 Performed By: #### L300.3900 #### [facility] [address] [place], [address] PROTHROMBIN TIME W/INR Collected: 02/02/2018 Status: F Source: [place] 8:37 AM [facility] REPOSITORY TYPE CODE TESTS RESULT OUT OF RANGE REFERENCE UNITS LAB L300.4150 11.7-14.9 SECONDS High PROTIME 25.1 LAB L300.4200 Normal INR 2.3 Performed By: #### L300.3900 #### [facility] [address] [facility] [place], [address] DOWNTIME REPORT Observed: 02/01/2018 Status: F Source: [place] 1:07 PM [facility] Medical Records Department [address] [place] [address] Downtime Report MR#: [id number] Acct: [id number] Name: SHARRON WILHELM Rep #: [id number] : 1955 62 From: Willy Lopez PCP: Nanette Lopez MD Status: REG RCR This patient was seen during an EMR downtime January 15, 2018 - January 22, 2018. This patient may have a combination of paper and electronic documentation or all paper documentation. All documentation is viewable within the e-chart portion of [employer] for each patient visit. PT D/C SUMMARY (1) Observed: 01/25/2018 Status: F Source: [place] 11:10 AM [facility] Physical Therapy [facility] [address] [place] [address]. [address] [place] [address] Fax REHABILITATION SERVICES DISCHARGE SUMMARY MR#: [id number] Acct: [id number] Name: SHARRON WILHELM Rep #: [id number] : 1955 62 From: Devonte Whyte PT, ATC Referring DrAnushka: Magdaleno MARIE Status: REG RCR Insurance: [employer]Y INSURANCE HP - PT D/C Summary It has been my pleasure to treat SHARRON MARTEHEIDIYEFRI under orders from GERARDO Gaytan, for the [...] please feel free to call me at [phone]. Thank you for the referral of this patient. Sincerely, Devonte Whyte, PT, <Electronically signed by Devonte Whyte PT, ATC> 01/25/18 1110 CC: Nanette Lopez MD; Magdaleno MARIE [facility] Signed PROTHROMBIN TIME W/INR Collected: 01/18/2018 Status: F Source: [place] 10:36 AM [facility] REPOSITORY Order Comment: RESULT(S) PREVIOUSLY REPORTED ON MANUAL REQUISITION DURING DOWNTIME. TYPE CODE TESTS RESULT OUT OF RANGE REFERENCE UNITS LAB L300.4150 11.7-14.9 SECONDS High PROTIME 18.2 LAB L300.4200 Normal INR 1.5 Performed By: #### L300.3900 #### [facility] [address] [place], [address] PROTHROMBIN TIME W/INR Collected: 01/12/2018 Status: F Source: [place] 8:45 AM [facility] REPOSITORY TYPE CODE TESTS RESULT OUT OF REFERENCE UNITS RANGE LAB L300.4150 11.7-14.9 SECONDS High PROTIME 39.8 LAB L300.4200 High alert INR 4.1 Result Comment: CRITICAL VALUE VERIFIED. CALLED TO KAYLEY KIM 01/12/18 1116 Rosa Lexus Hao. RESULTS READ BACK BY SAME. Performed By: #### L300.3900 #### [facility] [address] [place], [address] PROTHROMBIN TIME W/INR Collected: 12/08/2017 Status: F Source: [place] 10:49 AM [facility] REPOSITORY TYPE CODE TESTS RESULT OUT OF RANGE REFERENCE UNITS LAB L300.4150 11.7-14.9 SECONDS High PROTIME 20.9 LAB L300.4200 Normal INR 1.8 Performed By: #### L300.3900 #### [facility] [address] [place], [address] PROTHROMBIN TIME W/INR Collected: 11/30/2017 Status: F Source: [place] 9:18 AM [facility] REPOSITORY TYPE CODE TESTS RESULT OUT OF RANGE REFERENCE UNITS LAB L300.4150 11.7-14.9 SECONDS High PROTIME 15.9 LAB L300.4200 Normal INR 1.3 Performed By: #### L300.3900 #### [facility] [address] [place], [address] INITAL EVALUATION (1) Observed: 11/28/2017 Status: F Source: [place] - PT 11:10 AM [facility] REPOSITORY [facility] Physical Therapy [facility] [address] [place] [address]. [address] [place], [place] [address] Fax REHABILITATION SERVICES INITIAL EVALUATION MR#: [id number] Acct: [id number] Name: SHARRON WILHELM Rep #: [id number] : 1955 62 From: Devonte Whyte PT, [...] to be FAXED BACK to us at [phone] for Medicare purposes. Please let me know if there are questions or concerns regarding this plan of care. Physician Signature: Date: <Electronically signed by Devonte Whyte PT, ATC> 11/28/17 1110 CC: Nanette Lopez MD; Magdaleno MARIE [facility] Signed For Medicare only, by signing this I certify the plan of care. Physicians Signature Date DISCHARGE INSTRUCTION Observed: 11/23/2017 Status: F Source: [place] 4:29 PM [facility] REPOSITORY [facility] Medical Records Department [address] [place] [address] Instructions for Home/Discharge Instructions 11/23/17 1614 MR#: [id number] Acct: [id number] Name: SHARRON WILHELM Rep #: [id number] : 1955 62 From: Maximo Alvarez DO [...] 11/23/17 11/23/17 1629 <Electronically signed by Maximo Joanne Rowerubia DO> Date Maximo Alvarez DO CC: Shawn Hernandez DO; Nanette Lopez MD; Lai Fernandez MD CBC-COMPLETE BLOOD CNT Collected: 11/23/2017 Status: F Source: [place] NO DIFF 6:05 AM [facility] REPOSITORY TYPE CODE TESTS RESULT OUT OF [...] MPV 9.7 Performed By: #### L100.0500 #### [facility] [address] [place], [address] BASIC METABOLIC Collected: 11/23/2017 Status: F Source: [place] PROFILE (BMP) 6:05 AM [facility] REPOSITORY TYPE CODE TESTS RESULT OUT OF [...] GAP 8 Performed By: #### L500.2500 #### [facility] [address] [facility] [place], [address] DISCHARGE INSTRUCTION Observed: 11/22/2017 Status: F Source: [place] 7:16 AM [facility] REPOSITORY [facility] Medical Records Department [address] [place] [address] Instructions for Home/Discharge Instructions 11/22/17 0714 MR#: [id number] Acct: [id number] Name: SHARRON WILHELM Rep #: [id number] : 1955 62 From: Magdaleno Spicer PA-C PCP: Nanette Lopez MD Status: ADM IN ADDENDUM by Magdaleno MARIE on 11/22/17 at 0716 Patient will follow up with his research and development engineer with regards to his INR and warfarin [...] on November 26, 2017 Additional Instructions: Follow [facility] postop instructions Allergies/Adverse Reactions: Allergies No [...] F Source: [place] NO DIFF 6:08 AM [facility] REPOSITORY TYPE CODE TESTS RESULT OUT OF [...] MPV 9.3 Performed By: #### L100.0500 #### [facility] [address] [place], [address] BASIC METABOLIC Collected: 11/22/2017 Status: F Source: [place] PROFILE (BMP) 6:08 AM [facility] REPOSITORY TYPE CODE TESTS RESULT OUT OF [...] GAP 8 Performed By: #### L500.2500 #### [facility] [address] [place], [address] PROTHROMBIN TIME W/INR Collected: 11/22/2017 Status: F Source: [place] 6:08 AM [facility] REPOSITORY TYPE CODE TESTS RESULT OUT OF RANGE REFERENCE UNITS LAB L300.4150 11.7-14.9 SECONDS Normal PROTIME 14.5 LAB L300.4200 Normal INR 1.1 Performed By: #### L300.3900 #### [facility] [address] [place], [address] OPERATIVE REPORT Observed: 11/21/2017 Status: F Source: [place] 2:09 PM [facility] REPOSITORY [facility] Medical Records Department [address] [place] [address] Operative Report 11/21/17 1020 MR#: [id number] Acct: [id number] Name: SHARRON WILHELM Rep #: [id number] : 1955 62 From: Lai Fernandez MD PCP: Nanette Lopez MD Status: ADM IN Y Location: [facility] [place] [id number] Report of Operation Date of Procedure: 11/21/17 Pre-Operative Diagnosis: Right hip primary osteoarthritis Post-Operative Diagnosis: Right hip primary osteoarthritis Surgery/Procedure Performed:: Right direct anterior total hip replacement Description of Surgical Findings:: Stable hip with equal leg length neurosurgical nurse practitioner: Magdaleno Spicer Type of Anesthesia:: Spinal Anesthesiologist: [...] trident acetabular shell size 56 mm 3. Natalie X3 polyethylene f 4. Maramec Biolox delta 36mm, 0mm femoral head Brief [...] awakened by anesthesia and transferred to the [facility]. Patient was then transferred to the PACU for recovery. Postoperative plan: Patient will get 24 hours postop antibiotics. Patient will get in-house physical therapy and will be weight-bear as tolerated. Patient will follow up in office in 2 weeks for a wound check and x-rays. During the course of the procedure the physician front end assistant played a vital role. His intimate [...] the joint and trials intraoperatively. Grafts/Implants Used: Maramec Anato - Complications none - Admit VTE Documentation VTE Present on Admission: No VTE Mechan Device Prophylaxis: SCD's, Thigh High WILL Hose VTE Pharm Prophylaxis ordered?: Yes 11/21/17 1409 <Electronically signed by Lai Fernandez MD> Date Lai Fernandez MD CC: Nanette Lopez MD; Lai Fernandez MD Signed PROTIME W/INR Collected: 11/21/2017 Status: F Source: [place] 11:14 AM [facility] REPOSITORY TYPE CODE TESTS RESULT OUT OF RANGE REFERENCE UNITS LAB L9200.1001 11.9-14.4 SEC Normal PROTIME ISTAT 12.7 Result Comment: Reference Range 11.9 - 14.4 LAB L9200.2000 Normal INR ISTAT 1.10 Result Comment: Critical Value > 3.5 Performed By: #### L9200.0000 #### [facility] Point of Care [address] [place] [address] HIP MIN 2 VIEWS Observed: 11/21/2017 Status: F Source: [place] (PORTABLE) 6:52 AM [facility] REPOSITORY [facility] Imaging Services [address] [place] [address] Hip Min 2 Views (Portable) MR#: [id number] Acct: [id number] Name: SHARRON WILHELM Rep #: [id number] : 1955 M 62 From: Valeriano Zuleta MD PCP: Nanette Lopez MD Status: ADM IN Study: Hip Min 2 Views (Portable) Date of Exam: 11/21/17 Exam# [id number] Ordering Dr: Lai Fernandez MD STUDY: X-RAY [...] CC: Nanette Lopez MD; Lai Fernandez MD X Ray Equipment Mechanic: Signed HIP 1 VIEW WITH Observed: 11/21/2017 Status: F Source: [place] PELVIS 12:02 AM [facility] REPOSITORY [facility] Imaging Services [address] [place] [address] Hip 1 view with Pelvis MR#: [id number] Acct: [id number] Name: SHARRON WILHELM Rep #: [id number] : 1955 M 62 From: Sukumar Adkins MD PCP: Nanette Lopez MD Status: ADM IN Study: Hip 1 view with Pelvis Date of Exam: 11/21/17 Exam# [id number] Ordering Dr: Lai Fernandez MD STUDY: X-RAY [...] CC: Nanette Lopez MD; Lai Fernandez MD X Ray Equipment Mechanic: Signed ECHOCARDIOGRAM COMPLETE Observed: 11/09/2017 Status: F Source: [place] 5:52 PM [facility] REPOSITORY [facility] Cardiovascular Services [address] [place] [address] Echo Complete 11/09/17 1412 MR#: [id number] Acct: [id number] Name: SHARRON WILHELM Rep #: [id number] : 1955 62 From: Judson Guzman MD Attending Dr: Nanette Cullen NP Status: REG CLI Ordering Dr: Nanette Cullen COTTON BUYER-C Date: 11/09/17 Location: [facility] Sex: M C Admitted: Reason For Study: [...] 1752 Date Judson Guzman MD CC: REMBERTO Cullen; Nanette Lopez MD Date Dictated: 11/09/17 1412 Date Transcribed: 11/09/171751 X Ray Equipment Mechanic: Signed HISTORY AND PHYSICAL Observed: 11/06/2017 Status: F Source: [place] EXAM 11:25 AM [facility] REPOSITORY [facility] Medical Records Department [address] [place] [address] History and Physical 11/06/17 0854 MR#: [id number] Acct: [id number] Name: SHARRON WILHELM Rep #: [id number] : 1955 62 From: Magdaleno Spicer PA-C PCP: Nanette Lopez MD Status: PRE IN Y Location: [facility] [place] History and Physical DATE OF SURGERY: 11/21/2017 [...] is currently undergoing preoperative clearance by his research and development engineer Dr. Alvarado. Anticipate stopping Coumadin 5 days [...] touch. IMAGING STUDIES: X-rays were obtained at [facility] [place] on November 06, 2017 including AP pelvis, [...] 11/06/2017 Status: F Source: [place] 10:40 AM [facility] REPOSITORY TYPE CODE TESTS RESULT OUT OF [...] Lymph 1.47 Performed By: #### L100.0100 #### [facility] [address] [facility] [place], [place], [address] BASIC METABOLIC Collected: 11/06/2017 Status: F Source: [place] PROFILE (BMP) 10:40 AM [facility] REPOSITORY TYPE CODE TESTS RESULT OUT OF [...] GAP 8 Performed By: #### L500.2500 #### [facility] [address] [facility] [place], [address] Observed: 11/06/2017 Status: F Source: [place] MRSA/SAID SCREEN 10:40 AM [facility] REPOSITORY MRSA/SAID SCRN S. AUREUS S. aureus Positive MRSA MRSA Negative Performed By: #### M100.651 #### [facility] [address] [place], [address] ALLERGIES ALLERGIES DATE TYPE / CODE NAME / CODE REACTION SEVERITY SOURCE 04/20/2018 Drug oxycodone/F0 Confused, SV [facility] Allergy/416 [id number](RXN disoriented Hospital 234431(SNOM ORM) Repository ED CT) 04/20/2018 Drug scopolamine/ Confused, [facility] Allergy/416 [id number](R disoriented Hospital 917284(SNOM XNORM) Repository ED CT) 11/06/2017 Drug No Known Unknown [facility] Allergy/416 Allergies/F0 Hospital [id number](SNOM [id number](RXN Repository ED CT) ORM) ENCOUNTERS ENCOUNTERS ADMIT/DISCHARGE ACCOUNT ADMITTING ENCOUNTER LOCATION SOURCE NUMBER CLASS 08/31/2018 [id number] Ambulatory Alfonso Al[place] 3 [facility] ing:LAB Repository 07/27/2018/ [id number] Ambulatory Alfonso [place] 8 4 [facility] ing:LAB Repository 07/04/2018/ [id number] Ambulatory [place] 8 8 [facility] ing:LAB Repository 05/25/2018/ [id number] Ambulatory [place] 8 7 [facility] ing:LAB Repository 04/23/2018 [id number] Ambulatory BMSBuilding:B [place] 4 [facility] Repository 04/20/2018/ [id number] Ambulatory BMSBuilding:B [place] 8 7 [facility] Repository 04/19/2018/ [id number] Ambulatory [place] 8 7 [facility] ing:LAB Repository 04/18/2018 [id number] Ambulatory BMSBuilding:B [place] 9 [facility] Repository 02/02/2018/ [id number] Ambulatory [place] 8 5 [facility] ing:LAB Repository 01/25/2018/ [id number] Ambulatory [place] 8 2 [facility] ing:PT Repository 01/12/2018/ [id number] Ambulatory Alfonso [place] 8 2 [facility] ing:LAB Repository 12/08/2017/ [id number] Ambulatory [place] 8 8 [facility] ing:LAB Repository 11/21/2017/ [id number] Jim, Inpatient [place] 8 5 Lai Encounter [facility] ing:YL2Nhuh: Repository [id number]: 1 11/21/2017 [id number] Jim, Ambulatory BMSBuilding:B [place] 3 Lai AYALA.[facility] Repository 11/21/2017 [id number] Jim, Ambulatory BMSBuilding:B [place] 8 Lai AYALA.[facility] Repository 11/21/2017 [id number] Jim, Ambulatory BMSBuilding:B [place] 5 Lai AYALA.[facility] Repository 11/09/2017 [id number] Ambulatory [place] 0 [facility] ing:CVS Repository 11/09/2017 [id number] Ambulatory BMSBuilding:W [place] 6 [facility] Repository PAYERS PAYERS ENCOUNTER GUARANTOR PAYER SUBSCRIBER SOURCE 08/31/2018 SHARRON Butterfield [place] [id number] Insurance:ANTHEMPolic KOBILARCIKDOB: [facility] NANETTE REYfranky Number: [id number] [facility] [address]Kgr: [id number] Repository Date:3569-55-24[address], [place] [address]KF: 08/31/2018 Secondary NOT GIVENUNK [place] Insurance:SELF PAY [facility] Number: Effective Repository Date:2018-08-13 07/27/2018 SHARRON Butterfield Primary SHARRON Butterfield [place] [id number] Insurance:ANTHEMPolic KOBILARCIKDOB: [facility] NANETTE SCHULTENEW [facility] Number: [id number] Defiance Indian Hospital [address]Kgx: [id number] Repository Date:6675-36-90[address] () [address]SEBUWYEVALERIO CALDERA [address]ZS: 07/27/2018 Secondary NOT GIVENUNK [place] Insurance:SELF PAY [facility] Number: Effective Repository Date:2018-07-16 07/04/2018 SHARRON Butterfield Primary SHARRON Butterfield [place] [id number] Insurance:ANTHEMPolic KOBILARCIKDOB: [facility] NANETTE [facility], y Number: [id number] Defiance Indian Hospital [address]Oxp: [id number] Repository Date:8404-76-95[address] () [address]XTOSLSRVALERIO CALDERA [address]QI: 07/04/2018 Secondary NOT GIVENUNK [place] Insurance:SELF PAY [facility] Number: Effective Repository Date:2018-06-14 05/25/2018 SHARRON Butterfield Primary SHARRON Butterfield [place] [id number] Insurance:ANTHEMPolic KOBILARCIKDOB: [facility] NANETTE [facility], y Number: [id number] Defiance Indian Hospital [address]Qjk: [id number] Repository Date:6311-77-81[address] () [address]LYCXEFH, [place] [address]OW: 05/25/2018 Secondary NOT GIVENUNK [place] Insurance:SELF PAY [facility] Number: Effective Repository Date:2018-05-16 04/23/2018 SHARRON T Primary NOT GIVENUNK [place] [id number] Insurance:SELF PAY [facility] [address]Mrx: Number: Effective Repository Date:2017-07-28 () 04/20/2018 SHARRON Butterfield Primary SHARRON Butterfield [place] [id number] Insurance:ANTHEMPolic KOBILARCIKDOB: [facility] NANETTE [facility], y Number: [id number] Defiance Indian Hospital [address]Yit: [id number] Repository Date:9507-44-89JB [address] () [address]326YFRCJOW, [place] [address]VM: 04/20/2018 Secondary NOT GIVENUNK [place] Insurance:SELF PAY [facility] Number: Effective Repository Date:2018-04-20 04/19/2018 SHARRON Butterfield Primary SHARRON T [place] [id number] Insurance:ANTHEMPolic KOBILARCIKDOB: [facility] NANETTE ACCHELENEW [facility], y Number: [id number] Defiance Indian Hospital [address]Isg: [id number] Repository Date:5639-27-30QF [address] () [address], [place] [address]UU: 04/19/2018 Secondary NOT GIVENUNK [place] Insurance:SELF PAY [facility] Number: Effective Repository Date:2018-02-09 04/18/2018 SHARRON Butterfield Primary SHARRON Butterfield [place] [id number] Insurance:ANTHEMPolic KOBILARCIKDOB: [facility] NANETTE [facility], y Number: [id number] Defiance Indian Hospital [address]Kwf: [id number] Repository Date:0558-09-38RE [address] () 429172UJBYLOO, [place] [address]UE: 04/18/2018 Secondary NOT GIVENUNK [place] Insurance:SELF PAY [facility] Number: Effective Repository Date:2018-04-18 02/02/2018 SHARRON Greer Primary SHARRON Butterfield [place] [id number] Insurance:ANTHEMPolic KOBILARCIKDOB: [facility] NANETTE [facility], y Number: [id number] Defiance Indian Hospital [address]Kzs: [id number] Repository Date:2667-88-70FJ [address] () [address]RISBPVH, [place] [address]FZ: 02/02/2018 Secondary NOT GIVENUNK [place] Insurance:SELF PAY [facility] Number: Effective Repository Date:2018-01-18 01/25/2018 SHARRON Greer Primary SHARRON Greer [place] [id number] Insurance:ANTHEMPolic KOBILARCIKDOB: [facility] NANETTE [facility], y Number: [id number] Defiance Indian Hospital [address]Lmr: [id number] Repository Date:1561-47-17QA [address] () [address]GFTIOPQ, [place] [address]UX: 01/25/2018 Secondary NOT GIVENUNK [place] Insurance:SELF PAY [facility] Number: Effective Repository Date:2017-11-23 01/12/2018 [facility] [place] [id number] Insurance:ANTHEMPolic KOBILARCIKDOB: [facility] NANETTE [place], y Number: [id number] Defiance Indian Hospital [address]Pvp: [id number] Repository Date:7007-63-70RH [address] () [address]956[address]HJTDVJE, [place] [address]JG: 01/12/2018 Secondary NOT GIVENUNK [place] Insurance:SELF PAY [facility] Number: Effective Repository Date:2017-12-12 12/08/2017 [facility] [place] [id number] Insurance:ANTHEMPolic KOBILARCIKDOB: [facility] NANETTE [place], y Number: [id number] Defiance Indian Hospital [address]Chf: [id number] Repository Date:0123-23-93DJ [address] () [address]258[address]I, [place] [address]DF: 12/08/2017 Secondary NOT GIVENUNK [place] Insurance:SELF PAY [facility] Number: Effective Repository Date:2017-09-19 11/21/2017 [facility] [id number] Insurance:ANTHEMPolic KOBILARCIKDOB: [facility] NANETTE [place], y Number: [id number] Defiance Indian Hospital [address]Xvw: [id number] Repository Date:3956-66-28BU [address] () [address]15460NRVCHKO, [place] [address]RB: 11/21/2017 Secondary NOT GIVENUNK [place] Insurance:SELF PAY [facility] Number: Effective Repository Date:2017-10-24 11/21/2017 SHARRON Butterfield Primary SHARRON Butterfield [place] [id number] Insurance:ANTHEMPolic KOBILARCIKDOB: [facility] NANETTE ERY, y Number: [id number] Defiance Indian Hospital [address]Spx: [id number] Repository Date:9609-49-54FB [address] () [address]FTXXWRW [place] [address]YM: 11/21/2017 Secondary NOT GIVENUNK [place] Insurance:SELF PAY [facility] Number: Effective Repository Date:2017-11-21 11/21/2017 SHARRON Butterfield Primary SHARRON Butterfield [place] [id number] Insurance:ANTHEMPolic KOBILARCIKDOB: [facility] [place], y Number: [id number] Defiance Indian Hospital [address]Tli: [id number] Repository Date:7007-41-09LL [address] () 419415MQZSEVY [place] [address]OF: 11/21/2017 Secondary NOT GIVENUNK [place] Insurance:SELF PAY [facility] Number: Effective Repository Date:2017-11-21 11/21/2017 SHARRON Butterfield Primary SHARRON Butterfield [place] [id number] Insurance:ANTHEMPolic KOBILARCIKDOB: [facility] [place], y Number: [id number] Defiance Indian Hospital [address]Ubs: [id number] Repository Date:5643-10-05WR [address] () 015742MZYQATX, [place] [address]AX: 11/21/2017 Secondary NOT GIVENUNK [place] Insurance:SELF PAY [facility] Number: Effective Repository Date:2017-11-21 11/09/2017 SHARRON Butterfield Primary SHARRON Butterfield [place] [id number] Insurance:ANTHEMPolic KOBILARCIKDOB: [facility] [place], y Number: [id number] Defiance Indian Hospital [address]Gyq: [id number] Repository Date:9585-09-44HX [address] () 042112KOCWVDH, [place] [address]HY: 11/09/2017 Secondary NOT GIVENUNK [place] Insurance:SELF PAY [facility] Number: Effective Repository Date:2017-10-27 11/09/2017 SHARRON T Primary SHARRON Hamilton [id number] Insurance:ANTHEMPolic KOBILARCIKDOB: [facility] franky BRYSON Number: [id number] Defiance Indian Hospital [address]Zib: [id number] Repository Date:7668-63-25DJ [address] () [address]VWSVKOQ, [place] [address]UE: 11/09/2017 Secondary NOT GIVENUNK [place] Insurance:SELF PAY [facility] Number: Effective Repository Date:2017-11-09
== END 2018-08-31 10:41 | disposition home or self-care (01) ==
LOC: LAB 09:41
PROVIDERS: Family Provider Family Medicine; PCP Family Medicine; Referring Provider Internal Medicine Cardiovascular Disease; Visit Provider Internal Medicine Cardiovascular Disease
DX: I48.0 Paroxysmal atrial fibrillation (principal); Z79.01 Long term (current) use of anticoagulants
CPT/HCPCS: 36415; 85610

== ENCOUNTER 2018-09-28 08:02 | Outpatient (RCR) | payer BC, SELFPAY ==
[2018-04-20 09:12] VITALS: BMI 25.2
[2018-09-28 09:29] LABS: International Normalized Ratio 2.8; Prothrombin Time (Protime)PT. 29.7 SECONDS (11.7-14.9)
== END 2018-10-11 13:56 | disposition home or self-care (01) ==
LOC: LAB 08:02
PROVIDERS: Family Provider Family Medicine; PCP Family Medicine; Referring Provider Internal Medicine Cardiovascular Disease; Visit Provider Internal Medicine Cardiovascular Disease
DX: I48.0 Paroxysmal atrial fibrillation (principal); Z79.01 Long term (current) use of anticoagulants
CPT/HCPCS: 36415; 85610

== ENCOUNTER 2018-10-26 09:25 | Outpatient (RCR) | payer OTHER, SELFPAY ==
[2018-04-20 09:12] VITALS: BMI 25.2
[2018-10-26 10:05] LABS: International Normalized Ratio 2.3; Prothrombin Time (Protime)PT. 25.5 SECONDS (11.7-14.9)
== END 2018-10-26 10:00 | disposition home or self-care (01) ==
LOC: LAB 09:25
PROVIDERS: Family Provider Family Medicine; PCP Family Medicine; Referring Provider Internal Medicine Cardiovascular Disease; Visit Provider Internal Medicine Cardiovascular Disease
DX: I48.0 Paroxysmal atrial fibrillation (principal); Z79.01 Long term (current) use of anticoagulants
CPT/HCPCS: 36415; 85610

== ENCOUNTER 2019-01-04 08:23 | Outpatient (RCR) | payer OTHER, SELFPAY ==
[2018-04-20 09:12] VITALS: BMI 25.2
[2019-01-04 09:02] LABS: Prothrombin Time (Protime)PT. 31.3 SECONDS (11.7-14.9)
== END 2019-01-04 10:00 | disposition home or self-care (01) ==
LOC: LAB 08:23
PROVIDERS: Family Provider Family Medicine; PCP Family Medicine; Referring Provider Internal Medicine Cardiovascular Disease; Visit Provider Internal Medicine Cardiovascular Disease
DX: I48.0 Paroxysmal atrial fibrillation (principal); Z79.01 Long term (current) use of anticoagulants
CPT/HCPCS: 36415; 85610

== ENCOUNTER 2019-03-07 07:47 | Outpatient (RCR) | payer OTHER, SELFPAY ==
[2018-04-20 09:12] VITALS: BMI 25.2
[2019-03-07 08:55] LABS: International Normalized Ratio 3.5; Prothrombin Time (Protime)PT. 35.7 SECONDS (11.7-14.9)
== END 2019-03-07 08:00 | disposition home or self-care (01) ==
LOC: LAB 07:47
PROVIDERS: Family Provider Family Medicine; PCP Family Medicine; Referring Provider Internal Medicine Cardiovascular Disease; Visit Provider Internal Medicine Cardiovascular Disease
DX: I48.0 Paroxysmal atrial fibrillation (principal); Z79.01 Long term (current) use of anticoagulants
CPT/HCPCS: 36415; 85610

== ENCOUNTER 2019-03-29 07:54 | Outpatient (RCR) | payer OTHER, SELFPAY ==
[2018-04-20 09:12] VITALS: BMI 25.2
[2019-03-29 08:51] LABS: International Normalized Ratio 2.5; Prothrombin Time (Protime)PT. 26.9 SECONDS (11.7-14.9)
== END 2019-03-29 10:00 | disposition home or self-care (01) ==
LOC: LAB 07:54
PROVIDERS: Family Provider Family Medicine; PCP Family Medicine; Referring Provider Internal Medicine Cardiovascular Disease; Visit Provider Internal Medicine Cardiovascular Disease
DX: I48.0 Paroxysmal atrial fibrillation (principal); Z79.01 Long term (current) use of anticoagulants
CPT/HCPCS: 36415; 85610

== ENCOUNTER → 2019-05-09 08:47 | Outpatient (CLI) | payer OTHER, SELFPAY ==
[2018-04-20 09:12] VITALS: BMI 25.2
[2019-05-09 10:41] LABS: Anion Gap 8 (5-15); BUN 11 mg/dL (7-18); BUN/Creat Ratio 12.1 RATIO (10-20); Calcium,Total 8.6 mg/dL (8.5-10.1); Chloride 105 mmol/L (98-107); Creatinine, Serum 0.91 mg/dL (0.70-1.30); EST Glomerular Filtration Rate 89 mL/min (>60); Est Glom Filt Rate - Afr Amer 108 mL/min (>60); Glucose 89 mg/dL (74-106); PSA,Total - Annual Screen 1.75 ng/mL (0.00-4.00); Potassium 3.9 mmol/L (3.5-5.1); Sodium Level 138 mmol/L (136-145)
== END ==
PROVIDERS: Family Provider Family Medicine; PCP Family Medicine; Referring Provider Family Medicine; Visit Provider Family Medicine
DX: N32.81 Overactive bladder (principal); Z12.5 Encounter for screening for malignant neoplasm of prostate
CPT/HCPCS: 36415; 80048; 84153; G0103

== ENCOUNTER 2019-05-31 08:02 | Outpatient (RCR) | payer MEDICARE, OTHER, SELFPAY ==
[2018-04-20 09:12] VITALS: BMI 25.2
[2019-05-31 09:32] LABS: International Normalized Ratio 1.8; Prothrombin Time (Protime)PT. 20.6 SECONDS (11.7-14.9)
== END 2019-05-31 18:00 | disposition home or self-care (01) ==
LOC: LAB 08:02
PROVIDERS: Family Provider Family Medicine; PCP Family Medicine; Referring Provider Internal Medicine Cardiovascular Disease; Visit Provider Internal Medicine Cardiovascular Disease
DX: I48.0 Paroxysmal atrial fibrillation (principal); Z79.01 Long term (current) use of anticoagulants
CPT/HCPCS: 36415; 85610

== ENCOUNTER 2019-06-20 07:30 | Outpatient (RCR) | payer MEDICARE, OTHER, SELFPAY ==
[2018-04-20 09:12] VITALS: BMI 25.2
[2019-06-20 09:27] LABS: International Normalized Ratio 1.8; Prothrombin Time (Protime)PT. 20.4 SECONDS (11.7-14.9)
== END 2019-06-20 18:00 | disposition home or self-care (01) ==
LOC: LAB 07:30
PROVIDERS: Family Provider Family Medicine; PCP Family Medicine; Referring Provider Internal Medicine Cardiovascular Disease; Visit Provider Internal Medicine Cardiovascular Disease
DX: I48.0 Paroxysmal atrial fibrillation (principal); Z79.01 Long term (current) use of anticoagulants
CPT/HCPCS: 36415; 85610

== ENCOUNTER → 2019-07-16 06:31 | Outpatient (CLI) | payer MEDICARE, OTHER, SELFPAY ==
[2019-06-21 10:24] VITALS: BMI 25.2
--- NOTE | 2019-07-16 12:59 | STRESSREP ---
Stress Test Report Date: 07-16-19 Procedure: Exercise tolerance test/imaging study Indications: Chest pain; paroxysmal atrial fibrillation; mitral valve prolapse Consent: Per the patient Procedure: The patient exercised on a Julio Cesar protocol for 7 minutes and 30 seconds completing Stage II and 1 minute and 30 seconds of Stage III achieving a peak heart rate of 169 bpm (109 % predicted maximal heart rate) with a peak blood pressure 180/80 mmHg and a peak MET capacity of 9 METs. The baseline ECG demonstrated sinus rhythm; incomplete left bundle branch block pattern. The peak exercise ECG demonstrated no obvious ECG changes. There was a rare PVC during pretest and during recovery. The functional capacity was considered good. There was no complaint of chest discomfort during exercise or recovery. The examination was discontinued secondary to dyspnea. Impression: 1. Technically adequate (percent predicted maximal heart rate greater than 85%) exercise tolerance test 2. Peak exercise ECG with no obvious ECG changes 3. There was a rare PVC pretest and during recovery 4. Nuclear images pending Myocardial perfusion imaging study: Technique: The patient was injected with 10.0 mCi of technetium 99m Cardiolite and subsequently rest SPECT Cardiolite nuclear imaging was obtained in the horizontal long, vertical long, and short axis views. The patient exercised on a Julio Cesar protocol for 7 minutes and 30 seconds completing Stage II and 1 minute and 30 seconds of Stage III achieving a peak heart rate of 169 bpm (109 % predicted maximal heart rate) with a peak blood pressure 180/80 mmHg and a peak MET capacity of 9 METs. The patient was injected with 35.0 mCi of technetium 99m Cardiolite and subsequently stress SPECT Cardiolite nuclear imaging was obtained in the horizontal long, vertical long, and short axis views. A gated Cardiolite study at peak stress was obtained. Interpretation: Rest and stress SPECT Cardiolite nuclear imaging status post realignment, normalization, and attenuation correction, demonstrates the appearance of relative uniform tracer uptake and myocardial perfusion appearing within normal limits. There is end systolic thickening and brightening. The gated Cardiolite study demonstrates myocardial thickening and inward wall motion. The reported LVEF is 73 %. Impression: 1. Rest and stress SPECT Cardiolite nuclear imaging demonstrate relative uniform tracer uptake and myocardial perfusion appearing within normal limits. 2. The gated Cardiolite study reports an LVEF of 73 %. This note was generated with [employer] software. It may contain incorrect words, spelling, and punctuation that were not noted in checking the note before signing.
== END ==
PROVIDERS: Family Provider Family Medicine; PCP Family Medicine; Referring Provider Internal Medicine Cardiovascular Disease; Visit Provider Internal Medicine Cardiovascular Disease
DX: I48.0 Paroxysmal atrial fibrillation (principal); R07.9 Chest pain, unspecified
CPT/HCPCS: 78452; 93017; A9500; A4216

== ENCOUNTER → 2020-01-24 10:29 | Outpatient (CLI) | payer MEDICARE, OTHER, SELFPAY ==
[2019-06-21 10:24] VITALS: BMI 25.2
--- NOTE | 2020-01-24 10:33 | RAD_ITS ---
STUDY: X-RAY - CERVICAL SPINE REASON FOR EXAM: Male, 64 years old. LEFT SIDED NECK PAIN TECHNIQUE: 3 view(s) of the cervical spine were obtained. COMPARISON: None FINDINGS: Normal anterior atlantoaxial articulation. Normal odontoid process. There are mild expected age-appropriate changes. Normal cervical lordosis. Normal vertebral bodies and endplates. Normal disc space heights. Normal visualized intervertebral neuroforamina. The soft tissue structures are unremarkable. RAD/Cerv Spine 2 or 3 Views IMPRESSION: Unremarkable for age x-ray examination of the visualized cervical spine. Electronically Signed: Loree Carey, at 18:29 EDT Tel , Service support ,
== END ==
PROVIDERS: PCP Family Medicine; Referring Provider Family Medicine; Visit Provider Family Medicine
DX: M54.2 Cervicalgia (principal)
CPT/HCPCS: 72040

== ENCOUNTER 2020-03-11 08:00 | Outpatient (RCR) | payer MEDICARE, OTHER, SELFPAY ==
[2019-06-21 10:24] VITALS: BMI 25.2
--- NOTE | 2020-01-29 09:57 | HP.PTEVAL ---
Patient's Visit Information SHARRON WILHELM is a 64 year old M referred to Physical Therapy by Dr. Dandre Stark MD with a diagnosis of Neck Pain. Date of Evaluation: 01/29/20 Physical Therapist: Monse Roman DPT - Visit Plan Frequency: 3x /Week Duration: 3 Weeks Plan: Ultrasound and manual therapy. Strength of scapula - Subjective Patient reports that he has had nagging neck pain since August- no changes- insidious onset- feels that it maybe stress related. Pain is located on the left side- will radiate into the occiput and will rarely get a slight headache. Agg: turning suddenly- or pounding/stepping hard on the left LE. Eases: heat Worst: 8/10 Best: 6/10 Depending on the movement. Describes the pain as sharp when looking down/up. When he is just sitting he knows its there. No weakness in the left arm or decreasd finger dexterity. When he does get a headache its on the left side in the back- No blurred vision or dizziness. X-rays but no MRI. Sleep: disturbed- hard to get comfortable side and back- switching pillows around to try to get comfortable. No N/T. 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 PMHx: A-fib, CHF, low ejection fraction, blood clot in his heart Meds: see list. No pacemaker Not sedentary - Objective Posture: FH, RS, Increased kyphosis- severe guarding of the cervical spine. Gait: decreased arm swing and trunk rotation. Palpation: tender along paraspinals from occiput to AC joint left>right. Suboccipital tightness bilateral. ROM: Shoulder/Wrist/hand: WNL Cervical:Flexion: 20 degrees Extn: 10 degrees SB: 20 degrees with more pain to the left. Rot: 40 degrees- AROM all with significant discomfort. PROM: increased ROM with less pain but guarded- tested in supine. Strength: Isometrics: 4/5 with pain, Shoulder: 4+/5 throughout Scap: fair. Special Test: Spurlings: negative, Neural Tension: negative, Distraction: negative- no change in s/s with the exception of ROM - Goals Goal 1:: Patient will be I with HEP and progression Goal Time Frame: 4-6 Weeks Goal 2:: Patient will demo full AROM of the cervical spine Goal Time Frame: 4-6 Weeks Goal 3:: Patient will maintain proper posture t/o tx session to demo increased scap s/s Goal Time Frame: 4-6 Weeks Goal 4:: Patient will report no pain for 1 week Goal Time Frame: 4-6 Weeks - Rehabilitation Potential Physical Therapy Diagnosis: Patient presents with hypomobiliy- he has decreased ROM, strength and muscular endurance leading to poor posture and increased pain with ADL's. Rehabilitation Potential: Fair - Anticipated Interventions Patient/Client Instruction: Educate patient on: Benefits of Fitness Program Therapeutic Exercise to Include: Strength training, Body mechanics, Postural training, Flexibilty training, Neuromotor development, Passive ROM, Active ROM, Scapular Strength/Stabilization For the Purpose of:: To improve muscle performance and motor function TENS: Yes Cryotherapy (ice pack, ice massage): Yes Thermo therapy (hot pack): Yes Ultrasound (thermal/non thermal): Yes For the Purpose of:: To improve muscle performance and motor function Thank you for the opportunity to evaluate your patient. For Medicare and Medicare HMO plans, please review the plan of care and approve it. It will need to be FAXED BACK to us at [phone] for Medicare purposes. For Medicare only, by signing this I certify the plan of care. Please let me know if there are questions or concerns regarding this plan of care. Physician Signature: Date:
--- NOTE | 2020-02-19 09:02 | HP.PTREVAL ---
Dr. Dandre Stark MD, It has been my pleasure to treat SHARRON WILHELM over the last 10 visits for Neck Pain. Please see the progress note below for an update on the physical therapy plan of care! Subjective: Patient reports that he is better- he complains less. Markus reports more range of motion- with less pain. In the morning painful but because he just woke up- the longer her goes on the better. Headed on vacation next week. Still has a little bit of pain with flexion/extn. Objective/Function: Posture: FH, RS, Increased kyphosis- less guarding of the cervical spine Gait: good arm swing and trunk rotation. Palpation: increased UT tightness right>left Suboccipital tightness bilateral. ROM: Shoulder/Wrist/hand: WNL Cervical:Flexion: chin to chest Extn: 20 degrees SB: 30 degrees with more pain to the left. Rot: 55 degrees- AROM flexion/extn with mild discomfort. Strength: Isometrics: 4+/5 with no pain, Shoulder: 5/5 throughout Scap: fair. Special Test: Spurlings: negative, Neural Tension: negative, Distraction: negative- no change in s/s with the exception of ROM Plan Plan: Continue POC of ultrasound and postural stabillization exericses when pt returns from vacation 2x a week for 4 weeks Goals Goal 1:: Patient will be I with HEP and progression Goal Time Frame: 4-6 Weeks Goal Progress: Progressing Goal 2:: Patient will demo full AROM of the cervical spine Goal Time Frame: 4-6 Weeks Goal Progress: Progressing Goal 3:: Patient will maintain proper posture t/o tx session to demo increased scap s/s Goal Time Frame: 4-6 Weeks Goal Progress: Progressing Goal 4:: Patient will report no pain for 1 week Goal Time Frame: 4-6 Weeks Goal Progress: Progressing Anticipated Interventions Patient/Client Instruction: Educate patient on: Benefits of Fitness Program Therapeutic Exercise to Include: Strength training, Body mechanics, Postural training, Flexibilty training, Neuromotor development, Passive ROM, Active ROM, Scapular Strength/Stabilization For the Purpose of:: To improve muscle performance and motor function TENS: Yes Cryotherapy (ice pack, ice massage): Yes Thermo therapy (hot pack): Yes Ultrasound (thermal/non thermal): Yes For the Purpose of:: To improve muscle performance and motor function Please do not hesitate to contact me at [phone] by phone or if you have questions or concerns regarding this new plan of care! Sincerely, JOS AlexT
--- NOTE | 2020-03-11 09:00 | HP.PTDCSUM ---
It has been my pleasure to treat SHARRON WILHELM referred by Dr. Dandre Stark MD, with the diagnosis of Neck Pain for a total of 14 visit(s). Discharge Date: Please see the following information for a summary of their discharge status. Subjective: I am having a pretty good day today. Symptoms just come and go. I saw the doctor the other day. She recommended that I see pain management (Dr. Martinez). Planning to cancel remainder of appointments for PT though. L c-spine Pain Intensity (Out of 10): 4 % Improvement: 60 Objective/Function: Continues to have ebbs and flows with recovery process. Tolerated all of hte above very well. Plans to cancel remainder of physcial therapy sessions and schedule an appointment with pain management. Goal 1:: Patient will be I with HEP and progression Goal Progress: Progressing Goal 2:: Patient will demo full AROM of the cervical spine Goal Progress: Progressing Goal 3:: Patient will maintain proper posture t/o tx session to demo increased scap s/s Goal Progress: Progressing Goal 4:: Patient will report no pain for 1 week Goal Progress: Progressing Plan: Dishcarge from physical therapy. If there are questions or concerns regarding this patient's physical therapy, please feel free to call me at [phone]. Thank you for the referral of this patient. Sincerely, JOS AlexT
== END 2020-03-11 10:07 | disposition home or self-care (01) ==
LOC: PT 08:00
PROVIDERS: PCP Family Medicine; Referring Provider Family Medicine; Visit Provider Family Medicine
DX: M54.2 Cervicalgia (principal)
CPT/HCPCS: 97014; 97035; 97110; 97140; 97162; 97164; G0283

== ENCOUNTER 2020-10-12 09:56 | Outpatient (RCR) | payer MEDICARE, OTHER, SELFPAY ==
[2020-09-17 09:42] VITALS: BMI 27.2
== END 2020-10-12 23:59 ==
LOC: IMMUN 09:56
PROVIDERS: PCP Family Medicine; Referring Provider Family Medicine; Visit Provider Family Medicine
DX: Z23 Encounter for immunization (principal)
CPT/HCPCS: 0011A; 0012A; 91301

== ENCOUNTER → 2020-11-26 12:43 | Outpatient (CLI) | payer MEDICARE, OTHER, SELFPAY ==
[2020-09-17 09:42] VITALS: BMI 27.2
--- NOTE | 2020-11-26 12:48 | RAD_ITS ---
STUDY: X-RAY - LEFT HAND, ATTENTION FIRST FINGER REASON FOR EXAM: Male, 65 years old. Thumb pain. TECHNIQUE: 3 view(s) of the finger were obtained. COMPARISON: None. FINDINGS: Generalized osteopenia. Mild arthrosis of the radial carpal row of the wrist. Moderate to severe arthrosis of the first CMC joint. Moderate loss of articular cartilage of the MCP and IP joints. RAD/Finger(s) Min 2 Views IMPRESSION: Osteopenia with osteoarthritic changes as described. Electronically Signed: Pedro Corbin MD at 14:26 EDT , Service support ,
== END ==
PROVIDERS: PCP Family Medicine; Referring Provider Family Medicine; Visit Provider Family Medicine
DX: M79.645 Pain in left finger(s) (principal)
CPT/HCPCS: 73140

== ENCOUNTER 2020-12-14 10:30 | Outpatient (RCR) | payer MEDICARE, OTHER, SELFPAY ==
[2020-09-17 09:42] VITALS: BMI 27.2
--- NOTE | 2021-04-05 15:45 | HP.OTDCNRP_ITS ---
SHARRON WILHELM was seen in my office for initial evaluation on 12/01/20. The following Plan of Care was established for this patient: Initial Frequency: 1-2x /Week Initial Duration: 4 Weeks Plan: D/C Anticipated Interventions: A/AAROM/PROM, Strengthening, Modalities, Orthoses, J oint Protection/Energy Conservation, Ergonomic Education, Education re assistive Equipment, Education re Diagnosis This patient was last seen in our office . Pertinent comments regarding their Occupational therapy will appear below: At this point I will be discontinuing this patient from occupational therapy. I would be happy to see this patient again in the future if found appropriate by the physician. Thank you! Kayley Womack, OTR/L, CHT
--- NOTE | 2021-04-05 15:45 | HP.OTEVAL ---
Patient's Visit Information SHARRON WILHELM is a 65 year old M, referred to Occupational Therapy by Dr. Dandre Stark MD, with a diagnosis of left thumb pain. Date of Evaluation: 12/01/20 Occupational Therapist: Kayley Womack, OTR/L, CHT - Subjective This 65 year old male was seen for OT eval with dx of left thumb pain- pt states this has been bothersome for about 2 months- pt states he is attempting to war a thumb brace at night. left thumb pain with daily tasks. - Pain left thumb pain 4 Pain Intensity Range: 1, 4 - ROM Wrist: right 70/65 left 65/45 CMC: right 10 left 20 MP: right 55 left 50 IP: right 57 left 75 - Strength Supervisor Typesetting: right 80# left 75# Lateral Pinch: right 14# left 14# with pain at release Tripod Pinch: right 16# left 12# with deformity - Quick DASH-Disab of Arm,Shoulder& Hand Quick DASH Score: 43.1800 - Goals Goal:: pt will demo a increase in left gynecological assistant by 5# to increase pts ind. with ALDs by d.c. pt will demo use of supportive left thumb brace and demo a increase in left tripod pinch with good thumb alignment by d/c Goal:: pt will report pain no greater than 2/10 with use of left hand with ADLs and IADLs by d.c Goal:: pt will demo understanding of joint protection olimpia. with use of ADls by end of 2nd session. Goal:: pt will demo understanding of using supportive bracing with heavy daily living tasks by d/c Goal:: pt will demo understanding of orthosis use by end of 1st session. pt will demo ind. donning/doffing of orthosis by end of 1st session. - Rehabilitation General Assessment: pt demo with left thumb instability increasing pain with use- Pt demo need for skilled OT services 1-2x week for 4 weeks to ed. pt on joint protection, ed. on ad. eq., thumb stabilization exercises and supportive bracing. Pt demo understanding and agree to POC. Rehabilitation Potential: Fair - Anticipated Interventions A/AAROM/PROM, Strengthening, Modalities, Orthoses, Joint Protection/Energy Conservation, Ergonomic Education, Education re assistive Equipment, Education re Diagnosis - Visit Plan Frequency: 1-2x /Week Duration: 4 Weeks TEXT: Thank you for the opportunity to evaluate your patient. For Medicare and Medicare HMO plans, please review the plan of care and approve it. It will need to be FAXED BACK to us at [phone] for Medicare purposes. Please let me know if there are questions or concerns regarding this plan of care. Physician Signature: Date:
--- NOTE | 2021-04-05 15:46 | HP.OTDCSUM ---
It has been my pleasure to treat SHARRON WILHELM under orders from Dr. Dandre Stark MD, for the diagnosis of left thumb pain for a total of 3 visit(s). Please see the following information for a summary of their discharge status. 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 pt is painful with tripod pinch and lateral pinch resistance- pt continues to demo thumb instability with pinch and telephone lineman tasks - pain with restive pinch- pt continues to have pain with daily use. pt has been ed. on joint protection and use of supportive bracing. pt continues to struggle with pain. rec'd pt to see dr for further evaluation Patient Goals: Decrease Pain, Use Hand/Wrist/Arm Normally Again Goal:: pt will demo a increase in left telephone lineman by 5# to increase pts ind. with ALDs by d.c. pt will demo use of supportive left thumb brace and demo a increase in left tripod pinch with good thumb alignment by d/c Goal:: pt will report pain no greater than 2/10 with use of left hand with ADLs and IADLs by d.c Goal:: pt will demo understanding of joint protection olimpia. with use of ADls by end of 2nd session. Goal:: pt will demo understanding of using supportive bracing with heavy daily living tasks by d/c Goal:: pt will demo understanding of orthosis use by end of 1st session. pt will demo ind. donning/doffing of orthosis by end of 1st session. Plan: D/C If there are questions or concerns regarding this patient's occupational therapy, please fell free to call me at [phone]. Thank you for the referral of this patient. Sincerely, Kayley Womack, OTR/L, CHT
== END 2020-12-14 19:00 | disposition home or self-care (01) ==
LOC: OT 10:30
PROVIDERS: PCP Family Medicine; Referring Provider Family Medicine; Visit Provider Family Medicine
DX: M79.645 Pain in left finger(s) (principal)
CPT/HCPCS: 97035; 97166; 97530; 97760

== ENCOUNTER → 2023-02-07 | Outpatient (CLI) | payer MEDICARE, OTHER, SELFPAY ==
--- NOTE | 2023-02-07 15:03 | ECHOD_ITS ---
Reason For Study: HTN, Precordial pain Procedure This was a 2D Doppler, Color Flow transthoracic echocardiogram. Exam performed in department. Left Ventricle Normal size and thickness. The left ventricular ejection fraction is 65 %. Normal diastology for age. Right Ventricle Normal right ventricle. Atria The left and right atria are normal. Mitral Valve Trivial mitral valve insufficiency. Tricuspid Valve Trivial tricuspid valve insufficiency. Normal pulmonary artery pressure. Aortic Valve Trisinus/trileaflet aortic valve. Mild (1+) aortic valve insufficiency. Pulmonic Valve The pulmonic valve is not well visualized. Great Vessels Mildly dilated aortic root. Pericardium/Pleural No pericardial effusion. MMode/2D Measurements & Calculations LVIDd: 5.0 cm IVSd: 1.0 cm Ao root diam: 4.0 cm LVIDs: 3.4 cm LVPWd: 1.00 cm LA dimension: 3.7 cm RVDd: 4.3 cm FS: 31.9 % LAV(MOD-bp): 51.0 ml LVAd ap4: 37.1 cm2 SV(MOD-sp4): 82.3 ml LAV(MOD-bp) Indexed: 26.2 ml/m2 LVLd ap4: 9.0 cm LAV(MOD-sp2): 62.7 ml EDV(MOD-sp4): 125.3 ml LAV(MOD-sp4): 42.2 ml EDV(sp4-el): 129.7 ml LVAs ap4: 19.7 cm2 LVLs ap4: 7.7 cm ESV(MOD-sp4): 43.0 ml ESV(sp4-el): 42.4 ml EF(MOD-sp4): 65.7 % EF(sp4-el): 67.3 % SV(sp4-el): 87.3 ml LA A4 area: 16.3 cm2 RA A4 area: 23.3 cm2 TAPSE: 2.4 cm Time Measurements MV dec time: 0.29 sec Doppler Measurements & Calculations MV E max joshua: 53.1 cm/sec Lat Peak E' Joshua: 8.5 cm/sec Med Peak E' Joshua: 8.1 cm/sec MV A max joshua: 63.0 cm/sec E/E' lat: 6.3 E/E' med: 6.6 MV E/A: 0.84 MV V2 max: 65.8 cm/sec MV P1/2t max joshua: 59.7 cm/sec Ao V2 max: 107.1 cm/sec MV max P.7 mmHg MV P1/2t: 106.0 msec Ao max P.6 mmHg MV V2 mean: 38.7 cm/sec MV dec slope: 165.0 cm/sec2 Ao V2 mean: 78.5 cm/sec MV mean P.68 mmHg Ao mean P.8 mmHg MV V2 VTI: 27.4 cm MVA(P1/2t): 2.1 cm2 Ao V2 VTI: 26.1 cm AV (velocity ratio): 0.92 AI max joshua: 317.9 cm/sec LV V1 max: 94.0 cm/sec PA V2 max: 87.4 cm/sec AI max P.5 mmHg LV V1 max P.5 mmHg PA V2 mean: 59.8 cm/sec AI dec slope: 90.7 cm/sec2 LV V1 mean P.0 mmHg AI P1/2t: 1027 msec LV V1 mean: 66.3 cm/sec LV V1 VTI: 23.9 cm TR max joshua: 169.4 cm/sec TR max P.5 mmHg ECHO/Echo Complete Interpretation Summary The left ventricular ejection fraction is 65 %. Mild (1+) aortic valve insufficiency. Mildly dilated aortic root. Ordering Physician: Kayley Thorne Referring Physician: Kayley Thorne Performed By: Harry Jackson RCS
== END | disposition home or self-care (01) ==
LOC: CVS 15:01
PROVIDERS: PCP Family Medicine; Referring Provider Physician Assistant Medical; Visit Provider Physician Assistant Medical
DX: R07.2 Precordial pain (principal); I43 Cardiomyopathy in diseases classified elsewhere; I34.1 Nonrheumatic mitral (valve) prolapse
CPT/HCPCS: 93306

== ENCOUNTER → 2023-03-15 | Outpatient (CLI) | payer MEDICARE, OTHER, SELFPAY ==
[2023-03-15 12:22] LABS: Absolute Lymphocyte Count 2.57 X10^3/uL (0.83-4.51); Absolute Neutrophil Count 4.5 X10^3/uL (2.0-7.7); Basophil# 0.08 X10^3/uL; Basophil% 0.9 % (0-1); Eosinophil# 0.55 X10^3/uL; Eosinophils% 6.5 % (0-5); Hematocrit 44.3 % (40-54); Hemoglobin 15.2 g/dL (13.0-16.5); Lymphocyte # 2.57 X10^3/ul (0.83-4.51); Lymphocyte % 30.2 % (19-41); Mean Corp Hgb Conc 34.3 g/dL (32-36); Mean Corpuscular Hgb 33.3 pg (27.0-32.0); Mean Corpuscular Volume 97.1 fL (80-94); Mean Platelet Vol. 9.2 fl (6.2-12.0); Monocyte# 0.78 X10^3/uL; Monocyte% 9.2 % (0-10); NRBC Flagged by Analyzer 0 % (0-5); Neutrophil # 4.53 X10^3/uL (2.7-7.7); Neutrophil % 53.1 % (47-70); Platelet Count 243 K/mm3 (150-450); RBC Distribution Width CV 11.9 % (11.6-14.6); RBC Distribution Width SD 42.8 fl (35.1-43.9); Red Blood Count 4.56 M/mm3 (4.6-6.2); White Blood Count 8.5 K/mm3 (4.4-11.0)
[2023-03-15 13:21] LABS: ALB/GLOB Ratio 1.1 RATIO (0.9-2.4); AST(SGOT) 42 U/L (15-37); Alanine Aminotransfer ALT/SGPT 23 U/L (16-61); Albumin, Serum 3.6 g/dL (3.2-5.0); Alkaline Phosphatase 66 U/L (45-117); Anion Gap 4 (5-15); BUN 15 mg/dL (7-18); BUN/Creat Ratio 14.9 RATIO (10-20); Chloride 109 mmol/L (98-107); Cholesterol 194 mg/dL (200); Creatinine, Serum 1.01 mg/dL (0.70-1.30); EST Glomerular Filtration Rate 78 mL/min (>60); Est Glom Filt Rate - Afr Amer 94 mL/min (>60); Globulin 3.4 g/dL (2.2-4.2); Glucose 110 mg/dL (74-106); High Density Lipoprotein 73 mg/dL; Potassium 4.1 mmol/L (3.5-5.1); Sodium Level 139 mmol/L (136-145); Triglycerides 98 mg/dL; Very Low Density Lipoprotein 20 mg/dL (5-40)
== END | disposition home or self-care (01) ==
LOC: LAB 11:58
PROVIDERS: PCP Family Medicine; Referring Provider Physician Assistant Medical; Visit Provider Physician Assistant Medical
DX: E78.5 Hyperlipidemia, unspecified (principal)
CPT/HCPCS: 36415; 80053; 80061; 85025

== ENCOUNTER → 2023-06-30 | Outpatient (CLI) | payer MEDICARE, OTHER, SELFPAY ==
--- NOTE | 2023-06-30 09:08 | RAD_ITS ---
STUDY: X-RAY - LEFT HAND REASON FOR EXAM: Male, 68 years old. pain, trauma TECHNIQUE: 3 view(s) of the hand. COMPARISON: None. FINDINGS: Normal radiocarpal articulation. Normal distal radioulnar joint. Normal visualized carpal bones. Normal carpal articulations Abnormal appearance of the carpal metacarpal articulation of the thumb. Findings suggest previous surgery, correlate clinically. Otherwise, degenerative changes or post injury changes with subluxation possible. Normal second through fifth carpometacarpal joints. Normal metacarpi. Normal metacarpophalangeal joint of the thumb. Normal interphalangeal joint of the thumb. Normal proximal and distal phalanges of the thumb. Normal metacarpophalangeal joints of the second through fifth fingers. Normal proximal and distal interphalangeal joints of the second through fifth fingers. Normal phalanges of the second through fifth fingers. The soft tissue structures are unremarkable. RAD/Hand Min 3 Views IMPRESSION: No definite acute or significant abnormality seen. See comments above regarding the base of the thumb. Electronically Signed: Valeriano Zuleta MD at 22:55 EST ,
== END | disposition home or self-care (01) ==
LOC: MTLAB 09:04 → MTRAD 09:06
PROVIDERS: PCP Family Medicine; Referring Provider Family Medicine; Visit Provider Family Medicine
DX: S69.90XA Unspecified injury of unspecified wrist, hand and finger(s), initial encounter (principal)
CPT/HCPCS: 73130

== ENCOUNTER 2023-09-28 12:00 | Outpatient (RCR) | payer MEDICARE, OTHER, SELFPAY ==
--- NOTE | 2023-10-12 11:36 | HP.OTEVAL ---
Patient's Visit Information Visit Information Visit Information: CLAUDIO WILHELM is a 68 year old M, referred to Occupational Therapy by Dr. Kyler Dial DO, with a diagnosis of Other articular cartilage disorders, R wrist. Date of Evaluation: Occupational Therapist: Lucie Harris Subjective Subjective: Claudio is a 68 year old male referred to occupational therapy for displaced fx of R ulna styloid process, sequela. Remote hx of wrist fx around 50 years ago. Reports thumb CMC Cortisol shot 2-3 weeks ago and TFCC Cortisol ~6 mo ago. F/U with 2-3 months (reports November appt). Claudio has been working on home renovations which has increased pain on ulnar side of wrist. 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 Comments: Above list are what affected by pain which limits participation to full extent Pain R WRIST: Current Pain Intensity: 2 Pain Intensity Range: 6 and 7 ROM Forearm: R/L WFL with pain at end range of sup Wrist: R/L WFL with pain at end range for rad/ulnar dev, ex/fl ROM Comments: Reports pain at end ranges for supination, listing 5/10 pain for rad/ulnar deviation and ex/fl 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 Goal:: Pt will demonstrate understanding joint protection/energy conservation by report of IADL participation with education by end of 3rd session. Goal:: Pt will demonstrate understanding of purpose of orthosis with wearing 80% of time by end of 3rd session. Rehabilitation General Assessment: Based on MRI results and painful resistive movement with R wrist, indicated pt would benefit from outpatient occupational therapy service 1-2/wk for 8 wks with use of modalities and orthosis for stability, joint protection, pain reduction, and participation in preferred activities. Abyal overseen by Kayley JACINTO/Fadumo, CHT. Rehabilitation Potential: Good Anticipated Interventions Anticipated Interventions: Strengthening, Triggerpoint Release, Modalities, Orthoses, Joint Protection/Energy Conservation, Ergonomic Education, Education re assistive Equipment, Education re Diagnosis and Home Program Visit Plan Frequency: 1-2x /Week Duration: 2 Months TEXT: Thank you for the opportunity to evaluate your patient. For Medicare and Medicare HMO plans, please review the plan of care and approve it. It will need to be FAXED BACK to us at [phone] for Medicare purposes. Please let me know if there are questions or concerns regarding this plan of care. Physician Signature: Date:
== END 2023-09-28 19:00 | disposition home or self-care (01) ==
LOC: OT 12:00
PROVIDERS: PCP Family Medicine; Referring Provider Student in an Organized Health Care Education/Training Program; Visit Provider Student in an Organized Health Care Education/Training Program
DX: M24.131 Other articular cartilage disorders, right wrist (principal); M18.11 Unilateral primary osteoarthritis of first carpometacarpal joint, right hand; S52.611S Displaced fracture of right ulna styloid process, sequela
CPT/HCPCS: 97166; 97530

== ENCOUNTER 2024-02-14 09:00 | Outpatient (RCR) | payer MEDICARE, OTHER, SELFPAY ==
--- NOTE | 2024-01-19 11:27 | HP.PTEVAL_ITS ---
Patient's Visit Information Visit Information Visit Information: SHARRON WILHELM is a 68 year old M referred to Physical Therapy by Magdaleno Spicer PA-C with a diagnosis of PRESENCE OF RIGHT ARTIFICIAL HIP ,PAIN IN RIGHT. Date of Evaluation: 01/19/24 Physical Therapist: Jose Pino, PT, Cert MDT, OCS Visit Plan Frequency: 2-3x /Week Duration: 4-6 Weeks Plan: H/O JOSELUIS ANTERIOR APPROACH 2018 PT INTERVENTIONS STRENGTHENING HIP FLEXION/ABDUCTION ,FUNCTIONAL STRENGTHENING ,PROPRIOCEPTION AND AEROBIC EX'S Subjective Subjective: This 68 y/o male presents to physical therapy with with h/o R JOSELUIS 2018. Patient has had pain in right hip which has pain intermittent and etiology is unknown. See PA did x-rays looked good. Placed on prednisone. Patient has flare ups global hip has difficulty WB. No pain currently. Patient has had paresthesia/tingling 2018 since surgery . Patient had anterior approach without complication but had burning in thigh. Patient has no difficulty with general walking/standing/stairs. No pain , Patient has flare ups unable to place weight. Patient sleeping good. Patient is active plays golf. Patient condition affects QOL. Patient goals no flare ups. SOCIAL: VOCATION: RETIRED Objective Objective: POSTURE: mild forward posture GAIT: reciprocal pattern NEURO: C/O burning and denies paresthesia /tingling right thigh SLS: < 10SEC with slight Trendelenburg AROM: HIP flexion WNL ~ 115 degrees ,abduction 45 degrees MMT: quads/hams 4/5 ,( peak force) hip abd 22.2 right ,left 20.2 ,hip flexion right 28.2 STAIRS: alternating Balance/Special Test Scores Lower Extremity Functional Score: 42 Goals Goal 1:: Patient to be I with HEP for hip Goal Time Frame: 4-6 Weeks Goal 2:: Patient to improve peak force hip abduction and hip hip flexion by 10- 15 # Strength to improve gait Goal Time Frame: 4-6 Weeks Goal 3:: Patient to demonstrate 75% improvement with increase function and strength Goal Time Frame: 4-6 Weeks Goal 4:: Patient to improve LFES score by 5 points to improve QOL and function Goal Time Frame: 4-6 Weeks Goal 5:: Patient to have no episodes of pain with decrease WB with gait Goal Time Frame: 4-6 Weeks Goal 6:: Patient to SLS > 30sec to improve gait Rehabilitation Potential Physical Therapy Diagnosis: This patient has had JOSELUIS right with pain with occasionally then unable to WB along with weakness hip thus benefit from skilled PT to improve strength Rehabilitation Potential: Good Anticipated Interventions Patient/Client Instruction: Educate patient on: Condition and Plan of Care For the Purpose of:: To decrease pain, To increase ROM, To improve muscle performance and motor function, To improve ability to perform ADL's, To increase tolerance to activity/condition/position, To improve ability of physical actions for home/community/work/leisure, To improve gait and locomotor functions, To improve endurance and To improve balance Therapeutic Exercise to Include: Strength training, Endurance training, Balance training, Gait and locomotor training and Active ROM Comment: hip For the Purpose of:: To decrease pain, To improve muscle performance and motor function, To increase tolerance to activity/condition/position, To improve ability of physical actions for home/community/work/leisure, To improve gait and locomotor functions, To improve endurance, To improve balance, To improve health and function and To prevent re-injury Text: Thank you for the opportunity to evaluate your patient. For Medicare and Medicare HMO plans, please review the plan of care and approve it. It will need to be FAXED BACK to us at [phone] for Medicare purposes. For Medicare only, by signing this I certify the plan of care. Please let me know if there are questions or concerns regarding this plan of care. Physician Signature: Date:
--- NOTE | 2024-03-15 13:56 | HP.PT.NRP ---
Patient Information Patient Information: SHARRON WILHELM was seen in my office for initial evaluation on 01/19/24. The following Plan of Care was established for this patient: POC Established Initial Frequency: 2-3x /Week Initial Duration: 4-6 Weeks Anticipated Interventions Patient/Client Instruction: Educate patient on: Condition and Plan of Care For the Purpose of:: To decrease pain, To increase ROM, To improve muscle performance and motor function, To improve ability to perform ADL's, To increase tolerance to activity/condition/position, To improve ability of physical actions for home/community/work/leisure, To improve gait and locomotor functions, To improve endurance and To improve balance Therapeutic Exercise to Include: Strength training, Endurance training, Balance training, Gait and locomotor training and Active ROM For the Purpose of:: To decrease pain, To improve muscle performance and motor function, To increase tolerance to activity/condition/position, To improve ability of physical actions for home/community/work/leisure, To improve gait and locomotor functions, To improve endurance, To improve balance, To improve health and function and To prevent re-injury Last Seen Last Seen: This patient was last seen in our office . Pertinent comments regarding their Physical therapy will appear below: Patient seen for PT for JOSELUIS for pain for strengthening doing better thus d/c At this point I will be discontinuing this patient from physical therapy. I would be happy to see this patient again in the future if found appropriate by the physician. Thank you! Jose Pino, PT, Cert MDT, OCS Balance/Gait/Functional tests Balance/Special Test Scores Lower Extremity Functional Score: 59
== END 2024-02-14 19:00 | disposition home or self-care (01) ==
LOC: PT 09:00
PROVIDERS: PCP Family Medicine; Referring Provider Physician Assistant Surgical; Visit Provider Physician Assistant Surgical
DX: Z96.641 Presence of right artificial hip joint (principal); M25.551 Pain in right hip
CPT/HCPCS: 97110; 97162

== ENCOUNTER → 2025-03-03 | Outpatient (CLI) | payer MEDICARE, OTHER, SELFPAY ==
[2025-03-03 16:15] LABS: Cholesterol 175 mg/dL (<=200); Low Density Lipoprotein Calc. 96 mg/dL; PSA,Total - Annual Screen 1.37 ng/mL (0.02-4.00); Triglycerides 62 mg/dL; Very Low Density Lipoprotein 12 mg/dL (5-40); cholesterol:hdl ratio screen 2.64
== END | disposition home or self-care (01) ==
PROVIDERS: PCP Family Medicine
DX: Z13.220 Encounter for screening for lipoid disorders (principal); Z12.5 Encounter for screening for malignant neoplasm of prostate; Z13.1 Encounter for screening for diabetes mellitus; E78.5 Hyperlipidemia, unspecified
CPT/HCPCS: 80061; 83036; 84153; G0103

== ENCOUNTER → 2025-04-01 | Outpatient (CLI) | payer MEDICARE, OTHER, SELFPAY ==
--- OUTSIDE RECORDS SUMMARY | 2025-04-01 06:29 | XMS RPT_ITS | CCD ---
Author Organization [facility] ion Partnership [facility] Care Team Providers Care Entertainer & Comic Name Role Phone FÁTIMA Sims, Sejal Marsh Unavailable UnavailJacinda Herrera PA-C Unavailable FRANK Santos Attending Provider Dr. Dandre Ellsworth Primary Care Provider [phone] Dr. Coco Walters Attending Provider FRANK Santos Attending Provider Dr. Coco Walters Referring Provider Unavailable Primary Care Provider UnavailAMIE Haque Attending Unavailable Dr. Dandre Ellsworth MD [facility]TRY REPRESENTATIVE-Earnest Webster [facility]ending [facility] E[facility] ELLIS Referring Provider Dr. Dandre Ellsworth MD Referring Provider [phone] Kayley Santos Attending Provider Dandre Ellsworth Primary Care Unavailable Dandre Ellsworth Referring Unavailable Kayley Santos Attending Unavail able Dandre Ellsworth Primary Care Unavailable Earnest Chadwick Attending Unavailable Earnest Chadwick Referring Unavailable Kayley Santos Attending Unavail able Kayley Santos Referring Unavail able Maureen Rangel Primary Care Unavailable Allergies Allergy Classification Reported Allergen(s) Allergy Type Date of Onset Reaction(s) Facility (5 sources) oxyCODONE Drug Allergy 3 Confused, disoriented [facility] (5 sources) Scopolamine Drug Allergy 3 Confused, disoriented [facility] Comment on above: Scopolamine patch (2 sources) Erythromycin; Translations: [ERYTHROMYCIN] Drug Allergy 6 [facility] (2 sources) Sertraline; Translations: [SERTRALINE HCL] Drug Allergy 6 [facility] (1 source) oxyCODONE Drug Allergy 5 [facility] (1 source) Scopolamine Drug Allergy 5 [facility] Medications Current Medications Medication Drug Class(es) Dates Sig (Normalized) Sig (Original) aspirin 81 mg delayed release oral tablet (10 sources) Nonsteroidal Anti-inflammatory Drug Start: 11-06-2017 take 1 tablet by mouth once daily Aspirin 81 MG tablet Active 81 mg PO DAILY@0800 November 06, 2017 12:00am [facility] Start: 01-12-2011 take 1 tablet by eleazar once daily ASPIRIN 81 MG TABS One tablet by mouth daily ASPIRIN [id number] Roger Alvarado MD Comment on above: Take 81 mg by mouth once daily. 24 hr metoprolol succinate 25 mg extended release oral tablet (20 sources) beta-Adrenergic Aileen Start: 03-06-2025 take 1 tablet by mouth once daily Metoprolol Succinate 25 mg tablet extended release 24 hr Active 25 mg PO DAILY 90 4 March 06, 2025 8:56am Start: 11-05-2020 End: 01-04-2021 take 1 tablet by mouth every hour at bedtime Metoprolol Succinate 50 mg tablet extended release 24 hr Discontinued 0 .ROUTE .COMPLEX 90 November 05, 2020 8:41am January 04, 2021 4:17pm TKAE 1 TABLET BY MOUTH EVERY BEDTIME FOR BLOOD PRESSURE Start: 11-06-2017 End: 03-06-2025 take 1 tablet by mouth once daily Metoprolol Succinate 50 mg tablet extended release 24 hr Discontinued 50 mg PO DAILY 90 4 June 14, 2024 10:02am March 06, 2025 8:57am Start: 11-06-2017 End: 11-05-2020 take 1 tablet by mouth every twenty-four hours at bedtime Metoprolol Succinate 50 mg tablet extended release 24 hr Discontinued 50 mg PO AT BEDTIME 90 3 November 26, 2019 10:13am November 05, 2020 8:41am BP Start: 09-06-2017 End: 11-06-2017 take 1 tablet by mouth twice daily Metoprolol Succinate (Toprol Xl) 50 mg tablet extended release 24 hr Discontinued 50 mg PO TWICE A DAY 1 September 06, 2017 2:17pm November 06, 2017 10:08am Start: 01-16-2012 take 0.5 tablet by m outh once daily METOPROLOL SUCCINATE ER 100 MG [id number] take 1/2 tablet by mouth daily METOPROLOL SUCCINATE [id number] Kayley Thorne PA-C Start: 01-16-2012 take 0.5 tablet by m outh twice daily METOPROLOL SUCCINATE ER 100 MG [id number] take 1/2 tablet by mouth twice daily METOPROLOL SUCCINATE [id number] Judson Guzman MD Start: 01-16-2012 take 1 tablet by eleazar th once daily TOPROL XL 50 MG [id number] (ER) One tablet by mouth daily METOPROLOL SUCCINATE [id number] Roger Alvarado MD Start: 01-12-2011 take 1 tablet by eleazar th twice daily TOPROL XL 50 MG [id number] One tablet by mouth twice daily METOPROLOL SUCCINATE [id number] Jose Guadarrama MD metoprolol tartr ate, short acting, (LOPRESSOR) 100 mg tablet Take 50 mg by mouth once daily. 0 Active Comment on above: Take 50 mg by mouth once daily. Completed/Discontinued Medications Medication Drug Class(es) Dates Sig (Normalized) Sig (Original) acetaminophen 500 mg oral tablet (10 sources) Start: 11-22-2017 End: 06-21-2019 take 2 tablets by mouth every eight hours as needed for pain Acetaminophen 500 mg tablet Discontinued 1000 mg PO EVERY 8 HOURS as needed for pain April 20, 2018 9:14am June 21, 2019 11:27am Start: 11-22-2017 End: 06-21-2019 take 1000 mg by mouth every eight hours Acetaminophen Discontinued 1000 MG PO EVERY 8 HOURS April 20, 2018 8:14am June 21, 2019 10:27am amoxicillin 500 mg oral tablet (5 sources) Penicillin-class Antibacterial Start: 11-06-2022 End: 11-16-2022 take 1 tablet by mouth twice daily Amoxicillin 500 mg tablet Discontinued 500 mg PO TWICE A DAY 20 10 November 06, 2022 12:00am November 15, 2022 12:00am November 16, 2022 12:04am amoxicillin 875 mg / clavulanate 125 mg oral tablet (2 sources) Penicillin-class Antibacterial Start: 03-11-2013 End: 04-09-2014 take 1 tablet by mouth twice daily AUGMENTIN 875-125 MG TABS One tablet by mouth twice daily AMOXICILLIN-POT CLAVULANATE [id number] Kayley Thorne PA-C apixaban 5 mg oral tablet (20 sources) Factor Xa Inhibitor Start: 12-29-2020 ELIQUIS 5 MG TABS 2 tablet once a day apixaban [id number] Louisa Banerjee LPN Start: 06-21-2019 End: 02-17-2025 take 1 tablet by mouth twice daily Apixaban (Eliquis) 5 mg tablet Discontinued 5 mg PO TWICE A DAY 180 0 November 22, 2024 11:02am February 17, 2025 1:46pm colesevelam hydrochloride 625 mg oral tablet (20 sources) Bile Acid Sequestrant Start: 11-06-2017 End: 07-01-2024 take 2 tablets by mouth once daily at mealtime for hyperlipidemia Colesevelam 625 mg tablet Discontinued 0 .ROUTE .COMPLEX 180 June 07, 2023 9:05am July 01, 2024 11:33am TAKE 2 TABLETS BY MOUTH ONCE DAILY WITH A MEAL FOR CHOLESTEROL Start: 11-06-2017 End: 06-07-2023 take 2 tablets by mouth once daily at mealtime for hyperlipidemia Colesevelam Active 0 .ROUTE .COMPLEX 180 June 07, 2023 8:05am TAKE 2 TABLETS BY MOUTH ONCE DAILY WITH A MEAL FOR CHOLESTEROL Start: 09-06-2017 End: 11-06-2017 take 2 tablets by mouth twice daily Colesevelam (Farrar ol) 625 mg tablet Discontinued 1250 mg PO TWICE A DAY 1 September 06, 2017 1:00am November 06, 2017 10:08am administer with a meal Start: 04-24-2012 take 1 tablet by mouth twice d aily WELCHOL 625 MG TABS One tablet by mouth twice daily. COLESEVELAM HCL [id number] Roger Alvarado MD Start: 09-08-2011 WELCHOL 625 MG TABS .12 COLESEVELAM HCL [id number] Jose Guadarrama MD take 3 tablets by mo [facility] twice daily at mealtime colesevelam (WELCHOL) 625 mg tablet Take 1,875 mg by mouth twice daily with meals. 0 Active Comment on above: Take 1,875 mg by eleazar twice daily with meals. docusate sodium 50 mg / sennosides, prison 8.6 mg oral tablet (5 sources) Start: 11-23-2017 End: 04-20-2018 Sennosides-Docusate Sodium 1 TABLET tablet Discontinued 2 {tbl} PO TWICE A DAY 0 November 23, 2017 12:00am April 20, 2018 9:15am Start: 11-23-2017 End: 04-20-2018 take 2 tablets by mouth twice daily Sennosides-Docusate Sodium Discontinued 2 TABLET PO TWICE A DAY November 22, 2017 11:00pm April 20, 2018 8:15am esomeprazole 20 mg granules for oral suspension (12 sources) Proton Pump Inhibitor Start: 12-29-2020 NEXIUM 20 MG PACK as needed esomeprazole magnesium [id number] Louisa Chriss WYNN Start: 11-06-2017 Esomeprazole M agnesium 20 MG capsule Active 20 mg PO NEEDED as needed for Indigestion November 06, 2017 12:00am Start: 04-06-2016 NEXIUM 20 MG C PDR as needed ESOMEPRAZOLE MAGNESIUM [id number] Roger Alvarado MD Start: 01-12-2011 End: 06-01-2015 take 1 tablet by mouth once daily NEXIUM 40 MG CPDR One tablet by mouth daily ESOMEPRAZOLE MAGNESIUM [id number] Roger Alvarado MD esomeprazole mag nesium (NEXIUM 24HR) 22.3 mg cpDR Take by mouth as needed. 0 Active Comment on above: Take by mouth as nee ded. ezetimibe 10 mg oral tablet (2 sources) Dietary Cholesterol Absorption Inhibitor Start: 1 End: 2 take 1 tablet by mouth once daily ZETIA 10 MG TABS One tablet by mouth daily EZETIMIBE [id number] Kate Pina flecainide acetate 100 mg oral tablet (20 sources) Antiarrhythmic Start: 8 End: 8 take 1 tablet by mouth every twelve hours Flecainide 100 mg tablet Discontinued 100 mg PO Q12H 1 0 September 06, 2017 1:00am November 06, 2017 10:08am Start: 01-12-2011 End: 02-17-2025 take 1 tablet by mouth twice daily Flecainide 100 mg tablet Discontinued 100 mg PO TWICE A DAY 180 April 22, 2024 8:51am February 17, 2025 1:46pm BP Comment on above: Take 100 mg by mouth twice daily. gabapentin 100 mg oral capsule (5 sources) Anti-epileptic Agent Start: 11-23-2017 End: 04-20-2018 take 2 capsules by mouth three times daily at mealtime Gabapentin 100 MG capsule Discontinued 200 mg PO 3 TIMES DAILY WITH MEALS 100 0 November 23, 2017 12:00am April 20, 2018 9:14am Start: 11-23-2017 End: 04-20-2018 take 200 mg by mouth three times daily at mealtime Gabapentin Discontinued 200 MG PO 3 TIMES DAILY WITH MEALS 100 November 22, 2017 11:00pm April 20, 2018 8:14am losartan potassium 25 mg oral tablet (20 sources) Angiotensin 2 Receptor Aileen Start: 10-15-2018 End: 06-14-2024 take 1 tablet by mouth once daily Losartan 25 mg tablet Discontinued 25 mg PO DAILY 90 May 25, 2022 1:21pm June 14, 2024 10:02am Comment on above: Take 25 mg by mouth once daily. oxybutynin (12 sources) Cholinergic Muscarinic Antagonist Start: 12-29-2020 OXYBUTYNIN CHLORIDE TABLET as needed OXYBUTYNIN CHLORIDE TABLET Louisa Banerjee LPN Start: 12-29-2020 OXYBUTYNIN CHL ORIDE TABS as needed OXYBUTYNIN CHLORIDE TABS [id number] Pedro Hong MD Start: 06-21-2019 End: 03-06-2025 take 1 tablet by mouth once daily as needed Oxybutynin Chloride 10 mg tablet extended release 24hr Discontinued 10 mg PO DAILY as needed September 17, 2020 10:45am March 06, 2025 8:27am tiZANidine 2 mg oral tablet (2 sources) Central alpha-2 Adrenergic Agonist Start: 12-29-2020 TIZANIDINE HCL 2 MG TABS as needed tizanidine [id number] Louisa Banerjee [employer] traMADol hydrochloride 50 mg oral tablet (5 sources) Opioid Agonist Start: 11-23-2017 End: 04-20-2018 take 50-100 mg by mouth every six hours as needed for pain Tramadol 50 MG tablet Discontinued 50 - 100 mg PO EVERY 6 HOURS NEEDED as needed for Pain 60 7 0 November 23, 2017 12:00am April 20, 2018 9:15am Other acute postprocedural pain valsartan 40 mg oral tablet (16 sources) Angiotensin 2 Receptor Aileen Start: 01-12-2011 End: 10-15-2018 take 1 tablet by mouth once daily Valsartan (Diovan) 40 mg tablet Discontinued 40 mg PO daily 1 0 September 06, 2017 1:00am November 06, 2017 10:08am Comment on above: Take 40 mg by mouth once daily. warfarin sodium 5 mg oral tablet (20 sources) Vitamin K Antagonist Start: 01-02-2018 End: 06-21-2019 Warfarin 2 mg tablet Discontinued 2 mg PO .COMPLEX 270 3 January 11, 2018 10:42am May 25, 2018 5:15pm 2 mg PO 2 tablets (4mg) on Weds and Thurs: takes 6 mg (uses 1 and 5 mg tablets) all other days of the week, or as directed Please contact the information source for Protocol details. Start: 12-06-2017 End: 06-21-2019 Warfarin (Coumadin) 1 mg tab let Discontinued 1 mg PO .COMPLEX 90 3 January 02, 2018 2:50pm June 21, 2019 11:51am 1 mg PO 1 tablet by mouth with a 5mg tablet = 6mg x 5 days of the week (takes two of the 2 mg tablets/4mg two days per week) Please contact the information source for Protocol details. Start: 12-06-2017 End: 06-21-2019 Warfarin (Coumadin) 5 mg tab let Discontinued 5 mg PO .COMPLEX 90 3 April 23, 2019 10:21am June 21, 2019 11:51am 5 mg PO (1 tablet) with a 1mg tablet = 6mg x5 days of the week and 4mg x 2 days of the week; as directed Please contact the information source for Protocol details. Start: 11-06-2017 End: 01-02-2018 Warfarin 4 MG tablet Discont inued 4 mg PO November 06, 2017 12:00am January 02, 2018 2:48pm BLOOD THINNER Please contact the information source for Protocol details. Start: 11-06-2017 End: 06-21-2019 Warfarin 6 MG tablet Discont inued 6 mg PO November 06, 2017 12:00am June 21, 2019 11:51am BLOOD THINNER Please contact the information source for Protocol details. Start: 10-07-2013 COUMADIN 5 MG TABS take 4 mg X 2 days per week: take with a 1 mg tablet to = 6 mg X 5 days per week. Or as directed. WARFARIN SODIUM [id number] Roger Alvarado MD Start: 01-25-2012 COUMADIN 1 MG TABS take 4 mg X 2 days per week: take with a 5 mg tab to = 6 mg X 5 days per week. Or as directed. WARFARIN SODIUM [id number] Roger Alvarado MD Start: 11-10-2011 take 1 tablet by eleazar th once daily, then take 5 tablets by mouth COUMADIN 2 MG TABS One tablet by mouth daily with a 5 mg tablet to = 7 mg daily WARFARIN SODIUM [id number] Roger Alvarado MD Start: 01-12-2011 End: 10-07-2013 COUMADIN 4 MG TABS Take as d irected (4.5mg alt with 5mg every other day) WARFARIN SODIUM [id number] Roger Alvarado MD Start: 01-12-2011 take 1 tablet by eleazar th once daily, then take 2 tablets by mouth COUMADIN 5 MG TABS One tablet by mouth daily with a 2 mg tablet to = 7 mg daily WARFARIN SODIUM [id number] Roger Alvarado MD Start: 01-12-2011 COUMADIN 1 MG TABS Take as directed current dose 7 mg -Sat - Wed,8 mg on Sat & Sun WARFARIN SODIUM [id number] Judson Guzman MD warfarin 5 mg tab 5 mg, warfarin 2 mg tab 2 mg (1 source) warfarin 5 mg ta b 5 mg, warfarin 2 mg tab 2 mg Take by mouth once daily. 0 Active Comment on above: Take by mouth once d aily. Problems Active Problems Problem Classification Problem Date Documented Da te Episodic/Chronic Acute myocardial infarction (1 source) Mural thrombus of heart; Translations: [Intracardiac thrombosis, not elsewhere classified] Onset: 1 01-12-2011 Chronic Acute posthemorrhagic anemia (5 sources) Acute posthemorrhagic anemia; Translations: [Acute posthemorrhagic anemia] 04-18-2018 Episodic Alcohol-related disorders (1 source) Dilated cardiomyopathy secondary to alcohol; Translations: [Alcoholic cardiomyopathy] Onset: 1 01-12-2011 Chronic Aortic; peripheral; and visceral artery aneurysms (5 sources) Aortic root dilatation; Translations: [Thoracic aortic ectasia] 02-09-2023 Chronic Cardiac dysrhythmias (12 sources) Atrial fibrillation; Translations: [Paroxysmal atrial fibrillation] Onset: 1 01-12-2011 Chronic Chronic obstructive pulmonary disease and bronchiectasis (6 sources) Bronchitis; Translations: [Bronchitis, not specified as acute or chronic] 11-06-2022 Episodic Disorders of lipid metabolism (10 sources) Hyperlipidemia; Translations: [Hyperlipidemia, unspecified] Onset: 1 01-12-2011 Chronic Essential hypertension (10 sources) Essential hypertension; Translations: [Essential (primary) hypertension] Onset: 5 06-19-2019 Chronic Fluid and electrolyte disorders (5 sources) Hypokalemia; Translations: [Hypokalemia] 06-19-2019 Episodic Gastrointestinal hemorrhage (1 source) Gastrointestinal hemorrhage; Translations: [Gastrointestinal hemorrhage, unspecified] 05-02-2006 Episodic Heart valve disorders (10 sources) Mitral valve prolapse; Translations: [Nonrheumatic mitral (valve) prolapse] Onset: 5 04-18-2018 Chronic Hemorrhoids (1 source) External hemorrhoids; Translations: [Residual hemorrhoidal skin tags] 05-02-2006 Episodic Nonspecific chest pain (5 sources) Precordial pain; Translations: [Precordial pain] 09-10-2020 Episodic Osteoarthritis (4 sources) Osteoarthritis of hip; Translations: [Osteoarthritis of knee] Onset: 6 05-04-2017 Chronic Other aftercare (5 sources) Long-term current use of anticoagulant; 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] 04-18-2018 Episodic Other aftercare (4 sources) Long-term current use of drug therapy; Translations: [Encounter for therapeutic drug level monitoring] 03-06-2025 Episodic Other connective tissue disease (2 sources) Triggering of digit; Translations: [Trigger finger, left middle finger] Onset: 2 09-21-2021 Episodic Other gastrointestinal disorders (1 source) Diarrhea; Translations: [Diarrhea, unspecified] 05-02-2006 Episodic Other nervous system disorders (2 sources) Lesion of ulnar nerve, left upper limb; Translations: [Lesion of ulnar nerve] Onset: 1 06-10-2021 Chronic Other nervous system disorders (2 sources) Carpal tunnel syndrome, left upper limb; Translations: [Carpal tunnel syndrome] Onset: 1 04-13-2021 Chronic Other nervous system disorders (5 sources) Toxic encephalopathy; Translations: [Toxic encephalopathy] 06-19-2019 Episodic Other non-traumatic joint disorders (1 source) Pain of right wrist; Translations: [Pain in right wrist] 10-16-2023 Episodic Other screening for suspected conditions (not mental disorders or infectious disease) (2 sources) Abnormal electrocardiogram [ECG] [EKG]; Translations: [Encounter for screening for lipoid disorders] Onset: 5 Episodic Other upper respiratory infections (6 sources) Acute bacterial sinusitis; Translations: [Acute sinusitis, unspecified] 11-06-2022 Episodic Nalini-; endo-; and myocarditis; cardiomyopathy (11 sources) Cardiomyopathy in diseases classified elsewhere; Translations: [Cardiomyopathy associated with another disorder] Onset: 1 01-12-2011 Chronic Residual codes; unclassified (5 sources) Insomnia; Translations: [Insomnia, unspecified] 04-18-2018 Episodic Spondylosis; intervertebral disc disorders; other back problems (1 source) Degeneration of lumbar intervertebral disc; Translations: [Other intervertebral disc degeneration, lumbar region] Onset: 7 05-05-2017 Chronic Unclassified (1 source) Long-term drug therapy; Translations: [Other skilled nursing (current) drug therapy] Onset: 01-12-2011 Past or Other Problems Problem Classification Problem Date Documented Da te Episodic/Chronic Alcohol-related disorders (1 source) H/O: alcoholism; Translations: [Alcohol dependence, in remission] Onset: 01-12-2011 01-12-2011 Episodic Joint disorders and dislocations; trauma-related (1 source) Acetabular labrum tear; Translations: [Other articular cartilage disorders, unspecified hip] Onset: 05-04-2017 05-04-2017 Episodic Other connective tissue disease (2 sources) Biceps tendinitis; Translations: [Impingement syndrome of shoulder region] Onset: 05-04-2017 05-04-2017 Episodic Other non-traumatic joint disorders (3 sources) Knee pain; Translations: [Shoulder pain] Onset: 09-17-2015 09-17-2015 Episodic Other non-traumatic joint disorders (1 source) Soft tissue lesion of shoulder region; Translations: [Other specified joint disorders, unspecified shoulder] Onset: 07-17-2012 07-17-2012 Episodic Unclassified (1 source) Body mass index (BMI) 25.0-25.9, adult; Translations: [Body mass index (BMI) 25.0-25.9, adult] Onset: 10-07-2013 10-07-2013 Episodic Unclassified (2 sources) Problem Results Test Name Value Interpretation Reference Range Facility Cardiology Visit Reporton Cardiology Visit Report [facility] [address] [place] [address] OFFICE VISIT Date of Service: 03/06/25 MR#: [id number] Acct: [id number] Name: CLAUDIO OLVERA Rep #: [id number] : 1955 Provider: FRANK Rodriguez Age/Sex: 69/M [place] [facility] [place]: Signed HPI HPI History of Present Illness Details: Claudio Olvera 69 year-old white male who presents today for outpatient cardiovascular follow-up of his history of paroxysmal A fibrillation, non-CAD related cardiomyopathy, mitral valve prolapse, hyperlipidemia, and hypertension. From a cardiac standpoint, patient is doing well. He does not have any chest discomfort/heavines s/tightness. His exercise tolerance is stable for his age. He does not have any worsening symptoms of shortness of breath. He denies any PND. He does not have any orthopnea. He does not have any symptoms of congestive heart failure. He does not have any palpitations that he is aware of. He does not have any lightheadedness or dizziness. He does not have any near-syncope or syncope. He does not have any lower extremity edema. He does not have any symptoms of claudication. EKG demonstrates sinus bradycardia with a heart rate of 52. Intake Vital Signs 01/12/23 10:51 03/06/25 08:12 Height 5 ft 9 in 5 ft 9 in Weight: 176 lb BMI 25.9 BP 132/67 H Blood Pressure Location Lt brachial Position Sitting Respiration 16 Pulse 53 L Pulse Source NIBP Intake Visit Reasons: OVERDUE FOR FU [employer] Required: No Is patient in pain?: No Allergies oxycodone Adverse Reaction (Severe, Verified 03/06/25 08:26) Confused, disoriented scopolamine Adverse Reaction (Severe, Verified 03/06/25 08:26) Confused, disoriented Medications ???Medication ???Instructions ???Recorded ???Confirmed ???Type aspirin 81 mg tablet,delayed 81 mg PO DAILY@0800 [facility] 0 11/06/17 03/06/25 History release esomeprazole magnesium 20 mg 20 mg PO PRN PRN Indigestion 11/0603/06/25 History capsule,delayed release losartan 25 mg tablet 25 mg PO DAILY #90 tabs 06/14/24 0 03/06/25 Rx colesevelam 625 mg tablet See Rx Instructions .Route 4 03/06/25 Rx .COMPLEX #180 tabs apixaban 5 mg tablet (Eliquis) 5 mg PO BID #180 TABLETS 02/17/25 03/06/25 Rx flecainide 100 mg tablet 100 mg PO BID BP #180 tabs 5 03/06/25 Rx metoprolol succinate 25 mg 25 mg PO DAILY #90 tabs 03/06/25 0 03/06/25 Rx tablet,extended release 24 hr Ejection fraction %: 65 Have you fallen in the past year?: No PFS Medical History (Updated 03/06/25 @ 09:02 by Kayley Thorne PA, PA) Encounter for monitoring flecainide therapy Dilated aortic root Precordial pain Essential hypertension Mural thrombus of heart DDD (degenerative disc disease) Hyperlipidemia Nonrheumatic mitral (valve) prolapse Cardiomyopathy in other diseases classified elsewhere Acute blood loss anemia Hypokalemia Insomnia Toxic encephalopathy Paroxysmal atrial fibrillation 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 Surgical History History of thumb surgery History of surgery on wrist History of right hip replacement History of arthroscopic knee surgery History of umbilical hernia repair Status post total hip replacement, right Family History Father Atrial fibrillation Mother Cardiomyopathy Social History Smoking Status: Never smoker alcohol intake: former details: History of alcohol abuse ROS Const Const: Negative for fatigue or weakness Eyes Eyes: Negative for change in vision ENT ENT: Negative for dizziness or balance problems Cardio Chest Pain: Yes (every now and then vague short episdodes) Palpitations: No Edema: None Resp Respiratory: Negative for SOB with activity, SOB at rest or SOB orthopnea SOB lying down GI GI: Negative nausea or heartburn Musc Musc: Negative for balance problems Neuro Neuro: Negative for dizziness, lightheadedness, near syncope, syncope or weakness Endo Endo: Negative for fatigue Cardiology Exam Const Appearance: cooperative, healthy appearing, comfortable, no acute distress, well developed and well groomed Nutritional Appearance: overweight Orientation: alert, awake and oriented x3 Head Head: normal to inspection, normocephalic and atraumatic Ears: hearing grossly normal bilaterally Nose: external nose normal Face and Sinus: face symmetric Eyes Eyelids: eyelids normal Conjunctivae: conjunctivae normal Pupils: PERRL EOM: EOM intact bilaterally Neck Neck: normal visual inspection and full ROM Carotids: normal carotid upstroke Chest Chest inspection: normal inspection of (more content not included)... Normal [facility] Calculated very low density lipoprotein (VLDL) cholesterol measurementOrdered By: Earnest Chadwick on 03-03-2025 Calculated very low density lipoprotein (VLDL) cholesterol measurement 12 mg/dL 5-40 [facility] Hemoglobin A1con 03-03-2025 HbA1c (Bld) [Mass fraction] 5.2 % Normal <=5.6 [facility] Comment on above: Order Comment: Order Date: 01/27/25 Order Info: [id number] - A1C Comments: screening for diabetes Result Comment: Norm al < 5.7 % Prediabetic 5.7 - 6.4 % Diabetic >or= 6.5 % Please note range changes. Performed By: #### L 501.9985 #### [facility] [address] [place], [place], [address] Hemoglobin A1c percentageOrd ered By: Earnest Chadwick on 03-03-2025 HbA1c (Bld) [Mass fraction] 5.2 % <5.7 [facility] Comment on above: Normal < 5.7 % Predi abetic 5.7 - 6.4 % Diabetic >or= 6.5 % Please note range changes. LDL calc ser/plasOrdered By: Earnest Chadwick on 03-03-2025 Cholesterol in LDL [Mass/Vol] 96 mg/dL [facility] Comment on above: Nwipcdbkvy=298-437 m g/dL & Higher Iksf=792 mg/dL or greater Lipid Profileon 03-03-2025 CHOL:HDL 2.64 Normal [facility] Comment on above: Order Comment: Order Date: 01/27/25 Order Info: [id number] - LIPID Comments: screening cholesterol Order Info: [id number] - PSA Comments: prostate cancer screening Performed By: #### L 500.4100 #### [facility] [address] [place], [address] Cholesterol [Mass/Vol] 175 mg/dL Normal <=200 [facility] Comment on above: Order Comment: Order Date: 01/27/25 Order Info: [id number] - LIPID Comments: screening cholesterol Order Info: [id number] - PSA Comments: prostate cancer screening Result Comment: Chol esterol level, Desirable <200 mg/dL Borderline high cholesterol 200-239 mg/dL High cholesterol >=240 mg/dL Recommendations of the NCEP Adult Treatment Panel for the following risk-cutoff thresholds for the [place] population. Performed By: #### L 500.4100 #### [facility] [address] [place], [place], [address] [phone] Cholesterol in HDL [Mass/Vol] 66 mg/dL Normal [facility] Comment on above: Order Comment: Order Date: 01/27/25 Order Info: [id number] - LIPID Comments: screening cholesterol Order Info: [id number] - PSA Comments: prostate cancer screening Result Comment: [place] Cholesterol Education Program (NCEP) guidelines: <40 mg/dL: Low HDL-cholesterol (major risk factor for CHD) >= 60 mg/dL: High HDL-cholesterol (negative risk factor for CHD) HDL-cholesterol is affected by a number of factors, e.g. smoking, exercise, hormones, sex and age. Performed By: #### L 500.4100 #### [facility] [address] [place], [place], [id number] [phone] Cholesterol in LDL [Mass/Vol] 96 mg/dL Normal [facility] Comment on above: Order Comment: Order Date: 01/27/25 Order Info: [id number] - LIPID Comments: screening cholesterol Order Info: [id number] - PSA Comments: prostate cancer screening Result Comment: Bord ebbzos=529-189 mg/dL Higher Xywa=327 mg/dL or greater Performed By: #### L 500.4100 #### [facility] [address] [place], [place], [id number] [phone] Cholesterol in VLDL [Mass/Vol] 12 mg/dL Normal 5-40 [facility] Comment on above: Order Comment: Order Date: 01/27/25 Order Info: [id number] - LIPID Comments: screening cholesterol Order Info: [id number] - PSA Comments: prostate cancer screening Performed By: #### L 500.4100 #### [facility] [address] [place], [address] Triglyceride [Mass/Vol] 62 mg/dL Normal [facility] Comment on above: Order Comment: Order Date: 01/27/25 Order Info: [id number] - LIPID Comments: screening cholesterol Order Info: 1 - PSA Comments: prostate cancer screening Result Comment: The drugs N-Acetylcysteine and Metamizole may falsely depress this assay. Normal range: <150 mg/dL Borderline High: 150-199 mg/dL High: 200-499 mg/dL Very High: >500 mg/dL Performed By: #### L 500.4100 #### [facility] [address] [place], [place], [address] PSA,Total - Annual Screenon 03-03-2025 PSA,TOT SCREEN 1.37 ng/mL Normal 0.02-4.00 [facility] Comment on above: Order Comment: Order Date: 01/27/25 Order Info: [id number] - LIPID Comments: screening cholesterol Order Info: [id number] - PSA Comments: prostate cancer screening Result Comment: This test was performed using the [employer] tPSA method. Measured values of a patient??sample can vary depending on the testing procedure used. PSA values determined on patient samples by different testing procedures cannot be used interchangeably. If there is a change in PSA assays while monitoring therapy, sequential testing should be performed to confirm baseline values. Performed By: #### L 501.9910 #### [facility] [address] [place], [place], [address] Screening total cholesterol/ high density lipoprotein (HDL) cholesterol ratioOrdered By: Earnest Chadwick on 03-03-2025 Cholesterol.total/Chol esterol in HDL [Mass ratio] 2.64 {ratio} [facility] Serum or plasma cholesterol in HDL measurement (mass/volume)Ordered By: Earnest Chadwick on 03-03-2025 Cholesterol in HDL [Mass/Vol] 66 mg/dL >40 [facility] Comment on above: National Cholesterol Education Program (NCEP) guidelines:<40 mg/dL: Low HDL-cholesterol (major risk factor for CHD)>= 60 mg/dL: High HDL-cholesterol (negative risk factor for CHD)HDL-cholesterol is affected by a number of factors, e.g. smoking, exercise, hormones, sex and age. Serum or plasma cholesterol measurement (mass/volume)Ordered By: Earnset Chadwick on 03-03-2025 Cholesterol [Mass/Vol] 175 mg/dL <201 [facility] Comment on above: Cholesterol level, D esirable <200 mg/dLBorderline high cholesterol 200-239 mg/dLHigh cholesterol >=240 mg/dLRecommendations of the NCEP Adult Treatment Panel for the following risk-cutoff thresholds for the [place] population. Triglycerides measurementOrd ered By: Earnest Chadwick on 03-03-2025 Triglyceride [Mass/Vol] 62 mg/dL <199 [facility] Comment on above: The drugs N-Acetylcy steine and Metamizole may falsely depress this assay. Normal range: <150 mg/dLBorderline High: 150-199 mg/dLHigh: 200-499 mg/dLVery High: >500 mg/dL CNOVon 09-27-2023 CNOV Office Visit ([id number]) ---- CLAUDIO OLVERA ([id number]) 1955 M Date Time Provider Department 09/27/23 3:00 PM AMIE FINK [id number] During your visit today, we recorded the following information about you: Respiration Weight Height 16/minute 77.1 kg 1.74 m Amie Fink MD 10/16/2023 1:37 PM Signed Patient presents with: Right Wrist - New HISTORY OF PRESENT ILLNESS Claudio T May is a 68 year old male right hand dominant who presents for evaluation of right wrist pain. The patient has been having symptoms for months. He has a remote history of a wrist injury some 50 years ago. He localizes this to the ulnar side of the wrist. He has undergone a prior injection which did not provide much relief. 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 Diabetes:No ALLERGIES ALLERGIES Allergen Reactions Emycin [Erythromyci* Zoloft [Sertraline * PHYSICAL EXAMINATION Resp 16 Ht 174 cm (5' 8.5) Wt 77.1 kg (170 lb) BMI 25.47 kg/m? Body mass index is 25.47 kg/m?. General Appearance Well appearing, alert, in no acute distress, well-hydrated, well nourished. Alert and oriented times: 3 Normal affect times: 3 Appears stated age and well nourished Gait and station:normal Right Upper Extremity Exam: Inspection shows normal alignment about the wrist No wounds or lacerations. No surgical incisions noted No atrophy or depigmentation at the site of prior injection Skin: WNL Tenderness to palpation: Tender along the ulnar side of the wrist ROM: Full composite fist Wrist flexion, extension, pronation/supinatio n intact, nearly symmetric with the contralateral side Instability: none at the DRUJ No ECU instability Sensation:Normal sensation Atrophy: None Brisk capillary refill Special tests: Pain with ulnar loading grind REVIEW OF STUDIES X-rays reviewed from outside institution, 3 views of the right wrist demonstrate a remote nonunited ulnar styloid fracture. There is ulnar neutral variance. No acute fracture or dislocation noted. No lytic or erosive lesions. ASSESSMENT AND PLAN ASSESSMENT/PLAN: 1. Pain in right wrist - ICD9: 719.43, ICD10: M25.531 I reviewed the imaging with the patient and discussed diagnosis. 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 He has had previous injections which were not particularly helpful, the most recent of which was about 1 month ago. He would like to consider options and we will follow-up together as needed moving forward. Amie Fink MD Patient educated on treatment options for ulnar-sided wrist pain. Patient instructed to call the office with questions or concerns. Allergies As of Date: 09/27/2023 Noted Allergy Reaction EMYCIN (ERYTHROMYCIN) 03/21/2006 ZOLOFT (SERTRALINE HCL) 03/21/2006 Date Reviewed: 09/27/2023 Reviewed by: Amie Fink MD - Fully Assessed Reason for Visit: New [[id number]] Primary Visit Diagnosis:Pain in right wrist [M25.531] Prescriptions as of 10/16/2023 - ELIQUIS 5 mg tab(s) - losartan (COZAAR) 25 mg tablet Take 25 mg by mouth once daily. - aspirin, enteric coated (ASPIRIN, ENTERIC COATED) 81 mg EC tablet Take 81 mg by mouth once daily. - esomeprazole magnesium (NEXIUM 24HR) 22.3 mg cpDR Take by mouth as needed. - colesevelam (WELCHOL) 625 mg tablet Take 1,875 mg by mouth twice daily with meals. - flecainide (TAMBOCOR) 100 mg tablet Take 100 mg by mouth twice daily. - metoprolol tartrate, short acting, (LOPRESSOR) 100 mg tablet Take 50 mg by mouth once daily. - warfarin 5 mg tab 5 mg, warfarin 2 mg tab 2 mg Take by mouth once daily. - valsartan (DIOVAN) 40 mg tablet Take 40 mg by mouth once daily. Problem List As Of Date 09/27/2023 Noted Resolved DIARRHEA NOS [R19.7] GASTROINTEST HEMORR NOS [K92.2] EXT HEMORRHOID W/O COMPL [K64.4] Other affections of shoulder region, not elsewh*07/17/2012 Encounter Status:Closed by AMIE FINK on 10/16/23 [facility] Absolute lymphocyte countOrd ered By: Kayley Thorne on 03-15-2023 Lymphocytes Auto (Unsp spec) [#/Vol] 2.57 10*3/uL 0.83-4.51 [facility] Basophil percentageOrdered B y: Kayley Thorne on 03-15-2023 Basophils/100 WBC (Bld) 0.9 % 0-1 [facility] Bilirubin [Mass/Vol] 1.00 mg/dL 0.20-1.00 [facility] Comment on above: For patients on eltr ombopag therapy, use of Dimension [place] TBIL is not recommended. Chloride [Moles/Vol] 109 mmol/L 98-107 [facility] Cholesterol [Mass/Vol] 194 mg/dL <200 [facility] Comment on above: <200 mg/dL Desirable 200-240 mg/dL Borderline >240 mg/dL High Risk Eosinophils/100 WBC (Bld) 6.5 % 0-5 [facility] Glucose [Mass/Vol] 110 mg/dL 74-106 [facility] Comment on above: Fasting Glucose resu lt from 100 to 125 mg/dL suggests IMPAIRED HOMEOSTASIS per A.D.A. criteria. Neutrophils (Bld) [#/Vol] 4.5 10*3/uL 2.0-7.7 [facility] Neutrophils/100 WBC (Bld) 53.1 % 47-70 [facility] Potassium [Moles/Vol] 4.1 mmol/L 3.5-5.1 [facility] Protein [Mass/Vol] 7.0 g/dL 6.4-8.2 [facility] Sodium [Moles/Vol] 139 mmol/L 136-145 [facility] Triglyceride [Mass/Vol] 98 mg/dL <199 [facility] Comment on above: The drugs N-Acetylcy steine and Metamizole may falsely depress this assay.Serum Triglycerides Reference Interval Normal <150 mg/dL Borderline high 150 - 199 mg/dL High 200 - 499 mg/dL Very High > or = 500 mg/dL WBC (Bld) [#/Vol] 8.5 10*3/uL 4.4-11.0 [facility] Blood erythrocytes count (nu mber/volume)Ordered By: Kayley Thorne on 03-15-2023 RBC (Bld) [#/Vol] 4.56 10*6/uL 4.6-6.2 [facility] Blood hemoglobin measurement (mass/volume)Ordered By: Kayley Thorne on 03-15-2023 Hemoglobin (Bld) [Mass/Vol] 15.2 g/dL 13.0-16.5 [facility] Blood lymphocytes/100 leukoc ytesOrdered By: Kayley Thorne on 03-15-2023 Lymphocytes/100 WBC (Bld) 30.2 % 19-41 [facility] Blood monocytes/100 leukocyt esOrdered By: Kayley Thorne on 03-15-2023 Monocytes/100 WBC (Bld) 9.2 % 0-10 [facility] Blood platelet mean volumeOr dered By: Kayley Thorne on 03-15-2023 Platelet mean volume (Bld) [Entitic vol] 9.2 fL 6.2-12.0 [facility] Determination of erythrocyte mean corpuscular volume (MCV)Ordered By: Kayley Thorne on 03-15-2023 MCV (RBC) [Entitic vol] 97.1 fL 80-94 [facility] Hematocrit Auto (Bld) [Volum e fraction]Ordered By: Kayley Thorne on 03-15-2023 Hematocrit (Bld) [Volume fraction] 44.3 % 40-54 [facility] - Chemistry and C hemistry - challengeOrdered By: Kayley Thorne on 03-15-2023 ALP [Catalytic activity/Vol] 66 U/L 45-117 [facility] ALT [Catalytic activity/Vol] 23 U/L 16-61 [facility] CO2 [Moles/Vol] 26.0 mmol/L 21.0-32.0 [facility] Globulin (S) [Mass/Vol] 3.4 g/dL 2.2-4.2 [facility] Urea nitrogen/Creatinine [Mass ratio] 14.9 mg/mg 10-20 [facility] - Hematology and Cell countsOrdered By: Kayley Thorne on 03-15-2023 Erythrocyte distribution width (RBC) [Entitic vol] 42.8 fL 35.1-43.9 [facility] Erythrocyte distribution width (RBC) [Ratio] 11.9 % 11.6-14.6 [facility] Immature granulocytes/100 WBC (Bld) 0.100 % 0.0-0.9 [facility] Comment on above: IG% - Immature Granu locytes (promyelocytes, myelocytes and metamyelocytes) > 1% indicates that a LEFT SHIFT is Present. MCH (RBC) [Entitic mass] 33.3 pg 27.0-32.0 [facility] Nucleated RBC/100 WBC (Bld) [Ratio] 0 % 0-5 [facility] MCHC Auto (RBC) [Mass/Vol]Or dered By: Kayley Thorne on 03-15-2023 MCHC (RBC) [Mass/Vol] 34.3 g/dL 32-36 [facility] No Panel InformationOrdered By: Kayley Thorne on 03-15-2023 Estimated GFR (MDRD) Amer 94 mL/min >60 [facility] Comment on above: GFR Calc Estimated GFR (MDRD) Non-Af Amer 78 mL/min >60 [facility] Comment on above: Non- GFR Calc Platelets bldOrdered By: Soham Thorne on 03-15-2023 Platelets (Bld) [#/Vol] 243 10*3/uL 150-450 [facility] Serum or plasma albumin darling urement (mass/volume)Ordered By: Kayley Thorne on 03-15-2023 Albumin [Mass/Vol] 3.6 g/dL 3.2-5.0 [facility] Serum or plasma albumin/glob ulin mass ratioOrdered By: Kayley Thorne on 03-15-2023 Albumin/Globulin [Mass ratio] 1.1 {ratio} 0.9-2.4 [facility] Serum or plasma calcium darling urement (mass/volume)Ordered By: Kayley Thorne on 03-15-2023 Calcium [Mass/Vol] 9.0 mg/dL 8.5-10.1 [facility] Serum or plasma cholesterol in HDL measurement (mass/volume)Ordered By: Kayley Thorne on 03-15-2023 Cholesterol in HDL [Mass/Vol] 73 mg/dL >40 [facility] Comment on above: The drugs N-Acetylcy steine and Metamizole may falsely depress this assay. Reference Range HDL <40 mg/dL Low HDL Cholesterol HDL >or= 60 mg/dL High HDL Cholesterol Serum or plasma cholesterol in VLDL measurement (mass/volume)Ordered By: Kayley Thorne on 03-15-2023 Cholesterol in VLDL [Mass/Vol] 20 mg/dL 5-40 [facility] Serum or plasma creatinine m easurement (mass/volume)Ordered By: Kayley Thorne on 03-15-2023 Creatinine [Mass/Vol] 1.01 mg/dL 0.70-1.30 [facility] Comment on above: The validity of the calculated GFR & GFRAA in patients over 70 years has not been determined. Clinical correlation is essential. Serum or plasma low density lipoprotein (LDL) cholesterol measurement (mass/volume)Ordered By: Kayley Thorne on 03-15-2023 Cholesterol in LDL [Mass/Vol] 101 mg/dL 0-130 [facility] Serum or plasma urea nitroge n measurement (mass/volume)Ordered By: Kayley Thorne on 03-15-2023 Urea nitrogen [Mass/Vol] 15 mg/dL 7-18 [facility] Thin prep Papanicolaou smear with manual screeningOrdered By: Kayley Thorne on 03-15-2023 Thin prep Papanicolaou smear with manual screening 42 U/L 15-37 [facility] Thin prep Papanicolaou smear with manual screening 4 5-15 [facility] Clinical Summary: Anton licona 11-02-2021 MC25 OP Hand Invalid Interpretation Code [facility] Work Phone: Clinical Summary: Anton licona 09-21-2021 MC25 OP Hand Invalid Interpretation Code [facility] Hand [facility] Work Phone: Office Visit: Postop - subse quent visit, Rm: 3on 09-21-2021 NEGATED: Highlighted rowxray history of the Left hand on 08/10/2021 at [facility] Invalid Interpretation Code [facility] Work Phone: Coumadin Management: Teja n Calcon 06-09-2017 INR Coag RelTime (Bld) 2 to 3 Invalid Interpretation Code [facility] Work Phone: INR Coag RelTime (Bld) Hospital lab Invalid Interpretation Code [facility] Work Phone: INR Coag RelTime (PPP) 1.5 {INR} Invalid Interpretation Code [facility] Work Phone: Prothrombin time (PT) Coag time (PPP) 17.9 s Invalid Interpretation Code [facility] Work Phone: Lab Report: Prothrombin Time w/INRon 06-09-2017 Prothrombin time (PT) Coag time (PPP) 17.9 s High 11.7-14.9 [facility] Work Phone: Office Visiton 05-04-2017 Dietary management education, guidance, and counseling (procedure) yes Invalid Interpretation Code [facility] Work Phone: Documentation of current medications (procedure) Done Invalid Interpretation Code [facility] Work Phone: Tobacco use [facility] Never smoker Invalid Interpretation Code [facility] Work Phone: Office Visit: Wade 04-20-20 17 Fall risk assessment No Invalid Interpretation Code [facility] Work Phone: Replaced Document: Percy PITTS Observationson 04-20-2017 EKG QRS axis -56 deg Invalid Interpretation Code [facility] Work Phone: Interpretation Sinus Rhythm -Inferior infarct -age undetermined -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 Left ventricular Ejection fraction 55 % Invalid Interpretation Code [facility] Work Phone: Lab Report: (P) Body Fluid C ell Count+Diffon 09-17-2015 COLOR/BF YELLOW Invalid Interpretation Code [facility] Work Phone: Lab Report: Crystals, Body F luidon 09-17-2015 CRYSTALS/BF SYNOVIAL Invalid Interpretation Code [facility] Work Phone: PATH REV Will follow Invalid Interpretation Code [facility] Work Phone: Replaced Document: (P) Body Fluid Cell Count+Diffon 09-17-2015 BF MN WBC% 79.1 % Invalid Interpretation Code [facility] Work Phone: BF PMN WBC% 20.9 % Invalid Interpretation Code [facility] Work Phone: BFTC# 0.306 10 3/ul Invalid Interpretation Code [facility] Work Phone: erythrocyte count, body fluid 0.63032 10 6/UL Invalid Interpretation Code [facility] Work Phone: leukocyte count, body fluid 0.297 10 3/UL Invalid Interpretation Code [facility] Work Phone: Replaced Document: (P) Synov ial Fluid RBC, WBC AND Diffon 09-17-2015 SYNOVIAL RBC 0.002 10 6/UL High 0 [facility] Work Phone: SYNOVIAL WBC 0.2970 10 3UL High 0.000-0.002 [facility] Work Phone: Replaced Document: Synovial Fluid RBC, WBC AND Diffon 09-17-2015 appearance, body fluid Cloudy Invalid Interpretation Code CLEAR [facility] Work Phone: Lymphocytes/100 leukocytes 32 % Invalid Interpretation Code [facility] Work Phone: Monocytes 52 % Invalid Interpretation Code [facility] Work Phone: NEUTROPHIL 15 % Invalid Interpretation Code 0-25 [facility] Work Phone: OTHER CELL /SYN 1 % Invalid Interpretation Code [facility] Work Phone: SYNOVIAL COLOR Yellow Invalid Interpretation Code [facility] Work Phone: SYNOVIAL SOURCE RKNEE Invalid Interpretation Code [facility] Work Phone: Lab Report: Lipid Profileon 08-13-2015 Cholesterol 219 mg/dL High 200 [facility] Work Phone: HDL Cholesterol 62 mg/dL Invalid Interpretation Code [facility] Work Phone: LDL Cholesterol 127 mg/dL Invalid Interpretation Code 0-130 [facility] Work Phone: Triglyceride 149 mg/dL Invalid Interpretation Code [facility] Work Phone: very low density lipoproteins 30 mg/dL Invalid Interpretation Code 5-40 [facility] Work Phone: Lab Report: Liver Profileon 08-13-2015 Alanine aminotransferase (ALT) 44 U/L Invalid Interpretation Code 12-78 [facility] Work Phone: Albumin 3.6 g/dL Invalid Interpretation Code 3.4-5.0 [facility] Work Phone: Alkaline phosphatase (ALP) 72 U/L Invalid Interpretation Code 50-136 [facility] Work Phone: Aspartate aminotransferase (AST) 65 U/L High 15-37 [facility] Work Phone: Bilirubin (direct) 0.27 mg/dL Invalid Interpretation Code 0.00-0.30 [facility] Work Phone: Bilirubin (total) 1.40 mg/dL High 0.20-1.00 [facility] Work Phone: Globulin 3.5 g/dL Invalid Interpretation Code 2.3-3.5 [facility] Work Phone: Protein 7.1 g/dL Invalid Interpretation Code 6.4-8.2 [facility] Work Phone: Office Visiton 04-06-2015 cardiac risk group B Invalid Interpretation Code [facility] Work Phone: General cardiovascular disease 10Y risk [#] Downing.D'Agostcash 4 % Invalid Interpretation Code [facility] Work Phone: Replaced Document: Percy Clifton CG Observationson 04-09-2014 Pulse (Heart Rate) 423 ms Invalid Interpretation Code [facility] Work Phone: Lab Report: CBCDon 4 ANC 2.5 X10 3/UL Normal 2.0-7.7 [facility] Work Phone: Basophils/100 WBC Auto (Bld) 0.8 % Normal 0-1 [facility] Work Phone: Eosinophils/100 leukocytes 6.4 % High 0-5 [facility] Work Phone: Erythrocytes (RBC) 4.03 10*6/uL Low 4.6-6.[address] [facility] Work Phone: Hematocrit (HCT) 39.1 % Low 40-54 [facility] Work Phone: Hemoglobin mass conc (Bld) 13.4 g/dL Normal 13.0-16.5 [facility] Work Phone: Lymphocytes/100 leukocytes 29.7 % Normal 19-41 [facility] Work Phone: MCH 33.3 pg High 27.0-32.0 [facility] Work Phone: MCHC mass conc (RBC) 34.3 G/GL Normal 32-[address] [facility] Work Phone: MCV 97.0 fL High 80-94 [facility] Work Phone: Monocytes/100 leukocytes 11.9 % High 0-10 [facility] Work Phone: Neutrophils/100 WBC Auto (Bld) 51.0 % Normal 47-70 [facility] Work Phone: Platelets 187 10*3/mm3 Normal 150-450 [facility] Work Phone: PMV by Laura 9.8 fL Normal 6.2-12.0 [facility] Work Phone: WBC (Leukocytes) 4.9 10*3/uL Normal 4.4-11.0 [facility] Work Phone: Lab Report: BMPon 04-21-2012 Calcium 8.9 mg/dL Normal 8.5-10.1 [facility] Work Phone: Chloride 101 mmol/L Normal 98-107 [facility] Work Phone: Creatinine 1.0 mg/dL Normal 0.8-1.3 [facility] Work Phone: Glucose mass conc 103 mg/dL Normal 70-110 [facility] Work Phone: Potassium molar conc 3.9 mmol/L Normal 3.5-5.[address] [facility] Work Phone: Sodium 136 mmol/L Normal 136-145 [facility] Work Phone: Urea nitrogen 14 mg/dL Normal 7-18 [facility] Work Phone: Lab Report: MGon 04-21-2012 Magnesium 2.0 mg/dL Normal 1.8-2.4 [facility] Work Phone: Vital Signs Date Time Vital Sign Value Performing Clinician Facility 03-06-2025 08:12-0400 Body mass index (BMI) [Ratio] 25.9 kg/m2 Dr. Dandre Ellsworth MD Work Phone: [facility] 03-06-2025 08:12-0400 Body weight 79.[address] Dandre Ellsworth MD Work Phone: [facility] 03-06-2025 08:12-0400 Diastolic blood pressure 67 mm[Hg] Dr. Dandre Ellsworth MD Work Phone: [facility] 03-06-2025 08:12-0400 Heart rate 53 /min Dr. Dandre Ellsworth MD Work Phone: [facility] 03-06-2025 08:12-0400 Respiratory rate 16 /min Dr. Dandre Ellsworth MD Work Phone: [facility] 03-06-2025 08:12-0400 Systolic blood pressure 132 mm[Hg] Dr. Dandre Ellsworth MD Work Phone: [facility] 09-27-2023 14:57-0500 Body height 174 cm Amie Fink MD Work Phone: [facility] 09-27-2023 14:57-0500 Body weight 77.11 kg Amie Fink MD Work Phone: [facility] 09-27-2023 14:57-0500 Respiratory rate 16 /min Amie Fink MD Work Phone: [facility] [facility] 01-12-2023 10:51-0400 Body height 175.[address] Dandre Ellsworth Work Phone: [facility] 01-12-2023 10:51-0400 Body mass index (BMI) [Ratio] 25.7 kg/m2 Dr. Dandre Ellsworth Work Phone: [facility] 01-12-2023 10:51-0400 Body weight 78.[address] Dandre Ellsworth Work Phone: [facility] 01-12-2023 10:51-0400 Diastolic blood pressure 71 mm[Hg] Dr. Dandre Ellsworth Work Phone: [facility] 01-12-2023 10:51-0400 Heart rate 54 /min Dr. Dandre Ellsworth Work Phone: [facility] 01-12-2023 10:51-0400 Respiratory rate 18 /min Dr. Dandre Ellsworth Work Phone: [facility] 01-12-2023 10:51-0400 SaO2% (BldA) [Mass fraction] 99 % Dr. Dandre Ellsworth Work Phone: [facility] 01-12-2023 10:51-0400 Systolic blood pressure 125 mm[Hg] Dr. Dandre Ellsworth Work Phone: [facility] 11-06-2022 10:14-0400 Body mass index (BMI) [Ratio] 25.8 kg/m2 Dr. Dandre Ellsworth Work Phone: [facility] 11-06-2022 10:14-0400 Body temperature 97.4 [degF] Dr. Dandre Ellsworth Work Phone: [facility] 11-06-2022 10:14-0400 Body weight 79.[address] Dandre Ellsworth Work Phone: [facility] 11-06-2022 10:14-0400 Diastolic blood pressure 62 mm[Hg] Dr. Dandre Ellsworth Work Phone: [facility] 11-06-2022 10:14-0400 Heart rate 60 /min Dr. Dandre Ellsworth Work Phone: [facility] 11-06-2022 10:14-0400 Systolic blood pressure 122 mm[Hg] Dr. Dandre Ellsworth Work Phone: [facility] 04-20-2017 07:48-0400 BMI (Body Mass Index) 25.3 kg/m2 [facility] Work Phone: 04-20-2017 07:48-0400 BP Diastolic 70 mm[Hg] [facility] Work Phone: 04-20-2017 07:48-0400 BP Systolic 144 mm[Hg] [facility] Work Phone: 04-20-2017 07:48-0400 Height 177.8 cm [facility] Work Phone: 04-20-2017 07:48-0400 Pulse (Heart Rate) 73 /min [facility] Work Phone: 04-20-2017 07:48-0400 Respiratory Rate 20 /min [facility] Work Phone: 04-20-2017 07:48-0400 Weight 79.97 kg F[facility]A [facility] Work Phone: 04-06-2016 16:40-0400 BSA (Body Surface Area) 2.01 m2 [facility] Work Phone: 09-08-2011 16:11-0500 Pulse (Heart Rate) 57 /min [facility] Work Phone: NEGATED: Highlighted [id number] 11:31-0400 Body height 173.99 cm Louisa Banerjee [facility] Work Phone: NEGATED: Highlighted [id number] 11:31-0400 Body height 174 cm Louisa Banerjee [facility] Work Phone: NEGATED: Highlighted [id number] 11:31-0400 Body mass index (BMI) [Ratio] 27.37 kg/m2 Louisa Banerjee LPN [facility] Work Phone: NEGATED: Highlighted [id number] 11:31-0400 Body weight 82.56 kg Louisa Banerjee LPN [facility] Work Phone: NEGATED: Highlighted [id number] 11:31-0400 Body weight 83 kg Louisa Banerjee LPN [facility] Work Phone: NEGATED: Highlighted [id number] 08:52-0500 Body height 173.99 cm Crissy Ziats AT [facility] Work Phone: NEGATED: Highlighted [id number] 08:52-0500 Body height 174 cm Crissy Ziats AT [facility] Work Phone: NEGATED: Highlighted [id number] 08:52-0500 Body mass index (BMI) [Ratio] 27.37 kg/m2 Crissy Ziats AT [facility] Work Phone: NEGATED: Highlighted [id number] 08:52-0500 Body weight 82.56 kg Crissy Ziats AT [facility] Work Phone: NEGATED: Highlighted [id number] 08:52-0500 Body weight 83 kg Crissy Ziats AT [facility] Work Phone: Encounters Encounter Date Encounter Type Care Provider Facility Start: 04-01-2025 ambulatory Kayley MARIE Facility:[facility] Start: 03-06-2025 End: 03-06-2025 Patient encounter procedure Kayley MARIE -[facility] Work Phone: Start: 03-06-2025 End: 03-06-[address] Dandre Ellsworth MD Work Phone: -[facility] Start: 03-03-2025 End: 03-03-[address] Dandre Ellsworth MD Work Phone: [facility] Start: 03-03-2025 End: 03-03-2025 Patient encounter procedure Earnest McMorrow DATA ENTRY REPRESENTATIVE-C -[facility] Work Phone: Start: 03-03-2025 End: 03-03-2025 ambulatory Dandre Ellsworth Facility:[facility] Start: 09-27-2023 End: 09-27-2023 ambulatory AMIE FINK Facility:[facility] Start: 09-27-2023 End: 09-27-2023 Patient encounter procedure Amie Fink MD Work Phone: [facility] Comment on above: Pain in right wrist (Primary Dx) Start: 06-30-2023 End: 06-30-2023 ambulatory [facility] Work Phone: Start: 06-30-2023 End: 06-30-2023 Patient encounter procedure [facility] Work Phone: Start: 03-15-2023 End: 03-15-[address] Dandre Ellsworth Work Phone: [facility] Work Phone: Start: 03-15-2023 End: 03-15-[address] Dandre Ellsworth Work Phone: [facility] Work Phone: Start: 02-07-2023 Non-patient / Non-visit Dr. Malu Ellsworth Work Phone: [facility] Start: 02-07-2023 End: 02-07-[address] Dandre Ellsworth Work Phone: [facility] Work Phone: Start: 02-07-2023 End: 02-07-[address] [facility] Work Phone: Start: 01-12-2023 End: 01-12-[address] Dandre Ellsworth Work Phone: [facility] Work Phone: Start: 11-06-2022 End: 11-06-[address] Dandre Ellsworth Work Phone: [facility] Work Phone: Procedures Date Procedure Procedure Detail Performing Clinician Start: 03-03-2025 Prostate specific an tigen measurement Dr. Dandre Ellsworth MD Work Phone: Comment on above: This test was perfor med using the [employer] tPSA method. Measured values of a patient sample can vary depending on the testing procedure used. PSA values determined on patient samples by different testing procedures cannot be used interchangeably. If there is a change in PSA assays while monitoring therapy, sequential testing should be performed to confirm baseline values. Start: 06-30-2023 Plain x-ray of hand Start: 11-02-2021 End: 11-02-2021 BP scrn no perf at interval Jacinda Nationg PA-C Work Phone: Start: 11-02-2021 End: 11-02-2021 Calc BMI abv up jaky f/u Jacinda Diaso ng PA-C Work Phone: Start: 11-02-2021 End: 11-02-2021 Current tobacco non-user cad cap copd pv dm Jacinda Nationg PA-C Work Phone: Start: 11-02-2021 End: 11-02-2021 Docrev cur meds by hilda Nationg PA-C Work Phone: Start: 11-02-2021 End: 11-02-2021 Osteoarthritis symptoms&funcjal status asses Jacinda Nationg PA-C Work Phone: Start: 11-02-2021 End: 11-02-2021 Pain neg no plan Jacinda B Huerta PA- C Work Phone: Start: 11-02-2021 End: 11-02-2021 Patient encounter procedure Jacinda B Huerta PA-C Work Phone: Start: 09-21-2021 End: 09-21-2021 Betamethasone acet&sod phosp Jacinda B Huerta PA-C Work Phone: Start: 09-21-2021 End: 09-21-2021 BP scrn no perf at interval Jacinda B Huerta PA-C Work Phone: Start: 09-21-2021 End: 09-21-2021 Calc BMI out nrm jaky nof/u Jacinda B Huerta PA-C Work Phone: Start: 09-21-2021 End: 09-21-2021 Current tobacco non-user cad cap copd pv dm Jacinda B Huerta PA-C Work Phone: Start: 09-21-2021 End: 09-21-2021 Docrev cur meds by hilda reddy Jacinda B Huerta PA-C Work Phone: Start: 09-21-2021 End: 09-21-2021 Injection 1 tendon sheath/ligament aponeurosis Jacinda B Huerta PA-C Work Phone: Start: 09-21-2021 End: 09-21-2021 Osteoarthritis symptoms&funcjal status asses Jacinda B Huerta PA-C Work Phone: Start: 09-21-2021 End: 09-21-2021 Pain neg no plan Jacinda B Huerta PA- C Work Phone: Start: 09-21-2021 End: 09-21-2021 Patient encounter procedure Jacinda B Huerta PA-C Work Phone: Start: 04-20-2017 End: 04-20-2017 Ecg routine ecg w/least 12 lds w/i&r Dandre Guardado Alyse DATA ENTRY REPRESENTATIVE Work Phone: Start: 04-20-2017 End: 04-20-2017 Follow Up Appt 1 year Dandre Guardado Alyse DATA ENTRY REPRESENTATIVE Work Phone: Start: 04-20-2017 End: 04-20-2017 PFM Dandre Guardado Alyse DATA ENTRY REPRESENTATIVE Work Phone: Start: 11-24-2016 End: 12-23-2016 INR in Platelet poor plasma by Coagulation assay Roger Alvarado MD Start: 05-16-2016 Dora moses MD Work Phone: Start: 04-06-2016 End: 04-12-2016 Ecg routine ecg w/least 12 lds w/i&r Roger Alvarado MD Start: 04-06-2016 End: 04-12-2016 Follow Up Appt 1 year Roger Flores Start: 04-06-2016 End: 04-12-2016 PFM Roger Alvarado MD Start: 11-06-2015 End: 01-15-2016 INR in Platelet poor plasma by Coagulation assay Roger Alvarado MD Start: 09-17-2015 End: 09-29-2015 Arthrocentesis aspir&/inj major jt/bursa w/o us Nidhi Lofton Work Phone: Start: 04-06-2015 End: 08-13-2015 *Hepatic Function Panel Roger Alvarado MD Start: 04-06-2015 End: 04-07-2015 Ecg routine ecg w/least 12 lds w/i&r Roger Alvarado MD Start: 04-06-2015 End: 04-07-2015 Follow Up Appt 1 year Roger Flores Start: 04-06-2015 End: 08-13-2015 Lipid 1996 panel - Serum or Plasma Roger Alvarado MD Start: 04-06-2015 End: 04-07-2015 PFM Roger Alvarado MD Start: 04-09-2014 End: 03-16-2017 Follow Up Appt 6 months Kayley stone PA-C Work Phone: Start: 04-09-2014 End: 03-16-2017 PFM Kayley Thorne PA-C Work Phone: Start: 11-25-2013 End: 01-10-2014 *Hepatic Function Panel Roger Alvarado MD Start: 10-07-2013 End: 10-07-2013 Ecg routine ecg w/least 12 lds w/i&r Roger Alvarado MD Start: 10-07-2013 End: 10-07-2013 Follow Up Appt 6 months Roger Alvarado MD Start: 10-07-2013 End: 10-07-2013 MMM Roger Alvarado MD Start: 03-11-2013 End: 10-07-2013 *Hepatic Function Panel Roger Alvarado MD Start: 03-11-2013 End: 03-11-2013 Echocardiography Roger Alvarado MD Start: 03-11-2013 End: 10-07-2013 Lipid 1996 panel - Serum or Plasma Roger Alvarado MD Start: 03-11-2013 End: 03-11-2013 PFM Roegr Alvarado MD Start: 03-06-2013 End: 03-11-2013 *BMP Jose Guadarrama MD Start: 03-06-2013 End: 03-11-2013 *Hepatic Function Panel Jose Guadarrama MD Start: 03-06-2013 End: 03-11-2013 Lipid 1996 panel - Serum or Plasma Jose Guadarrama MD Start: 03-06-2013 End: 03-11-2013 Magnesium [Mass/volume] in Serum or Plasma Jose Guadarrama MD Start: 08-30-2012 End: 08-30-2012 Follow Up Appt 6 months Jose Guadarrama MD Start: 08-15-2012 End: 12-04-2012 *BMP Jose Guadarrama MD Start: 08-15-2012 End: 12-04-2012 *CBC with Differential Jose Guadarrama MD Start: 08-15-2012 End: 12-04-2012 *Hepatic Function Panel Jose Guadarrama MD Start: 08-15-2012 End: 12-04-2012 Lipid 1996 panel - Serum or Plasma Jose Guadarrama MD Start: 08-15-2012 End: 12-04-2012 Magnesium [Mass/volume] in Serum or Plasma Jose Guadarrama MD Start: 04-24-2012 End: 06-25-2012 Follow Up Appt 4 months Jose Guadarrama MD Start: 12-23-2011 End: 04-24-2012 *BMP Jose Guadarrama MD Start: 12-23-2011 End: 04-24-2012 *CBC with Differential Jose Guadarrama MD Start: 12-23-2011 End: 04-24-2012 *Hepatic Function Panel Jose Guadarrama MD Start: 12-23-2011 End: 12-23-2011 Ecg routine ecg w/least 12 lds w/i&r Jose Guadarrama MD Start: 12-23-2011 End: 12-23-2011 Follow Up Appt 4 months Jose Guadarrama MD Start: 12-23-2011 End: 04-24-2012 Lipid 1996 panel - Serum or Plasma Jose Guadarrama MD Start: 12-23-2011 End: 04-24-2012 Magnesium [Mass/volume] in Serum or Plasma Jose Guadarrama MD Start: 09-21-2011 End: 12-23-2011 *Hepatic Function Panel Jose Guadarrama MD Start: 09-21-2011 End: 12-23-2011 Lipid 1996 panel - Serum or Plasma Jose Guadarrama MD Start: 09-08-2011 End: 09-09-2011 Ecg routine ecg w/least 12 lds w/i&r Jose Guadarrama MD Start: 09-08-2011 End: 09-08-2011 Follow Up Appt Other Jose Guadarrama MD Start: 09-08-2011 End: 12-23-2011 Venous doppler Jose Guadarrama MD Start: 07-11-2011 End: 09-08-2011 INR in Platelet poor plasma by Coagulation assay Jose Guadarrama MD NEGATED: Highlighted rowStart: 11-02-2021 End: 11-02-2021 Documentation of current medications Louisa Banerjee LPN NEGATED: Highlighted rowStart: 09-21-2021 End: 09-21-2021 Documentation of current medications Crissy Friedman AT Plan of Treatment Date Care Activity Detail Author Start: 05-16-2026 Screening for malignant neoplasm of colon [facility] Start: 03-06-2025 End: 03-06-2025 Evaluation of diagnostic study results [facility] Start: 08-14-2023 Advance Directive Discussion Advance Directive Discussion [facility] Start: 08-14-2023 Depression Assessment Depression Assessment [facility] Start: 05-24-2023 Urine microalbumin profile DTaP,Tdap,Td Vaccine (2 - Td or Tdap) [facility] Start: 03-01-2022 End: 03-01-2022 Patient encounter procedure Appointment [facility] Work Phone: Start: 11-02-2021 End: 11-02-2021 Patient encounter procedure Appointment [facility] Work Phone: Start: 09-27-2021 End: 09-27-2021 Patient encounter procedure Appointment [facility] Work Phone: Start: 09-21-2021 End: 09-21-2021 Patient encounter procedure Appointment [facility] Work Phone: Start: 09-21-2021 End: 09-21-2021 Radex hand minimum 3 views XR HAND [facility] Work Phone: Start: 03-31-2021 Pneumococcal Vaccine: 65+ (2 of 2 - PCV) Pneumococcal Vaccine: 65+ (2 of 2 - PCV) [facility] Start: 09-13-2019 Shingrix Vaccine (2 of 2) Shingrix Vaccine (2 of 2) [facility] Start: 04-23-2018 End: 04-23-2018 Appointment Appointment [facility] Work Phone: Start: 05-04-2017 End: 05-04-2017 Radex hip unilateral with pelvis 2-3 views X-Ray, Hip, unilateral, with pelvis; 2-3 views [facility] Work Phone: Start: 05-04-2017 End: 05-04-2017 Radex shoulder complete minimum 2 views X-Ray, Shoulder [facility] Work Phone: Start: 04-20-2017 End: 04-20-2017 *Hepatic Function Panel *Hepatic Function Panel [facility] Work Phone: Start: 04-20-2017 End: 04-20-2017 Follow Up Appt 1 year Follow Up Appt 1 year [facility] Work Phone: Start: 04-20-2017 End: 04-20-2017 Lipid panel [AGGREGATE] *Lipid Profile CC PCP [facility] Work Phone: Start: 04-20-2017 End: 04-20-2017 PFM PFM [facility] Work Phone: Start: 11-24-2016 End: 12-23-2016 INR Coag RelTime (PPP) *PT/INR - Standing Order [facility] Work Phone: Start: 04-06-2016 End: 04-12-2016 Ecg routine ecg w/least 12 lds w/i&r EKG (In office) [facility] Work Phone: Start: 04-06-2016 End: 04-12-2016 Follow Up Appt 1 year Follow Up Appt 1 year [facility] Work Phone: Start: 04-06-2016 End: 04-12-2016 PFM PFM [facility] Work Phone: Start: 11-06-2015 End: 01-15-2016 INR Coag RelTime (PPP) *PT/INR - Standing Order [facility] Work Phone: Start: 09-23-2015 End: 09-23-2015 Physical Therapy General [facility], [address] [place] [address], [id number] [facility] Work Phone: Start: 09-17-2015 End: 09-17-2015 *BFRW - Body Fluid RBC, WBC & DIFF *BFRW - Body Fluid RBC, WBC & DIFF [facility] Work Phone: Start: 09-17-2015 End: 09-17-2015 Bacteria identified in Body fluid by Culture *CUBF- Culture, Body Fluid [facility] Work Phone: Start: 09-17-2015 End: 09-17-2015 Crystals [type] in Body fluid by Light microscopy *RUDOLPH - Crystals, Body Fluid [facility] Work Phone: Start: 09-17-2015 End: 09-17-2015 Glucose [Mass/volume] in Body fluid *GLUBF - Glucose, Body Fluid [facility] Work Phone: Start: 09-17-2015 End: 09-17-2015 Protein in fluid *PROBF - Protein, Body Fluid [facility] Work Phone: Start: 09-17-2015 End: 09-17-2015 Radiologic exam knee complete 4/more views X-Ray, Knee [facility] Work Phone: Start: 04-06-2015 End: 08-13-2015 *Hepatic Function Panel *Hepatic Function Panel [facility] Work Phone: Start: 04-06-2015 End: 04-07-2015 Ecg routine ecg w/least 12 lds w/i&r EKG (In office) [facility] Work Phone: Start: 04-06-2015 End: 04-07-2015 Follow Up Appt 1 year Follow Up Appt 1 year [employer] [facility] Work Phone: Start: 04-06-2015 End: 08-13-2015 Lipid panel [AGGREGATE] *Lipid Profile CC PCP [facility] Work Phone: Start: 04-06-2015 End: 04-07-2015 PFM PFM [facility] Work Phone: Start: 2014 RSV Vaccine (1 - 1-dose 60+ series) RSV Vaccine (1 - 1-dose 60+ series) [facility] Start: 04-09-2014 End: 03-16-2017 Follow Up Appt 6 months Follow Up Appt 6 months [facility] Work Phone: Start: 04-09-2014 End: 03-16-2017 PFM PFM [facility] Work Phone: Start: 11-25-2013 End: 01-10-2014 *Hepatic Function Panel *Hepatic Function Panel [facility] Work Phone: Start: 10-07-2013 End: 10-07-2013 Ecg routine ecg w/least 12 lds w/i&r EKG (In office) [facility] Work Phone: Start: 10-07-2013 End: 10-07-2013 Follow Up Appt 6 months Follow Up Appt 6 months [facility] Work Phone: Start: 10-07-2013 End: 10-07-2013 MMM MMM [facility] Work Phone: Start: 03-11-2013 End: 10-07-2013 *Hepatic Function Panel *Hepatic Function Panel [facility] Work Phone: Start: 03-11-2013 End: 03-11-2013 Echocardiography Echocardiogram (complete) [facility] Work Phone: Start: 03-11-2013 End: 03-11-2013 Follow Up Appt 6 months Follow Up Appt 6 months [facility] Work Phone: Start: 03-11-2013 End: 10-07-2013 Lipid panel [AGGREGATE] *Lipid Profile CC PCP [facility] Work Phone: Start: 03-11-2013 End: 03-11-2013 PFM PFM [facility] Work Phone: Start: 03-06-2013 End: 03-11-2013 *BMP *BMP [facility] Work Phone: Start: 03-06-2013 End: 03-11-2013 *Hepatic Function Panel *Hepatic Function Panel [facility] Work Phone: Start: 03-06-2013 End: 03-11-2013 Lipid panel [AGGREGATE] *Lipid Profile [facility] Work Phone: Start: 03-06-2013 End: 03-11-2013 Magnesium *Magnesium [facility] Work Phone: Start: 08-30-2012 End: 08-30-2012 Follow Up Appt 6 months Follow Up Appt 6 months [facility] Work Phone: Start: 08-15-2012 End: 12-04-2012 *BMP *BMP [facility] Work Phone: Start: 08-15-2012 End: 12-04-2012 *CBC with Differential *CBC with Differential [facility] Work Phone: Start: 08-15-2012 End: 12-04-2012 *Hepatic Function Panel *Hepatic Function Panel [facility] Work Phone: Start: 08-15-2012 End: 12-04-2012 Lipid panel [AGGREGATE] *Lipid Profile [facility] Work Phone: Start: 08-15-2012 End: 12-04-2012 Magnesium *Magnesium [facility] Work Phone: Start: 04-24-2012 End: 06-25-2012 Follow Up Appt 4 months Follow Up Appt 4 months [facility] Work Phone: Start: 12-23-2011 End: 04-24-2012 *BMP *BMP [facility] Work Phone: Start: 12-23-2011 End: 04-24-2012 *CBC with Differential *CBC with Differential [facility] Work Phone: Start: 12-23-2011 End: 04-24-2012 *Hepatic Function Panel *Hepatic Function Panel [facility] Work Phone: Start: 12-23-2011 End: 12-23-2011 Ecg routine ecg w/least 12 lds w/i&r EKG (In office) [facility] Work Phone: Start: 12-23-2011 End: 12-23-2011 Follow Up Appt 4 months Follow Up Appt 4 months [facility] Work Phone: Start: 12-23-2011 End: 04-24-2012 Lipid panel [AGGREGATE] *Lipid Profile [facility] Work Phone: Start: 12-23-2011 End: 04-24-2012 Magnesium *Magnesium [facility] Work Phone: Start: 09-21-2011 End: 12-23-2011 *Hepatic Function Panel *Hepatic Function Panel [facility] Work Phone: Start: 09-21-2011 End: 12-23-2011 Lipid panel [AGGREGATE] *Lipid Profile [facility] Work Phone: Start: 09-08-2011 End: 09-09-2011 Ecg routine ecg w/least 12 lds w/i&r EKG (In office) [facility] Work Phone: Start: 09-08-2011 End: 09-08-2011 Follow Up Appt Other Follow Up Appt Other [facility] Work Phone: Start: 09-08-2011 End: 09-08-2011 Venous doppler Venous doppler [facility] Work Phone: Start: 07-11-2011 End: 09-08-2011 INR Coag RelTime (PPP) *PT/INR [facility] Work Phone: Start: 1999 Diabetes Screening Diabetes Screening [facility] Start: 1999 Screening for malignant neoplasm of colon [facility] Start: 1989 Lipid panel Lipid Screening [facility] Start: 1972 Hepatitis C screening Hepatitis C Screening [facility] CBC W Auto Different ial panel - Blood [facility] Lipid 1996 panel - S mannie or Plasma [facility] Radionuclide imaging of perfusion of myocardium under exercise stress [facility] Immunizations Immunization Date Immunization Notes Care Provider Fa cility 11-09-2020 Tylor (Moderna) Dr. Dandre donovan Work Phone: [facility] 10-12-2020 Tylor (Moderna) Dr. Dandre donovan Work Phone: [facility] Payers Date Payer Category Payer Unknown [id number] [id number] Self-pay [id number] 2025 Unknown [id number] 2019 Medicare [id number] 2019 Medicare MEDICARE MEDICAR E A AND B [id number] 2019-Present [phone] [place] [address] Medicare [id number] 2017 Unknown [id number] Unknown [employer] [id number] Unknown [id number] Unknown [id number] Unknown [id number] Unknown [id number] Social History Date Type Detail Facility Start: 01-12-2023 End: 01-12-2023 Assertion Unknown if ever smoked [facility] Work Phone: Start: 1955 Sex Assigned At Male [facility] Start: 01-12-2023 [facility] Start: 09-27-2023 Alcohol intake Current drinke r of alcohol (finding) [facility] Start: 09-27-2023 History of Social function [facility] Start: 09-27-2023 Tobacco use panel [facility] National Score (1-10 0), lower number is lower risk 48 [facility] Start: 1955 Sex Assigned At Not on file [facility] Medical Equipment Procedure Code Equipment Code Equipment Origin al Text Equipment Identifier Dates 3.3MM DRILL BIT FDA Start: 11-21-2017 3.3MM X 40MM FDA Start: 11-21-2017 ANATO NEUTRAL AN GLE STEM FDA Start: 11-21-2017 BIOLOX DELTA CER MAIC FEM HEAD FDA Start: 11-21-2017 TORX 6.5MM BONE SCREW FDA Start: 11-21-2017 TRIATHLON X3 SOM Y INSERT FDA Start: 11-21-2017 TRIDENT KARIE ACETABULAR SHELL FDA Start: 11-21-2017 3.3MM DRILL BIT FDA Start: 11-21-2017 3.3MM X 40MM FDA Start: 11-21-2017 ANATO NEUTRAL AN GLE STEM FDA Start: 11-21-2017 BIOLOX DELTA CER MAIC FEM HEAD FDA Start: 11-21-2017 TORX 6.5MM BONE SCREW FDA Start: 11-21-2017 TRIATHLON X3 SOM Y INSERT FDA Start: 11-21-2017 TRIDENT KARIE ACETABULAR SHELL FDA Start: 11-21-2017 3.3MM DRILL BIT FDA Start: 11-21-2017 3.3MM X 40MM FDA Start: 11-21-2017 ANATO NEUTRAL AN GLE STEM FDA Start: 11-21-2017 BIOLOX DELTA CER MAIC FEM HEAD FDA Start: 11-21-2017 TORX 6.5MM BONE SCREW FDA Start: 11-21-2017 TRIATHLON X3 SOM Y INSERT FDA Start: 11-21-2017 TRIDENT KARIE ACETABULAR SHELL FDA Start: 11-21-2017 3.3MM DRILL BIT FDA Start: 11-21-2017 3.3MM X 40MM FDA Start: 11-21-2017 ANATO NEUTRAL AN GLE STEM FDA Start: 11-21-2017 BIOLOX DELTA CER MAIC FEM HEAD FDA Start: 11-21-2017 TORX 6.5MM BONE SCREW FDA Start: 11-21-2017 TRIATHLON X3 SOM Y INSERT FDA Start: 11-21-2017 TRIDENT KARIE ACETABULAR SHELL FDA Start: 11-21-2017 3.3MM DRILL BIT FDA Start: 11-21-2017 3.3MM X 40MM FDA Start: 11-21-2017 ANATO NEUTRAL AN GLE STEM FDA Start: 11-21-2017 BIOLOX DELTA CER MAIC FEM HEAD FDA Start: 11-21-2017 TORX 6.5MM BONE SCREW FDA Start: 11-21-2017 TRIATHLON X3 SOM Y INSERT FDA Start: 11-21-2017 TRIDENT KARIE ACETABULAR SHELL FDA Start: 11-21-2017 Clinical Notes 10-16-2023 to 03-06-2025 Note Date & Type Note Facility 03-06-2025 Evaluation note Diagnosis Onset Date Resolution Encounter for monitoring flecainide therapy acute March 06 8:17am Nonrheumatic mitral (valve) prolapse acute March 06, 2025 8:17am Cardiomyopathy in other diseases classified elsewhere chronic March 06, 2025 8:17am Essential hypertension chronic 2024 8:17am Paroxysmal atrial fibrillation chronic March 06, 2025 8:17am [facility] Work Phone: 1(316) 623-614003-04-2024 NoteHNO ID: [id number] Author: AMIE FINK MD Service: ? Author Type: Physician Type: Progress Notes Filed: 10/16/2023 13:37 Note Text: Patient presents with: Right Wrist - New HISTORY OF PRESENT ILLNESS Claudio Olvera is a 68 year old male right hand dominant who presents for evaluation of right wrist pain. The patient has been having symptoms for months. He has a remote history of a wrist injury some 50 years ago. He localizes this to the ulnar side of the wrist. He has undergone a prior injection which did not provide much relief. 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 Diabetes:No ALLERGIES ALLERGIES Allergen Reactions Emycin [Erythromyci* Zoloft [Sertraline * PHYSICAL EXAMINATION Resp 16 Ht 174 cm (5' 8.5) Wt 77.1 kg (170 lb) BMI 25.47 kg/m? Body mass index is 25.47 kg/m?. General Appearance Well appearing, alert, in no acute distress, well-hydrated, well nourished. Alert and oriented times: 3 Normal affect times: 3 Appears stated age and well nourished Gait and station:normal Right Upper Extremity Exam: Inspection shows normal alignment about the wrist No wounds or lacerations. No surgical incisions noted No atrophy or depigmentation at the site of prior injection Skin: WNL Tenderness to palpation: Tender along the ulnar side of the wrist ROM: Full composite fist Wrist flexion, extension, pronation/supination intact, nearly symmetric with the contralateral side Instability: none at the DRUJ No ECU instability Sensation:Normal sensation Atrophy: None Brisk capillary refill Special tests: Pain with ulnar loading grind REVIEW OF STUDIES X-rays reviewed from outside institution, 3 views of the right wrist demonstrate a remote nonunited ulnar styloid fracture. There is ulnar neutral variance. No acute fracture or dislocation noted. No lytic or erosive lesions. ASSESSMENT AND PLAN ASSESSMENT/PLAN: 1. Pain in right wrist - ICD9: 719.43, ICD10: M25.531 I reviewed the imaging with the patient and discussed diagnosis. 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 He has had previous injections which were not particularly helpful, the most recent of which was about 1 month ago. He would like to consider options and we will follow-up together as needed moving forward. Amie Fink MD Patient educated on treatment options for ulnar-sided wrist pain. Patient instructed to call the office with questions or concerns.[facility]03-04-2024 History of Present illness Narrative* Amie Fink MD - 10/16/2023 1:29 PM EST Patient presents with: Right Wrist - New HISTORY OF PRESENT ILLNESS Claudio Olvera is a 68 year old male right hand dominant who presents for evaluation of right wrist pain. The patient has been having symptoms for months. He has a remote history of a wrist injury some 50 years ago. He localizes this to the ulnar side of the wrist. He has undergone a prior injection which did not provide much relief. 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 Diabetes:No ALLERGIES ALLERGIES Allergen Reactions Emycin [Erythromyci* Zoloft [Sertraline * PHYSICAL EXAMINATION Resp 16 Ht 174 cm (5' 8.5) Wt 77.1 kg (170 lb) BMI 25.47 kg/m Body mass index is 25.47 kg/m . General Appearance Well appearing, alert, in no acute distress, well-hydrated, well nourished. Alert and oriented times: 3 Normal affect times: 3 Appears stated age and well nourished Gait and station:normal Right Upper Extremity Exam: Inspection shows normal alignment about the wrist No wounds or lacerations. No surgical incisions noted No atrophy or depigmentation at the site of prior injection Skin: WNL Tenderness to palpation: Tender along the ulnar side of the wrist ROM: Full composite fist Wrist flexion, extension, pronation/supination intact, nearly symmetric with the contralateral side Instability: none at the DRUJ No ECU instability Sensation:Normal sensation Atrophy: None Brisk capillary refill Special tests: Pain with ulnar loading grind REVIEW OF STUDIES X-rays reviewed from outside institution, 3 views of the right wrist demonstrate a remote nonunitedulnar styloid fracture. There is ulnar neutral variance. No acute fracture or dislocation noted. Nolytic or erosive lesions. ASSESSMENT AND PLAN ASSESSMENT/PLAN: 1. Pain in right wrist - ICD9: 719.43, ICD10: M25.531 I reviewed the imaging with the patient and discussed diagnosis. 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 He has had previous injections which were not particularly helpful, the most recent of which was about 1 month ago. He would like to consider options and we will follow-up together as needed moving forward. Amie Fink MD Patient educated on treatment options for ulnar-sided wrist pain. Patient instructed to call the office with questions or concerns. documented in this encounterGe[facility] HospitalEvaluation noteThere may be information available, but it has not been provided by the sender.[facility] Work Phone: Evaluation note* Diagnosis Onset Date Resolution Status Acute bacterial sinusitis ac quechan Bronchitis acute Nonrheumatic mitral (valve) prolapse acute Cardiomyopathy in other diseases classified elsewhere chronic Essential hypertension chron ic Hyperlipidemia chronic Paroxysmal atrial fibrillation chronic [facility] Work Phone: Evaluation note* Diagnosis Onset Date Resolution Status Nonrheumatic mitral (valve) prolapse acute Cardiomyopathy in other diseases classified elsewhere chronic Essential hypertension chron ic Hyperlipidemia chronic Paroxysmal atrial fibrillation chronic [facility] Work Phone: Evaluation noteNo assessment information available [facility] Work Phone: Evaluation note* Diagnosis Pain in right wrist- Primary Pain in joint, forearm documented in this encounter [facility]* Diagnosis Onset Date Resolution Status Admit Date Encounter for monitoring flecainide therapy acute March 06 8:17am Nonrheumatic mitral (valve) prolapse acute March 06, 2025 8:17am Cardiomyopathy in other dise ases classified elsewhere chronic March 06, 2025 8:17am Essential hypertension chronic Ju 2024 8:17am Hyperlipidemia chronic March 06, 2025 8:17am Paroxysmal atrial fibrillation chron ic March 06, 2025 8:17am [facility] Work Phone: InstructionsNo information available.[facility] Work Phone: Instructions* Instruction Description Start Date Patient advised to follow-up with Primary Care Physician for BMI management. [facility] Work Phone: Reason for referral (narrative)No reason for referral information availableEast Los Angeles Doctors Hospital Work Phone: Chief Complaint Chief Complaint Description Start Date left hand post Carpometacarp al interpositional arthroplasty ligament reconstruction; left thumb with flexor carpi radialis tendon transfer; Partial trapezoid resection; Endoscopic carpal tunnel release left on 06/25/2021 Preliminary chief co mplaint data, not yet signed by the author as of Chief Complaint Description Start Date left hand post Carpometacarp al interpositional arthroplasty ligament reconstruction; left thumb with flexor carpi radialis tendon transfer; Partial trapezoid resection; Endoscopic carpal tunnel release left on 06/25/2021 Preliminary chief co mplaint data, not yet signed by the author as of Advance Directives No Advanced Directives Records Found Advance Directive Response Recorded Date/ Time Living Will Yes November 06, 2017 10:09am Power of Director Digital Strategy Yes November 06 10:09am Advance Directive Response Recorded Date/ Time Living Will Yes November 06, 2017 9:09am Power of Director Digital Strategy Yes November 06 9:09am Documents on File Type Date Recorded Patient Teaching Associate Expl anation Advance Directive(s) 05/16/2016 2:15 PM Family History No Family History Records Found Relationship Condition Age at Onset Recorded Date/T terry father Atrial fibrillation Unknown mother Cardiomyopathy Unknown Chief Complaint and Reason for Visit Chief Complaint CONGESTED, DRAINAGE, COUGH 1 y fu PREV PFM PT PRECORDIAL PAIN Reason for Visit Acute bacterial sinu sitis Bronchitis Nonrheumatic mitral (valve) prolapse Cardiomyopathy in other diseases classified elsewhere Essential hypertension Hyperlipidemia Paroxysmal atrial fibrillation Chief Complaint 1 y fu PREV PFM PT PRECORDIAL PAIN E-ORDER Reason for Visit Nonrheumatic mitral (valve) prolapse Cardiomyopathy in other diseases classified elsewhere Essential hypertension Hyperlipidemia Paroxysmal atrial fibrillation Chief Complaint E-ORDER EORDER- HAND- thumb injury, pain, trauma Chief Complaint Admit Date EORDERS March 03, 2025 11:2 1am OVERDUE FOR FU March 06, 2025 8:17 am Reason for Visit Admit Date Encounter for monitoring flecainide ther apy March 06, 2025 8:17am Nonrheumatic mitral (valve) prolapse Feb 8:17am Cardiomyopathy in other diseases classif ied elsewhere March 06, 2025 8:17am Essential hypertension March 06, 2025 8 :17am Hyperlipidemia March 06, 2025 8:17 am Paroxysmal atrial fibrillation February 8:17am Reason for Visit Admit Date Encounter for monitoring flecainide ther apy March 06, 2025 8:17am Nonrheumatic mitral (valve) prolapse Feb 8:17am Cardiomyopathy in other diseases classif ied elsewhere March 06, 2025 8:17am Essential hypertension March 06, 2025 8 :17am Paroxysmal atrial fibrillation February 8:17am Summary Purpose Additional Source Comments Reason for Visit (unrecogniz ed section and content) Reason For Visit Description Postop - subsequent visit Preliminary reason f or visit data, not yet signed by the author as of left hand post Carpometacarp al interpositional arthroplasty ligament reconstruction; left thumb with flexor carpi radialis tendon transfer; Partial trapezoid resection; Endoscopic carpal tunnel release left on 06/25/2021 Reason For Visit Description Start Date Postop - subsequent visit Preliminary reason f or visit data, not yet signed by the author as of left hand post Carpometacarp al interpositional arthroplasty ligament reconstruction; left thumb with flexor carpi radialis tendon transfer; Partial trapezoid resection; Endoscopic carpal tunnel release left on 06/25/2021 Reason Comments New Care Teams (unrecognized sec tion and content) Team Status: Active Member Role Status Dates Dr. Dandre Stark MD Family Provider Active Dr. Dandre Ellsworth MD Primary Care Provider Active Team Status: Inactive Member Role Status Dates Kayley MARIE PA Attending Provider Active Team Status: Active Member Role Status Dates Dr. Dandre Ellsworth MD Primary Care Provider Active Dr. Coco Walters MD Attending Provider Active Team Status: Inactive Member Role Status Dates FRANK Staples Attending Provider, Referr ing Provider Active Dr. Dandre Ellsworth MD Primary Care Provider Active Team Status: Active Member Role Status Dates Dr. Dandre Ellsworth MD Primary Care Provider Active Dr. Coco Walters MD Attending Provider, Referring Pr ovider Active Team Status: Inactive Member Role Status Dates Dr. Dandre Ellsworth MD Primary Care Provider Active Kayley MARIE PA Attending Provider, Referr ing Provider Active Team Status: Inactive Member Role Status Dates Dr. Dandre Ellsworth MD Primary Care Pr ovider, Attending Provider, Referring Provider Active Team Status: Active Member Role/Relationship Status Dates Dr. Dandre Stark MD Family Provider Active Dr. Dandre Ellsworth MD Primary Care Provider Active Team Status: Active Member Role/Relationship Status Dates Dr. Dandre Ellsworth MD Primary Care Provider Active Start: March 03, 2025 Earnest Chadwick NP, NP-C Attending Provider Active Start: March 03, 2025 Earnest Chadwick NP, NP-C Referring Provider Active Start: March 03, 2025 Team Status: Inactive Member Role/Relationship Status Dates Dr. Dandre Ellsworth MD Primary Care Provider Active Start: March 06, 2025 End: March 06, 2025 Dr. Dandre Ellsworth MD Referring Provider Active Start: March 06, 2025 End: March 06, 2025 Kayley MARIE, PA Attending Provider Active Start: March 06, 2025 End: March 06, 2025 Team Status: Inactive Member Role/Relationship Status Dates Dr. Dandre Ellsworth MD Primary Care Provider Active Start: March 03, 2025 End: March 03, 2025 Earnest Chadwick NP, NP-C Attending Provider Active Start: March 03, 2025 End: March 03, 2025 Earnest Chadwick NP, NP-C Referring Provider Active Start: March 03, 2025 End: March 03, 2025 Goals (unrecognized section and content) Goals may be documented in a n alternate sectionGoals may be documented in an alternate sectionGoals may be documented in an alternate sectionGoals may be documented in an alternate sectionGoals may be documented in an alternate section Source Comments (unrecognize d section and content) In the event this informatio n is protected by the Federal Confidentiality of Alcohol and Drug Abuse Patient Records regulations: The Federal rules restrict any use of the information to criminally investigate or prosecute any alcohol or drug abuse patient.[facility] (unrecognized sect ion and content) No Status Records FoundNo Status Records Found INFORMATION SOURCE (unrecogn ized section and content) DATE CREATED AUTHOR 10/17/2023 [facility] DATE CREATED AUTHOR AUTHOR'S SAMI NAZARIO 04/01/2025 [facility] FOR RECORDS PERTAINING TO PATIENTS WHO ARE OR HAVE BEEN ENROLLED IN A CHEMICAL DEPENDENCY/SUBSTANCEABUSE PROGRAM, SOME INFORMATION MAY BE OMITTED. This clinical summary was aggregated from multiple sources. Caution should be exercised in using it in the provision of clinical care. This summary normalizes information from multiple sources, and as a consequence, information in this document may materially change the coding, format and clinical context of patient data. In addition, data may be omitted in some cases. CLINICAL DECISIONS SHOULD BE BASED ON THE PRIMARY CLINICAL RECORDS. [facility], [facility]. provides no warranty or guarantee of the accuracy or completeness of information in this document.
--- NOTE | 2025-04-01 17:05 | STRESSREP_ITS ---
Stress Test Report Exercise myocardial perfusion stress test. 69-year-old man with a history of antiarrhythmic use. Stress protocol: Resting EKG demonstrates normal sinus rhythm with a rate of 68 bpm resting blood pressure is 128/82 mmHg. The patient exercised according to the regular Julio Cesar protocol for a total duration of 7 minutes attaining a maximum heart rate of 146 bpm which was 97% of maximum predicted heart rate; the maximum workload was 10.1 metabolic equivalents. At rest there were no ST or T wave changes noted to suggest ischemia and at peak exercise upsloping ST changes only were noted which did not meet the criteria for ischemia. No clinical angina was noted the test was terminated due to the target heart rate being achieved/fatigue. The peak blood pressure was 164/80 mmHg. Rate-pressure product was 22,400. Myocardial perfusion protocol. 11.5 mCi of technetium 99m sestamibi was injected at rest. The patient exercised according to regular Julio Cesar protocol for total duration of 7 minutes and at peak exercise 34.4 mCi of technetium 99m sestamibi was injected stress images were obtained stress and rest images were reconstructed in comparing the short axis vertical long and horizontal long axis. Gated images were also obtained. Perfusion SPECT analysis: Review of the stress images demonstrate normal uptake of tracer noted in all a reas of the myocardium. The resting images similarly demonstrate normal uptake of tracer noted in all areas of the myocardium. No areas of reversibility are noted to suggest ischemia no previous infarct was noted. Gated SPECT analysis: The gated ejection fraction is 69% %. Conclusion: Normal exercise myocardial perfusion stress test at a high workload. No arrhythmias noted
== END | disposition home or self-care (01) ==
LOC: CVS 06:17
PROVIDERS: PCP Family Medicine; Referring Provider Physician Assistant Medical; Visit Provider Physician Assistant Medical
DX: R94.31 Abnormal electrocardiogram [ECG] [EKG] (principal); I48.0 Paroxysmal atrial fibrillation; Z51.81 Encounter for therapeutic drug level monitoring; Z79.899 Other long term (current) drug therapy
CPT/HCPCS: 78452; 93017; A9500; A4216